=== PATIENT | female | born 1950 | race Caucasian/White ===

== ENCOUNTER 2018-05-19 16:27 | Outpatient (REF) | payer MEDICARE, BC, SELFPAY ==
[2018-05-19 19:20] LABS: Cholesterol 229 mg/dL (50-200); Glucose 101 mg/dL (70-100); HDL Cholesterol 58 mg/dL (40-60); LDL CHOLESTEROL 141 mg/dL (<100); Triglyceride 151 mg/dL (30-150)
== END 2018-05-19 16:47 ==
LOC: NCHCN 16:27
PROVIDERS: PCP Family Medicine; Visit Provider Family Medicine
DX: R73.09 Other abnormal glucose (principal); E78.89 Other lipoprotein metabolism disorders
CPT/HCPCS: 80061; 82947; 83721

== ENCOUNTER 2018-05-30 01:05 | Outpatient (CLI) | payer MEDICARE, BC, SELFPAY ==
--- NOTE | 2018-05-30 12:00 | DI.MAMMO_ITS ---
SYMPTOM/DIAGNOSIS: SCREENING, [facility], [facility], Z00.00 MAMMOGRAMS: Mammograms were interpreted according to the usual protocol including computer analysis with CAD system, tomosynthesis and C view imaging. Comparison is made with exams from [id number]. The breasts are composed of scattered fibroglandular densities, breast density, Category B. No suspicious masses or suspicious microcalcifications are seen. There has been no significant change. IMPRESSION: Category 1B, negative mammogram. Yearly screening mammography is recommended. [facility] ASSESSMENT OF FINDINGS: Negative. Category 1. Patient will receive a letter notifying them of these results. BI-RADS category B. There are scattered areas of fibroglandular density.
== END 2018-05-30 01:25 ==
PROVIDERS: PCP Family Medicine; Visit Provider Family Medicine
DX: Z12.31 Encounter for screening mammogram for malignant neoplasm of breast (principal)
CPT/HCPCS: 77063; 77067

== ENCOUNTER 2019-05-22 16:44 | Outpatient (REF) | payer MEDICARE, BC, SELFPAY ==
[2019-05-22 19:58] LABS: Glucose 94 mg/dL (74-106); TSH (W/Ref FT4) 2.65 uIU/mL (0.36-3.74); Vitamin B12 402 pg/mL (193-986)
== END 2019-05-22 17:04 ==
LOC: NCHCN 16:44
PROVIDERS: PCP Family Medicine; Visit Provider Family Medicine
DX: R20.0 Anesthesia of skin (principal)
CPT/HCPCS: 82947; 82607; 84443

== ENCOUNTER 2019-10-10 21:16 | Outpatient (REF) | payer MEDICARE, BC, SELFPAY ==
[2019-10-10 20:16] LABS: Abs Immature Grans 0.01 k/cumm (0.0-0.09); Absolute Basophil Count 0.04 k/cumm (0.0-0.2); Absolute Eosinophil Count 0.19 k/cumm (0.0-0.7); Absolute Lymphocyte Count 2.12 k/cumm (1.2-3.4); Absolute Monocyte Count 0.61 k/cumm (0.11-0.7); Absolute Neutrophil Count 5.36 k/cumm (1.2-6.7); Basophils % 0.5; Eosinophils % 2.3; HCT 42.6 % (36.0-46.0); HGB 13.9 g/dL (12.0-15.5); Immature Grans % 0.1 %; Lymphocytes % 25.5; Mean Corp. HGB Concentration 32.6 g/dL (32.0-36.0); Mean Corpuscular Volume 91.8 fL (80-95); Mean Platelet Volume 10.8 fL (8.0-11.0); Monocytes % 7.3; Neutrophils % 64.3; Platelet Count 365 x1000/uL (130-400); RBC 4.64 m/cumm (4.00-5.20); RBC Distribution Width 13.7 % (11.7-14.6); White Blood Cell Count 8.33 k/cumm (4.4-10.8)
[2019-10-10 21:09] LABS: ALT 730 U/L (14-59); AST 322 U/L (15-37); Albumin 4.5 g/dL (3.4-5.0); Alkaline Phosphatase 252 U/L (46-116); Anion Gap 10.6 mmol/L (3-11); BUN 17 mg/dL (7-18); Bilirubin, Total 0.9 mg/dL (0.2-1.0); CO2 27.4 mmol/L (21.0-32.0); CREATININE 0.96 mg/dL (0.55-1.02); Calcium 9.7 mg/dL (8.5-10.1); Chloride 103 mmol/L (98-107); Estimated GFR 57.29 (mL/min/1.73m2); Glucose 104 mg/dL (74-106); Potassium 4.6 mmol/L (3.5-5.1); Sodium 141 mmol/L (136-145)
[2019-10-12 10:52] LABS: GGT 507 U/L (5-55)
[2019-10-15 11:47] LABS: Hepatitis A Antibody IgM Negative (Negative); Hepatitis B Core Antibody Negative (Negative); Hepatitis B surface Ag Negative (Negative); Hepatitis C Ab w Rflx HCV PCR Negative (Negative)
== END 2019-10-10 21:36 ==
LOC: NCHCN 21:16
PROVIDERS: PCP Family Medicine; Visit Provider Physician Assistant Medical
DX: R10.11 Right upper quadrant pain (principal); R74.0 Nonspecific elevation of levels of transaminase and lactic acid dehydrogenase [LDH]; R74.8 Abnormal levels of other serum enzymes; R79.89 Other specified abnormal findings of blood chemistry
CPT/HCPCS: 80053; 86704; 86709; 86803; 87340; 82977; 85025

== ENCOUNTER 2019-10-12 03:31 | Outpatient (CLI) | payer MEDICARE, BC, SELFPAY ==
--- NOTE | 2019-10-12 | DI.US_ITS ---
EXAM: US ABDOMEN CLINICAL HISTORY: RUQ PAIN, R10.11 TECHNIQUE: Ultrasound abdomen performed using standard protocol. COMPARISON: No exams were available for comparison FINDINGS: ABDOMINAL AORTA AND IVC: Visualized portions normal caliber. PANCREAS: Normal where visualized. LIVER: Fatty liver. Hepatopedal flow in the Portal Vein. GALLBLADDER: Multiple mobile gallstones. No evidence of wall thickening. Trace amount of pericholecy stic fluid. Gallbladder distended to 6 cm in transverse diameter. BILIARY SYSTEM: Common bile duct measures 1.4 cm.. No choledochal lithiasis seen sonographically. N o intrahepatic biliary ductal dilatation. LEVIN'S SIGN: Negative. KIDNEYS: Kidneys are symmetric in size. No evidence of renal calculi. No evidence of hydronephrosis. No renal mass or cyst identified. SPLEEN: Not enlarged. ASCITES: None seen. IMPRESSION: 1. Cholelithiasis, distended gallbladder and trace pericholecystic fluid. 2. Dilated common bile duct without evidence of choledocholithiasis sonographically. 3. Hepatic steatosis. DATA REPOSITORY:
== END 2019-10-12 03:51 ==
PROVIDERS: PCP Family Medicine; Visit Provider Physician Assistant Medical
DX: R10.11 Right upper quadrant pain (principal); K80.20 Calculus of gallbladder without cholecystitis without obstruction; K83.8 Other specified diseases of biliary tract; K76.0 Fatty (change of) liver, not elsewhere classified
CPT/HCPCS: 76700

== ENCOUNTER → 2019-10-18 11:20 | Outpatient (BNVA) | payer MEDICARE, BC, SELFPAY | PROVIDERS: PCP Family Medicine; Referring Provider Family Medicine; Visit Provider Surgery | DX: K80.20 Calculus of gallbladder without cholecystitis without obstruction (principal) | CPT/HCPCS: 99204 ==

== ENCOUNTER 2019-10-19 09:37 | Outpatient (CLI) | payer MEDICARE, BC, SELFPAY ==
[2019-10-20 02:15] LABS: COVID-19 RT-PCR UVMMC Result Negative (Negative)
== END 2019-10-19 09:57 ==
PROVIDERS: PCP Family Medicine; Visit Provider Surgery
DX: Z11.59 Encounter for screening for other viral diseases (principal); Z01.818 Encounter for other preprocedural examination
CPT/HCPCS: U0003

== ENCOUNTER 2019-10-23 06:42 | Day surgery (SDC) | payer MEDICARE, BC, SELFPAY ==
[2019-10-23] VITALS (7 sets, daily range): BP systolic 97–130; BP diastolic 56–80; PULSE 63–76; RESP 16–23; TEMP 36–36.8; O2SAT 97–100
--- NOTE | 2019-10-23 07:00 | DI.RAD_ITS ---
EXAM: XR CHOLANGIOGRAM OPERATIVE CLINICAL HISTORY: cholecystitis COMPARISON: No exams were available for comparison FINDINGS: C-arm fluoroscopy was utilized by Dr. Kruger during reported OR cholangiogram. Hard copy shows dilated intra and extrahepatic bile ducts to the level of the distal common bile duct where there is signifi cant narrowing suspicious for extrinsic mass or stricture. Fluoro time 129 seconds
[2019-10-23] MEDS: Lactated Ringers 1,000 ML 80 ML IV ×2 (07:30→10:30)
--- NOTE | 2019-10-23 08:28 | W.PM.DSUDISC ---
Discharge Plan Disposition Patient Disposition: HOME Condition: Good Discharge Details Reason For Visit: Laparoscopic cholecystectomy with cholangiogram Attending Provider: Yolande Kruger Primary Care Provider: Nubia Santana V Home Meds and New Rx's Prescriptions: Continued loratadine 10 mg Tablet 10 mg PO DAILY RF: 0 Discharge Instructions Additional Instructions: The dye study of the common bile duct did show a stone. My office will make a referral to [facility]. The top bandage can be removed tomorrow. The steri strips will usually stick for about a week. When the edges start to curl up, they can be removed. It is okay to shower tomorrow, the water can run over the steri strips Do not swim or soak in a tub for two weeks Call for any concerns including fever, increased pain, vomiting, incision redness or drainage. Do not lift more than 15 pounds for two weeks. Walking and stairs are fine. Do not drive if on narcotic pain meds or if limited by pain. May use Tylenol alternating with ibuprofen for pain control. Ice is also an option. The maximum dose for Tylenol is 4000 mg/day. May use ibuprofen 800 mg every 8 hours as needed. If concerned about constipation, you may use a stool softener or milk of magnesia. Referrals: Yolande Kruger MD [ [facility] STAFF PHYSICIAN] - (Return in 10-14 days for a postop visit) Activity:: Do not lift more than 15 pounds for two weeks Remove Dressings/Wound Care:: 24 hours Shower/Bathe:: 24 hours Diet:: Low fat for two weeks Discharge Orders Discharge Orders: Discharge Order (Routine); Ordered 10/23/19 Ordered By: Yolande Kruger DS: Diagnosis Discharge Diagnosis (1) Chronic cholecystitis: Status: Acute (2) Choledocholithiasis: Status: Acute
[2019-10-23] MEDS: ceFAZolin 2 GM/50 ML BAG IVPB (08:30)
[2019-10-23] MEDS: Bupivacaine 0.5% Pres-Free 30 ML VIAL (09:01)
[2019-10-23] MEDS: Omnipaque 300 MG/ML 50 ML BTL (09:02)
--- NOTE | 2019-10-23 10:00 | GB_PTH ---
PATIENT: Analilia Jacome LOC: [facility] U#:[id number] AGE/SX: 69/F ROOM: RE10/23/[address]: Yolande Kruger MD : [id number] BED: DIS: 10/23/2019 SPEC #: [id number] RECD: 10/23/19 12:42 STATUS: [place] REQ #: [id number] NOHEMI: 10/23/19 10:[address]: Yolande Kruger DEPT: Surgical Specimen RECD BY: Enedina Tubbs ENTERED: 10/23/19 12:42 SP TYPE: GB OTHR DR: Nubia Santana V Tissues: 1 - GALLBLADDER Procedures: GROSS AND MICRO LEVEL 3 Comments: [id number]
--- NOTE | 2019-10-23 10:18 | W.PM.OP ---
Date of service: 10/23/19 Time of Service: 10:18 Operative Note Operative Note DATE OF PROCEDURE: 10/23/19 PRE-OP DIAGNOSIS: Cholelithiasis POST-OP DIAGNOSIS: other (Chronic cholecystitis, choledocholithiasis) PROCEDURE: Laparoscopic cholecystectomy with cholangiogram SURGEON: Yolande Kruger ROTARY SHEAR CUTTER: Gita Peterson ANESTHESIA: GETA and local Indications: This patient presented with typical biliary colic symptoms. She had an ultrasound that showed gallstones, trace pericholecystic fluid and a dilated common bile duct. Her LFTs were elevated although her T bili was normal. The patient's history is significant for an episode of jaundice about 5 years ago. Procedure Description: The patient was placed supine on the operating table and after induction of general anesthetic was prepped and draped sterilely. A 5 mm incision was made to the left of the umbilicus after injecting local anesthetic and the abdomen entered under direct visualization. A CO2 pneumoperitoneum was begun and she was placed in reverse Trendelenburg position. The epigastric and 2 lateral ports were placed after injecting local anesthetic under direct visualization. The gallbladder was noted to be distended and quite long. There was some edema in the wall but not dramatic inflammation. The gallbladder was decompressed of 120 cc of bile for easier grasping and manipulation. The fundus was pulled up over the liver and the infundibulum retracted laterally. The common bile duct was noted to be very dilated as were the right and left hepatic ducts. The cystic duct was isolated and visualized going directly onto the gallbladder. This was not dilated. The artery was also visualized going onto the gallbladder and was clipped twice proximally once distally and divided. A clip was applied on the gallbladder side of the cystic duct and then a small opening made in the cystic duct with scissors. The cystic duct was palpated and there were no stones within it. The cholangiocatheter was introduced via the catheter inserted in the right upper quadrant. A tiny stab incision has been made here. The catheter was inserted into the cystic duct and the balloon inflated. There was easy flow of injectable saline. The cholangiogram was performed which showed the catheter to be in good position in the cystic duct. The right and left hepatic ducts were visualized and were quite dilated as was the upper two thirds of the common duct. There was a lot of pressure with injecting and it took a long time for the contrast to pass down into the duodenum. Only a trickle got past what appears to be a large stone and there was a trace amount of contrast that eventually reached into the duodenum. The cholangiocatheter was removed and 2 clips applied on the distal cystic duct. The cystic duct was then divided where the cholangiocatheter had been inserted. The gallbladder was dissected off the liver bed with hook cautery. There is an additional vascular branch that was clipped and divided. Gallbladder was placed in the Endo Catch bag and actually had to be decompressed further because it filled up the entire bag. This was pulled up out through the epigastric incision which had to be extended to allow for passage of the gallbladder with numerous stones. Inspection of the operative site revealed no bleeding or bile leak. The ports were removed with no evidence of bleeding. The fascia was closed at the epigastric incision with 0 Vicryl sutures and the skin closed at all port sites with a 4-0 Monocryl subcuticular stitch. She tolerated procedure well and was stable to recovery. She will be referred to gastroenterology for ERCP.
== END 2019-10-23 12:35 | disposition home or self-care (01) ==
PROVIDERS: PCP Family Medicine; Visit Provider Surgery
PROC: 0FT44ZZ Resection of Gallbladder, Percutaneous Endoscopic Approach (ICD-10-PCS; CPT 47563; principal; 2019-10-23 08:15)
DX: K80.10 Calculus of gallbladder with chronic cholecystitis without obstruction (principal)
CPT/HCPCS: 47563; 74300; 88304; J0131; J0690; J1100; J1885; J2001; J2405; J2704; Q9967

== ENCOUNTER → 2019-11-08 08:51 | Outpatient (BNVA) | payer MEDICARE, BC, SELFPAY | PROVIDERS: PCP Family Medicine; Referring Provider Family Medicine; Visit Provider Surgery | DX: Z48.815 Encounter for surgical aftercare following surgery on the digestive system (principal); Z90.49 Acquired absence of other specified parts of digestive tract ==

== ENCOUNTER 2019-11-29 08:50 | Outpatient (RCR) | payer MEDICARE, BC, SELFPAY ==
[2019-11-29 09:59] LABS: Abs Immature Grans 0.02 10^3/uL (0.0-0.06); Absolute Basophil Count 0.05 10^3/uL (0.0-0.2); Absolute Eosinophil Count 0.23 10^3/uL (0.0-0.7); Absolute Lymphocyte Count 1.58 10^3/uL (1.2-3.4); Absolute Monocyte Count 0.52 10^3/uL (0.1-0.8); Absolute Neutrophil Count 4.28 10^3/uL (1.2-6.7); Basophils % 0.7; Eosinophils % 3.4; Immature Grans % 0.3; Lymphocytes % 23.7; MCH 29.5 pg (27.0-33.0); MCHC 32.5 % (32.0-36.0); MCV 90.9 fL (80-95); MPV 10.7 fL (8.0-11.0); Monocytes % 7.8; Neutrophils % 64.1; Platelet Count 390 10^3/uL (130-400); RDW-SD 47.2 fL; WBC 6.68 10^3/uL (4.4-10.8)
[2019-11-29 10:32] LABS: ALT 85 U/L (14-59); AST 20 U/L (15-37); Albumin 3.7 g/dL (3.4-5.0); Alkaline Phosphatase 330 U/L (46-116); Anion Gap 10.3 mmol/L (3-11); BUN 18 mg/dL (7-18); Bilirubin, Total 1.2 mg/dL (0.2-1.0); CO2 26.7 mmol/L (21.0-32.0); CREATININE 0.75 mg/dL (0.55-1.02); Calcium 9.5 mg/dL (8.5-10.1); Chloride 100 mmol/L (98-107); Glucose 122 mg/dL (74-106); Potassium 4.4 mmol/L (3.5-5.1); Sodium 137 mmol/L (136-145)
[2019-11-30 10:26] LABS: CA 19-9 594 U/mL (<35)
[2019-12-03 19:22] LABS: DPYD Predicted Toxicity Risk Normal
== END 2019-11-30 23:59 | disposition home or self-care (01) ==
LOC: INF 08:50
PROVIDERS: PCP Family Medicine; Visit Provider Internal Medicine Hematology & Oncology
DX: C25.9 Malignant neoplasm of pancreas, unspecified (principal)
CPT/HCPCS: 36415; 80053; 81232; 85025; 86301

== ENCOUNTER 2019-12-28 04:54 | Outpatient (RCR) | payer MEDICARE, BC, SELFPAY ==
[2019-12-14 09:04] LABS: Abs Immature Grans 0.02 10^3/uL (0.0-0.06); Absolute Basophil Count 0.04 10^3/uL (0.0-0.2); Absolute Eosinophil Count 0.12 10^3/uL (0.0-0.7); Absolute Lymphocyte Count 1.47 10^3/uL (1.2-3.4); Absolute Monocyte Count 0.36 10^3/uL (0.1-0.8); Absolute Neutrophil Count 5.72 10^3/uL (1.2-6.7); Basophils % 0.5; Eosinophils % 1.6; HCT 36.6 % (36.0-46.0); Immature Grans % 0.3; MCH 29.8 pg (27.0-33.0); MCHC 32.8 % (32.0-36.0); MCV 90.8 fL (80-95); MPV 11.3 fL (8.0-11.0); Monocytes % 4.7; Neutrophils % 73.9; Nucleated RBC 0 %; Platelet Count 199 10^3/uL (130-400); RBC 4.03 10^6/uL (3.93-5.22); RDW 13.9 % (11.7-14.6); RDW-SD 46.5 fL; WBC 7.73 10^3/uL (4.4-10.8)
[2019-12-14] MEDS: Normal Saline Flush 10 ML SYR IVP (09:27)
[2019-12-14] MEDS: Heparin 500 UNITS/5 ML SYRINGE IVP (09:28)
[2019-12-14 09:30] LABS: ALT 28 U/L (14-59); AST 16 U/L (15-37); Albumin 3.6 g/dL (3.4-5.0); Alkaline Phosphatase 128 U/L (46-116); Anion Gap 9.1 mmol/L (3-11); BUN 17 mg/dL (7-18); Bilirubin, Total 0.9 mg/dL (0.2-1.0); CO2 26.9 mmol/L (21.0-32.0); Chloride 100 mmol/L (98-107); Glucose 243 mg/dL (74-106); Sodium 136 mmol/L (136-145); Total Protein 7.4 g/dL (6.4-8.2)
[2019-12-28] MEDS: Normal Saline Flush 10 ML SYR IVP (10:35)
[2019-12-28] MEDS: Heparin 500 UNITS/5 ML SYRINGE IVP (10:35)
[2019-12-28 11:01] LABS: Abs Immature Grans 0.02 10^3/uL (0.0-0.06); Absolute Basophil Count 0.02 10^3/uL (0.0-0.2); Absolute Eosinophil Count 0.15 10^3/uL (0.0-0.7); Absolute Lymphocyte Count 1.66 10^3/uL (1.2-3.4); Absolute Monocyte Count 0.65 10^3/uL (0.1-0.8); Absolute Neutrophil Count 5.92 10^3/uL (1.2-6.7); Basophils % 0.2; Eosinophils % 1.8; HCT 35.3 % (36.0-46.0); HGB 11.5 g/dL (11.2-15.7); Immature Grans % 0.2; Lymphocytes % 19.7; MCH 29.1 pg (27.0-33.0); MCHC 32.6 % (32.0-36.0); MCV 89.4 fL (80-95); MPV 10.4 fL (8.0-11.0); Monocytes % 7.7; Neutrophils % 70.4; Nucleated RBC 0 %; Platelet Count 285 10^3/uL (130-400); RBC 3.95 10^6/uL (3.93-5.22); RDW 13.5 % (11.7-14.6); RDW-SD 44.2 fL; WBC 8.42 10^3/uL (4.4-10.8)
[2019-12-28 11:30] LABS: ALT 25 U/L (14-59); AST 18 U/L (15-37); Albumin 3.1 g/dL (3.4-5.0); Alkaline Phosphatase 84 U/L (46-116); Anion Gap 8.3 mmol/L (3-11); BUN 12 mg/dL (7-18); Bilirubin, Total 0.6 mg/dL (0.2-1.0); CO2 29.7 mmol/L (21.0-32.0); CREATININE 0.78 mg/dL (0.55-1.02); Calcium 8.7 mg/dL (8.5-10.1); Chloride 101 mmol/L (98-107); Glucose 129 mg/dL (74-106); Potassium 3.5 mmol/L (3.5-5.1); Sodium 139 mmol/L (136-145); Total Protein 6.8 g/dL (6.4-8.2)
[2019-12-31 12:43] LABS: CA 19-9 221 U/mL (<35)
== END 2019-12-31 23:59 | disposition home or self-care (01) ==
LOC: INF 04:54
PROVIDERS: Internal Medicine Hematology & Oncology; PCP Family Medicine; Visit Provider Internal Medicine Hematology & Oncology
DX: K86.89 Other specified diseases of pancreas (principal); C25.0 Malignant neoplasm of head of pancreas
CPT/HCPCS: 36591; 80053; 81232; 85025; 86301

== ENCOUNTER 2020-01-10 14:16 | Emergency (ER) | payer MEDICARE, BC, SELFPAY ==
[2020-01-10] VITALS (17 sets, daily range): BP systolic 115–145; BP diastolic 53–62; PULSE 89–108; RESP 13–27; TEMP 38–38.2; O2SAT 85–96
--- NOTE | 2020-01-10 14:30 | DI.CT_ITS ---
EXAM: CT CHEST PE ABD PELVIS W CLINICAL HISTORY: FEVER, LOWER BACK PAIN, DYSPNEA. TECHNIQUE: Imaging Protocol: Axial CT angiography was performed with multi-slice acquisition and mu lti-planar and/or 3D reconstructions. CONTRAST MATERIAL: Intravenous: Omnipaque 350 Contrast volume:100 cc COMPARISON: No exams were available for comparison FINDINGS: Chest CT: There is no evidence of pulmonary emboli or aortic dissection. There are no thoracic compr ession fractures or evidence of pneumothorax. The lungs are clear. A port is noted over the right u pper chest. Heart size is normal. The lungs are clear. There is no adenopathy. Abdomen/Pelvic CT: There is a cyst common bile duct stent. Patient is status post cholecystectomy. There is air in the biliary tree. There is debris versus mass in the distal aspect of the stent. Th ere is prominence of the left adrenal gland without focal mass. There is calcification of the aorta but no evidence of dissection or vascular occlusion. The spleen is normal in size. The kidneys are unremarkable. There is extensive diverticulosis, greatest of the sigmoid. There is no evidence of d iverticulitis. The appendix appears normal. There is no bowel dilatation. There is no ascites. Th e bladder is nearly empty. Uterus and ovaries are unremarkable. Degenerative changes are seen in th e spine. There is no evidence of compression fractures. No lytic or blastic lesions are identified. IMPRESSION: No evidence of pulmonary embolism. No acute abnormality is seen in the abdomen or pelvis. There is a distal common bile duct stent with some debris versus mass distally. RADIATION DOSE DELIVERED: Total DLP DATA REPOSITORY: All CT scans at this facility are submitted to the National Radiology Data Registry (NRDR) Dose Index Registry (DIR) with the [employer] (ACR). RADIATION OPTIMIZATION: All CT scans at this facility use at least one of these dose optimization te chniques: automated exposure control; mA and/or kV adjustment per patient size (includes targeted exa ms where dose is matched to clinical indication); or iterative reconstruction.
--- NOTE | 2020-01-10 14:41 | ED.GENADUL_ITS ---
Discharge Plan Disposition Patient Disposition: HOME Condition: Stable Discharge Details Clinical Impression: Fever Primary Care Provider: Nubia Santana V ED Provider: Antony Perez Home Meds and New Rx's Prescriptions: Continued loratadine 10 mg Tablet 10 mg PO QAM RF: 0 Discharge Instructions Additional Instructions: your blood work and cat scans did not show any concerning findings I spoke with the business continuity planner oncologist that works with Dr. Lu who after review of your blood work and imaging results felt it was appropriate for you to be d/c'd and f/u with Dr. Lu as scheduled tomorrow if you feel more ill, have severe weakness or severe worsening pain return to the emergency department Medical Decision Making 69 yo female with hx of pancreatic cancer on her second round of chemotherapy per patient comes in with fever to 100.3 at home starting today. SHe has noticed very mild shortness of breath the past few days as well, no cough, no travel, no vomit, no abdominal pain. Does also note some right lower back pain, no urinary symptoms. No midline pain, no saddle anesthesia, normal gait and reflexes. Given her being on chemo concern for neutropenic fever, will obtain cultures from her port and lab work, and given her the dyspnea obtain cta of the chest to eval for pe vs pna and also ct abd/pelvis to evaluate for kidney stone, pyelo, and possible abscess imaging and labs unremarkable, she remains hd stable, hr 90 bp 120/60. Dr. Lu not in the office today, does have an appointment with him tomorrow. She feels well and feels comfortable with d/c and f/u with him tomorrow, will consult with oncology at [facility] spoke with Dr. Puentes from oncology at [facility] who after review of pt's lab values, no neutropenia and reassuring imaging could f/u tomorrow with them and return to the ED if worsening. Pt remains feeling well and is comfrotable with d/c Differential Diagnosis Differential Diagnosis: neutropenic fever, pna, uti, abscess Medical Records Medical records reviewed: Yes I reviewed the patient's medical records. Imaging Data Radiologic Study: Attestation: I personally reviewed and interpreted this imaging study as follows: Imaging: CT Scan Radiologist's impression: MPRESSION: No evidence of pulmonary embolism. No acute abnormality is seen in the abdomen or pelvis. There is a distal common bile duct stent with some debris versus mass distally. Lab Data Lab results reviewed: Yes I reviewed the patient's lab results. HPI General Mode of arrival: ambulatory . Date/Time Provider Initiated Documentation: 01/10/20 14:21 . Limitations to Documentation: no limitations . Information obtained by: patient . History of Present Illness 69 year old F presents to the emergency department with the chief complaint of fever, described as moderate, and it has been constant. No relieving factors improve symptom(s), No exacerbating factors reported . Patient did receive the following treatments prior to arrival, none Related Data Home Medications Medication Instructions Recorded Confirmed loratadine 10 mg PO QAM 10/23/19 01/10/20 Allergies Allergy/AdvReac Type Severity Reaction Status Date / Time acetaminophen AdvReac Severe vomiting Verified 01/10/20 15:23 [From Darvocet-N] and nausea propoxyphene AdvReac Severe vomiting Verified 01/10/20 15:23 [From Darvocet-N] and nausea General Stated Complaint: Fever OBDULIA: 2 Review of Systems All systems reviewed & are unremarkable except as noted in HPI and below Constitutional Constitutional: Denies chills and Denies weakness Cardiovascular Cardiovascular: Denies chest pain Respiratory Respiratory: Denies cough Gastrointestinal Gastrointestinal: Denies abdominal pain, Denies nausea and Denies vomiting Musculoskeletal Musculoskeletal: Denies joint swelling Neurologic Neurologic: Denies weakness Psychiatric Psychiatric: Denies depression [facility] Medical History (Updated 01/10/20 @ 16:20 by Antony Perez MD) Arthritis Surgical History S/P ACL repair left Family History Mother Breast cancer Social History Smoking/Tobacco Use Status: Former Tobacco Use Alcohol Intake: current Alcohol Intake frequency: holidays/special occasions only Alcohol type: wine and other Substance use type: does not use Current gender identity: female Do you feel safe at home: Yes Do you feel safe in your relationship?: Yes Exam Const General: no acute distress Orientation: alert HENMT Head: normal to inspection Ears: external ears normal General nose exam: external nose normal Mouth: moist mucous membranes Eyes General: appearance normal, both eyes and all related structures Neck Neck: normal visual inspection Resp Effort & Inspection: normal respiratory effort and able to speak in complete sentences Cardio Rate: regular rate GI Palpation: soft Skin General skin exam: no rashes or lesions noted Neuro General: patient alert and patient oriented x3 Extrem General: normal to inspection Psych Mental Status: mental status grossly normal Course Vital Signs Vital signs: Vital Signs Temperature 38.2 C H 01/10/20 14:20 Pulse 108 H 01/10/20 14:20 Respiratory Rate 20 01/10/20 14:20 Blood Pressure 145/53 H 01/10/20 14:20 Pulse Oximetry 96 01/10/20 14:20 Temperature 38.2 C H 01/10/20 14:20 Temperature Source Skin 01/10/20 14:20 Pulse 108 H 01/10/20 14:20 Respiratory Rate 20 01/10/20 14:20 Respiratory Effort 01/10/20 14:27 Blood Pressure 145/53 H 01/10/20 14:20 Blood Pressure Position Sitting 01/10/20 14:20 Pulse Oximetry 96 01/10/20 14:20 Oxygen Delivery Method Room Air 01/10/20 14:20 Oxygen Flow Rate 0 01/10/20 14:20 Pain Level 4 01/10/20 14:20 Comment took tylenol last night 01/10/20 14:20 Lab/Test Results Lab/Test Results: 01/10/20 14:22 Blood Blood Culture - Pending 01/10/20 14:22 Blood Blood Culture - Pending
[2020-01-10] MEDS: Normal Saline 1,000 ML 1000 ML IV (15:00)
[2020-01-10 15:23] LABS: Bilirubin Negative (Negative); Blood Trace-lysed (Negative); Clarity Clear (Clear); Glucose Negative (Negative); Ketones Negative (Negative); Leukocyte Esterase Negative (Negative); Nitrite Negative (Negative); Specific Gravity 1.025 (1.005-1.025); Urobilinogen 0.2 EU/dL (Up TO 0.2); pH 5.5 (5-8)
[2020-01-10 15:26] LABS: Abs Immature Grans 0.02 10^3/uL (0.0-0.06); Absolute Basophil Count 0.01 10^3/uL (0.0-0.2); Absolute Eosinophil Count 0.03 10^3/uL (0.0-0.7); Absolute Lymphocyte Count 0.59 10^3/uL (1.2-3.4); Absolute Monocyte Count 0.51 10^3/uL (0.1-0.8); Absolute Neutrophil Count 4.85 10^3/uL (1.2-6.7); Basophils % 0.2; Eosinophils % 0.5; HCT 33.1 % (36.0-46.0); HGB 10.8 g/dL (11.2-15.7); Immature Grans % 0.3; Lymphocytes % 9.8; MCH 29.2 pg (27.0-33.0); MCHC 32.6 % (32.0-36.0); MCV 89.5 fL (80-95); MPV 9.8 fL (8.0-11.0); Monocytes % 8.5; Neutrophils % 80.7; Nucleated RBC 0 %; Platelet Count 194 10^3/uL (130-400); RDW 13.7 % (11.7-14.6); RDW-SD 44.5 fL; WBC 6.01 10^3/uL (4.4-10.8)
[2020-01-10 15:29] LABS: Lactate 2.1 mmol/L (0.6-1.4)
[2020-01-10] MEDS: Normal Saline - Diluent 50 ML VIAL IV (15:29)
[2020-01-10] MEDS: Omnipaque 350 MG/ML 100 ML BTL IJ (15:29)
[2020-01-10 15:33] LABS: Bacteria Negative HPF (Negative); C & S Indicated? C&S Done As Ordered; Casts 0-2 Hyaline LPF (Negative); Crystals Negative HPF (Negative); Epithelial Cells Few HPF (Negative); Mucus Trace (Negative)
[2020-01-10 15:42] LABS: ALT 30 U/L (14-59); AST 18 U/L (15-37); Albumin 3.1 g/dL (3.4-5.0); Alkaline Phosphatase 91 U/L (46-116); BUN 11 mg/dL (7-18); Bilirubin, Direct 0.19 mg/dL (0.00-0.20); Bilirubin, Total 0.7 mg/dL (0.2-1.0); CREATININE 0.87 mg/dL (0.55-1.02); Calcium 8.5 mg/dL (8.5-10.1); Chloride 98 mmol/L (98-107); Glucose 146 mg/dL (74-106); Magnesium 1.7 mg/dL (1.8-2.4); Potassium 3.8 mmol/L (3.5-5.1); Sodium 134 mmol/L (136-145); Total Protein 6.7 g/dL (6.4-8.2)
[2020-01-10 15:48] LABS: PTT Activated 25.6 sec (21.0-31.4); Prothrombin Time 10.4 sec (9.3-11.0)
[2020-01-10 16:11] LABS: Procalcitonin 0.9 ng/mL
[2020-01-11 01:43] LABS: COVID-19 RT-PCR UVMMC Result Negative (Negative)
--- NOTE | 2020-01-11 08:40 | NUR.NOTE ---
Nursing Note: Pt contacted via phone and notified of negative covid and influenza results, pt verbalized understanding and had no questions.
== END 2020-01-10 17:00 | disposition home or self-care (01) ==
PROVIDERS: Emergency Provider Emergency Medicine; PCP Family Medicine
DX: R50.9 Fever, unspecified (principal); C25.9 Malignant neoplasm of pancreas, unspecified; R06.00 Dyspnea, unspecified; Z79.899 Other long term (current) drug therapy; Z11.59 Encounter for screening for other viral diseases
CPT/HCPCS: 71275; 74177; 80053; 84145; 87040; 87449; 96360; 99285; U0003; 81003; 81015; 82248; 83605; 83735; 85025; 85610; 85730; 87086; 99284; J3490

== ENCOUNTER 2020-01-18 04:00 | Outpatient (RCR) | payer MEDICARE, BC, SELFPAY ==
[2020-01-18] MEDS: Normal Saline Flush 10 ML SYR IVP (13:50)
[2020-01-18] MEDS: Heparin 500 UNITS/5 ML SYRINGE IV (13:50)
[2020-01-18 14:18] LABS: ALT 36 U/L (14-59); AST 20 U/L (15-37); Albumin 3.1 g/dL (3.4-5.0); Alkaline Phosphatase 158 U/L (46-116); BUN 16 mg/dL (7-18); Bilirubin, Total 0.4 mg/dL (0.2-1.0); Calcium 8.7 mg/dL (8.5-10.1); Chloride 102 mmol/L (98-107); Glucose 148 mg/dL (74-106); Potassium 3.7 mmol/L (3.5-5.1); Sodium 138 mmol/L (136-145); Total Protein 6.7 g/dL (6.4-8.2)
[2020-01-18 14:18] LABS: Abs Immature Grans 0.07 10^3/uL (0.0-0.06); Absolute Basophil Count 0.02 10^3/uL (0.0-0.2); Absolute Eosinophil Count 0.28 10^3/uL (0.0-0.7); Absolute Lymphocyte Count 2.42 10^3/uL (1.2-3.4); Absolute Monocyte Count 0.73 10^3/uL (0.1-0.8); Absolute Neutrophil Count 2.51 10^3/uL (1.2-6.7); Basophils % 0.3; Eosinophils % 4.6; HCT 33.5 % (36.0-46.0); HGB 10.8 g/dL (11.2-15.7); Immature Grans % 1.2; Lymphocytes % 40.1; MCH 29.2 pg (27.0-33.0); MCHC 32.2 % (32.0-36.0); MCV 90.5 fL (80-95); MPV 9.7 fL (8.0-11.0); Monocytes % 12.1; Neutrophils % 41.7; Nucleated RBC 0 %; RDW 14.5 % (11.7-14.6); RDW-SD 46.6 fL; WBC 6.03 10^3/uL (4.4-10.8)
[2020-01-18 14:22] LABS: Platelet Count 373 10^3/uL (130-400)
[2020-01-21 10:02] LABS: CA 19-9 188 U/mL (<35)
== END 2020-01-30 23:59 | disposition home or self-care (01) ==
LOC: INF 04:00
PROVIDERS: PCP Family Medicine; Visit Provider Internal Medicine Hematology & Oncology
DX: C25.0 Malignant neoplasm of head of pancreas (principal); K86.89 Other specified diseases of pancreas; Z45.2 Encounter for adjustment and management of vascular access device
CPT/HCPCS: 36591; 80053; 85025; 86301

== ENCOUNTER 2020-02-21 02:14 | Outpatient (CLI) | payer MEDICARE, BC, SELFPAY ==
--- NOTE | 2020-02-21 | DI.CT_ITS ---
EXAM: CT CHEST/ABD/PEL W CLINICAL HISTORY: PANCREATIC CA,C25.0,ASSESS TREATMENT RESPONSE. TECHNIQUE: Imaging Protocol: Axial computed tomography images with coronal and sagittal reformatted images were created and reviewed CONTRAST MATERIAL: Intravenous: Omnipaque 350 Contrast volume: 100 cc Oral: yes COMPARISON: CT CT CHEST PE ABD PELVIS W from 01/10/2020 FINDINGS: CHEST: Thyroid: Normal Tracheobronchial tree: Patent . Mediastinum and Carla: No dominant adenopathy or fluid collection. Pulmonary parenchyma: No consolidation or dominant measurable mass. No suspicious pulmonary nodules. Pleura: No effusion or pneumothorax. Lymph nodes: Within normal limits. Aorta: Dilatation of the ascending aorta to 3.9 cm.. Heart: Normal size. Bones: The bones appear osteopenic. No discrete lytic or blastic lesions are identified. ABDOMEN: Liver: Normal density. Tiny hypodensity posteriorly in the right lobe appears stable. This is too s mall to characterize. Gallbladder and biliary tract: Status post cholecystectomy. A stent is again noted in the common eugenia e duct. There is biliary air and some fluid. There is again question of mass versus debris within t he distal portion of the stent. No discrete, measurable pancreatic mass is seen. No change in dista l pancreatic atrophy. Spleen: Normal. Kidneys: Normal size, contour and axis. No radiodense stones or obstructive uropathy. No masses seen. Small bilateral cysts. Adrenal glands: Stable appearance of bilateral symmetric adrenal gland enlargement. Aorta: Abdominal portion non-dilated. Moderate atherosclerotic changes. Lymph nodes: Within normal limits. PELVIS: Bladder: Symmetric distention, no gross wall thickening. Bowel: No obstruction or bowel wall thickening. Diverticulosis lower descending and sigmoid colon. I ncreased stool. Lipomatous ileocecal valve. Normal appendix. Peritoneal cavity: No ascites, collection or mesenteric inflammatory response. Bones: Degenerative changes. The bones appear osteopenic. No gross lytic or blastic lesions are cherry ntified. Reproductive organs: Within normal limits. IMPRESSION: Stable appearance common bile duct stent containing debris and/or mass. No discrete pancreatic mass is visible. There is no evidence of adenopathy. A tiny hypodensity in the liver is too small to carolina racterize. RADIATION DOSE DELIVERED: 1,463.52mGy.cm Total DLP DATA REPOSITORY: All CT scans at this facility are submitted to the National Radiology Data Registry (NRDR) Dose Index Registry (DIR) with the [employer] (ACR). RADIATION OPTIMIZATION: All CT scans at this facility use at least one of these dose optimization te chniques: automated exposure control; mA and/or kV adjustment per patient size (includes targeted exa ms where dose is matched to clinical indication); or iterative reconstruction.
[2020-02-21] MEDS: Breeza Beverage 473 ML BTL PO ×2 (07:50→09:41)
[2020-02-21] MEDS: Omnipaque 350 MG/ML 50 ML BTL IJ (07:51)
[2020-02-21] MEDS: Omnipaque 350 MG/ML 100 ML BTL IJ (09:40)
[2020-02-21] MEDS: Normal Saline - Diluent 50 ML VIAL IV (09:41)
[2020-02-21] MEDS: Normal Saline Flush 10 ML SYR IVP (09:41)
== END 2020-02-21 02:34 ==
PROVIDERS: PCP Family Medicine; Visit Provider Internal Medicine Hematology & Oncology
DX: C25.0 Malignant neoplasm of head of pancreas (principal)
CPT/HCPCS: 74177; 71260; J3490; Q9967

== ENCOUNTER 2020-02-29 10:30 | Outpatient (RCR) | payer MEDICARE, BC, SELFPAY ==
[2020-02-01] MEDS: Normal Saline Flush 10 ML SYR IVP (09:43)
[2020-02-01] MEDS: Heparin 500 UNITS/5 ML SYRINGE IV (09:43)
[2020-02-01 09:47] LABS: Abs Immature Grans 0.01 10^3/uL (0.0-0.06); Absolute Basophil Count 0.02 10^3/uL (0.0-0.2); Absolute Eosinophil Count 0.08 10^3/uL (0.0-0.7); Absolute Lymphocyte Count 1.57 10^3/uL (1.2-3.4); Absolute Monocyte Count 0.48 10^3/uL (0.1-0.8); Absolute Neutrophil Count 2.91 10^3/uL (1.2-6.7); Basophils % 0.4; Eosinophils % 1.6; HCT 33.8 % (36.0-46.0); HGB 10.8 g/dL (11.2-15.7); Immature Grans % 0.2; MCH 28.3 pg (27.0-33.0); MCV 88.7 fL (80-95); Monocytes % 9.5; Neutrophils % 57.3; Nucleated RBC 0 %; Platelet Count 203 10^3/uL (130-400); RBC 3.81 10^6/uL (3.93-5.22); RDW 15.4 % (11.7-14.6); WBC 5.07 10^3/uL (4.4-10.8)
[2020-02-01 10:02] LABS: ALT 30 U/L (14-59); AST 25 U/L (15-37); Albumin 3.2 g/dL (3.4-5.0); Alkaline Phosphatase 102 U/L (46-116); Anion Gap 6.6 mmol/L (3-11); BUN 19 mg/dL (7-18); Bilirubin, Total 0.6 mg/dL (0.2-1.0); CO2 29.4 mmol/L (21.0-32.0); Calcium 9.3 mg/dL (8.5-10.1); Chloride 103 mmol/L (98-107); Glucose 130 mg/dL (74-106); Potassium 3.9 mmol/L (3.5-5.1); Sodium 139 mmol/L (136-145); Total Protein 6.9 g/dL (6.4-8.2)
[2020-02-04 10:31] LABS: CA 19-9 192 U/mL (<35)
[2020-02-15] MEDS: Normal Saline Flush 10 ML SYR IVP (11:57)
[2020-02-15] MEDS: Heparin 500 UNITS/5 ML SYRINGE IV (11:58)
[2020-02-15 12:05] LABS: Abs Immature Grans 0.01 10^3/uL (0.0-0.06); Absolute Basophil Count 0.02 10^3/uL (0.0-0.2); Absolute Eosinophil Count 0.07 10^3/uL (0.0-0.7); Absolute Lymphocyte Count 1.94 10^3/uL (1.2-3.4); Absolute Neutrophil Count 2.63 10^3/uL (1.2-6.7); Basophils % 0.4; Eosinophils % 1.3; HCT 34.7 % (36.0-46.0); HGB 11.3 g/dL (11.2-15.7); Immature Grans % 0.2; Lymphocytes % 36.8; MCH 29.3 pg (27.0-33.0); MCHC 32.6 % (32.0-36.0); MCV 89.9 fL (80-95); MPV 10.1 fL (8.0-11.0); Monocytes % 11.4; Neutrophils % 49.9; Nucleated RBC 0 %; Platelet Count 207 10^3/uL (130-400); RBC 3.86 10^6/uL (3.93-5.22); RDW 16.5 % (11.7-14.6); RDW-SD 53.6 fL; WBC 5.27 10^3/uL (4.4-10.8)
[2020-02-15 12:20] LABS: ALT 34 U/L (14-59); AST 27 U/L (15-37); Albumin 3.3 g/dL (3.4-5.0); Alkaline Phosphatase 97 U/L (46-116); Anion Gap 6.7 mmol/L (3-11); BUN 19 mg/dL (7-18); Bilirubin, Total 0.5 mg/dL (0.2-1.0); CO2 29.3 mmol/L (21.0-32.0); CREATININE 0.71 mg/dL (0.55-1.02); Calcium 8.9 mg/dL (8.5-10.1); Chloride 105 mmol/L (98-107); Glucose 94 mg/dL (74-106); Potassium 3.9 mmol/L (3.5-5.1); Sodium 141 mmol/L (136-145); Total Protein 6.9 g/dL (6.4-8.2)
[2020-02-18 13:06] LABS: CA 19-9 211 U/mL (<35)
[2020-02-29] MEDS: Heparin 500 UNITS/5 ML SYRINGE IV (10:43)
[2020-02-29] MEDS: Normal Saline Flush 10 ML SYR IVP (10:43)
[2020-02-29 11:02] LABS: Abs Immature Grans 0.02 10^3/uL (0.0-0.06); Absolute Basophil Count 0.02 10^3/uL (0.0-0.2); Absolute Eosinophil Count 0.13 10^3/uL (0.0-0.7); Absolute Lymphocyte Count 1.69 10^3/uL (1.2-3.4); Absolute Monocyte Count 0.52 10^3/uL (0.1-0.8); Absolute Neutrophil Count 2.76 10^3/uL (1.2-6.7); Basophils % 0.4; Eosinophils % 2.5; HCT 35.7 % (36.0-46.0); HGB 11.5 g/dL (11.2-15.7); Immature Grans % 0.4; Lymphocytes % 32.9; MCH 29.1 pg (27.0-33.0); MCHC 32.2 % (32.0-36.0); MCV 90.4 fL (80-95); MPV 10.2 fL (8.0-11.0); Monocytes % 10.1; Neutrophils % 53.7; Nucleated RBC 0 %; Platelet Count 188 10^3/uL (130-400); RBC 3.95 10^6/uL (3.93-5.22); RDW 17.2 % (11.7-14.6); RDW-SD 56.4 fL; WBC 5.14 10^3/uL (4.4-10.8)
[2020-02-29 11:17] LABS: ALT 36 U/L (14-59); AST 28 U/L (15-37); Albumin 3.2 g/dL (3.4-5.0); Alkaline Phosphatase 107 U/L (46-116); Anion Gap 7.1 mmol/L (3-11); BUN 15 mg/dL (7-18); Bilirubin, Total 0.5 mg/dL (0.2-1.0); CO2 28.9 mmol/L (21.0-32.0); CREATININE 0.69 mg/dL (0.55-1.02); Calcium 8.8 mg/dL (8.5-10.1); Chloride 103 mmol/L (98-107); Glucose 114 mg/dL (74-106); Potassium 3.7 mmol/L (3.5-5.1); Sodium 139 mmol/L (136-145)
[2020-03-05 14:16] LABS: CA 19-9 320 U/mL (<35)
== END 2020-03-01 23:59 | disposition home or self-care (01) ==
LOC: INF 10:30
PROVIDERS: PCP Family Medicine; Visit Provider Internal Medicine Hematology & Oncology
DX: K86.89 Other specified diseases of pancreas (principal); C25.0 Malignant neoplasm of head of pancreas
CPT/HCPCS: 36591; 80053; 85025; 86301

== ENCOUNTER 2020-03-28 05:26 | Outpatient (RCR) | payer MEDICARE, BC, SELFPAY ==
[2020-03-14] MEDS: Heparin 500 UNITS/5 ML SYRINGE (12:22)
[2020-03-14] MEDS: Normal Saline Flush 10 ML SYR IVP (12:23)
[2020-03-14 12:38] LABS: Absolute Basophil Count 0.02 10^3/uL (0.0-0.2); Absolute Eosinophil Count 0.15 10^3/uL (0.0-0.7); Absolute Lymphocyte Count 1.77 10^3/uL (1.2-3.4); Absolute Monocyte Count 0.59 10^3/uL (0.1-0.8); Basophils % 0.5; Eosinophils % 3.4; HCT 34.8 % (36.0-46.0); HGB 11.2 g/dL (11.2-15.7); MCH 29.2 pg (27.0-33.0); MCHC 32.2 % (32.0-36.0); MCV 90.9 fL (80-95); MPV 10.4 fL (8.0-11.0); Monocytes % 13.3; Neutrophils % 42.8; Nucleated RBC 0 %; Platelet Count 157 10^3/uL (130-400); RBC 3.83 10^6/uL (3.93-5.22); RDW 17.2 % (11.7-14.6); RDW-SD 56.8 fL; WBC 4.43 10^3/uL (4.4-10.8)
[2020-03-14 12:50] LABS: ALT 60 U/L (14-59); AST 39 U/L (15-37); Albumin 3.3 g/dL (3.4-5.0); Alkaline Phosphatase 149 U/L (46-116); Anion Gap 6.6 mmol/L (3-11); BUN 16 mg/dL (7-18); Bilirubin, Total 0.5 mg/dL (0.2-1.0); CO2 31.4 mmol/L (21.0-32.0); CREATININE 0.74 mg/dL (0.55-1.02); Calcium 9.2 mg/dL (8.5-10.1); Chloride 102 mmol/L (98-107); Glucose 114 mg/dL (74-106); Potassium 4.1 mmol/L (3.5-5.1); Sodium 140 mmol/L (136-145); Total Protein 7.3 g/dL (6.4-8.2)
[2020-03-18 12:14] LABS: CA 19-9 509 U/mL (<35)
[2020-03-28] MEDS: Normal Saline Flush 10 ML SYR IVP (09:32)
[2020-03-28] MEDS: Heparin 500 UNITS/5 ML SYRINGE IV (09:32)
[2020-03-28 09:48] LABS: Abs Immature Grans 0.01 10^3/uL (0.0-0.06); Absolute Basophil Count 0.02 10^3/uL (0.0-0.2); Absolute Eosinophil Count 0.09 10^3/uL (0.0-0.7); Absolute Lymphocyte Count 1.86 10^3/uL (1.2-3.4); Absolute Monocyte Count 0.63 10^3/uL (0.1-0.8); Absolute Neutrophil Count 2.37 10^3/uL (1.2-6.7); Basophils % 0.4; Eosinophils % 1.8; HCT 34.2 % (36.0-46.0); HGB 11.1 g/dL (11.2-15.7); Immature Grans % 0.2; Lymphocytes % 37.3; MCH 30.1 pg (27.0-33.0); MCHC 32.5 % (32.0-36.0); MCV 92.7 fL (80-95); MPV 10.3 fL (8.0-11.0); Monocytes % 12.7; Neutrophils % 47.6; Nucleated RBC 0 %; Platelet Count 176 10^3/uL (130-400); RBC 3.69 10^6/uL (3.93-5.22); RDW 17.4 % (11.7-14.6); RDW-SD 58.3 fL; WBC 4.98 10^3/uL (4.4-10.8)
[2020-03-28 10:01] LABS: ALT 34 U/L (14-59); AST 28 U/L (15-37); Albumin 3.3 g/dL (3.4-5.0); Alkaline Phosphatase 138 U/L (46-116); Anion Gap 5.1 mmol/L (3-11); BUN 19 mg/dL (7-18); Bilirubin, Total 0.4 mg/dL (0.2-1.0); CO2 29.9 mmol/L (21.0-32.0); CREATININE 0.86 mg/dL (0.55-1.02); Calcium 8.9 mg/dL (8.5-10.1); Chloride 104 mmol/L (98-107); Glucose 118 mg/dL (74-106); Potassium 4.1 mmol/L (3.5-5.1); Sodium 139 mmol/L (136-145); Total Protein 7.2 g/dL (6.4-8.2)
[2020-03-31 12:02] LABS: CA 19-9 795 U/mL (<35)
== END 2020-03-31 23:59 | disposition home or self-care (01) ==
LOC: INF 05:26
PROVIDERS: PCP Family Medicine; Visit Provider Internal Medicine Hematology & Oncology
DX: C25.0 Malignant neoplasm of head of pancreas (principal); K86.89 Other specified diseases of pancreas; Z45.2 Encounter for adjustment and management of vascular access device
CPT/HCPCS: 36591; 80053; 85025; 86301

== ENCOUNTER 2020-04-23 00:45 | Outpatient (CLI) | payer MEDICARE, BC, SELFPAY ==
--- NOTE | 2020-04-23 14:50 | DI.MAMMO_ITS ---
EXAM: MG MAMMO SCREENING CLINICAL HISTORY: SCREENING, [facility],Z00.00 TECHNIQUE: Bilateral full field digital CC and MLO mammographic images were obtained with 3D tomosyn thesis and utilizing computer aided detection (CAD). COMPARISON: Available for comparison. FINDINGS: Masses/Architectural Distortion: None seen. Microcalcifications: No suspicious pleomorphic-type are seen. Skin Thickening/Nipple Retraction: None. IMPRESSION: 1. No significant interval change with no specific features of malignancy noted. 2. Unless there is more urgent need, screening mammography is recommended, as per [employer] guidelines. BI-RADS Category 1 - Negative Breast Density - Category B - Scattered areas of fibroglandular density Breast density category C or D implies that the patient has dense breast tissue. Dense breast tissue is very common and is not abnormal but dense breast tissue can make it harder to find cancer on a ma mmogram. Also, dense breast tissue may increase their breast cancer risk. This information about the result of the mammogram report was provided to the patient to raise their awareness. Use this report when you speak with the patient about their risks for breast cancer, which includes their family hist ory. At that time, you may recommend for more screening tests (Ultrasound or MRI) as they might be us eful based on their risk. A negative radiographic report should not delay biopsy if a dominant or clinically suspicious mass is present. Up to ten percent of cancers are not identified on mammography. A negative report may reinforce clinical impression. Adenosis and dense breasts may obscure an underlying neoplasm. False positive reports average 6 to 10%. Patient will receive a letter notifying them of these results.
== END 2020-04-23 01:05 ==
PROVIDERS: PCP Family Medicine; Visit Provider Family Medicine
DX: Z12.31 Encounter for screening mammogram for malignant neoplasm of breast (principal)
CPT/HCPCS: 77063; 77067

== ENCOUNTER 2020-04-28 02:15 | Outpatient (RCR) | payer MEDICARE, BC, SELFPAY ==
[2020-04-11] MEDS: Normal Saline Flush 10 ML SYR IVP (11:39)
[2020-04-11] MEDS: Heparin 500 UNITS/5 ML SYRINGE IV (11:40)
[2020-04-11 11:43] LABS: Abs Immature Grans 0.01 10^3/uL (0.0-0.06); Absolute Basophil Count 0.01 10^3/uL (0.0-0.2); Absolute Eosinophil Count 0.06 10^3/uL (0.0-0.7); Absolute Lymphocyte Count 1.93 10^3/uL (1.2-3.4); Absolute Monocyte Count 0.61 10^3/uL (0.1-0.8); Absolute Neutrophil Count 2.63 10^3/uL (1.2-6.7); Basophils % 0.2; Eosinophils % 1.1; HCT 33.6 % (36.0-46.0); Immature Grans % 0.2; Lymphocytes % 36.8; MCH 30.2 pg (27.0-33.0); MCHC 32.7 % (32.0-36.0); MCV 92.3 fL (80-95); MPV 10.2 fL (8.0-11.0); Monocytes % 11.6; Neutrophils % 50.1; Nucleated RBC 0 %; Platelet Count 163 10^3/uL (130-400); RBC 3.64 10^6/uL (3.93-5.22); RDW 17.5 % (11.7-14.6); RDW-SD 59.5 fL; WBC 5.25 10^3/uL (4.4-10.8)
[2020-04-11 11:57] LABS: ALT 32 U/L (14-59); AST 31 U/L (15-37); Albumin 3.4 g/dL (3.4-5.0); Alkaline Phosphatase 114 U/L (46-116); Anion Gap 6.5 mmol/L (3-11); BUN 18 mg/dL (7-18); Bilirubin, Total 0.6 mg/dL (0.2-1.0); CO2 29.5 mmol/L (21.0-32.0); CREATININE 0.85 mg/dL (0.55-1.02); Chloride 103 mmol/L (98-107); Glucose 100 mg/dL (74-106); Sodium 139 mmol/L (136-145); Total Protein 7.3 g/dL (6.4-8.2)
[2020-04-14 12:25] LABS: CA 19-9 818 U/mL (<35)
[2020-04-28] MEDS: Normal Saline Flush 10 ML SYR IVP (12:04)
[2020-04-28] MEDS: Heparin 500 UNITS/5 ML SYRINGE IV (12:04)
[2020-04-28 12:24] LABS: Abs Immature Grans 0.02 10^3/uL (0.0-0.06); Absolute Basophil Count 0.03 10^3/uL (0.0-0.2); Absolute Lymphocyte Count 2.01 10^3/uL (1.2-3.4); Absolute Neutrophil Count 4.32 10^3/uL (1.2-6.7); Basophils % 0.4; Eosinophils % 1.4; HCT 37.2 % (36.0-46.0); HGB 11.7 g/dL (11.2-15.7); Immature Grans % 0.3; Lymphocytes % 28.4; MCH 30.1 pg (27.0-33.0); MCHC 31.5 % (32.0-36.0); MCV 95.6 fL (80-95); MPV 9.9 fL (8.0-11.0); Monocytes % 8.5; Nucleated RBC 0 %; Platelet Count 238 10^3/uL (130-400); RBC 3.89 10^6/uL (3.93-5.22); RDW-SD 56.6 fL; WBC 7.08 10^3/uL (4.4-10.8)
[2020-04-28 12:36] LABS: ALT 39 U/L (14-59); AST 29 U/L (15-37); Albumin 3.5 g/dL (3.4-5.0); Alkaline Phosphatase 131 U/L (46-116); Anion Gap 5.8 mmol/L (3-11); BUN 16 mg/dL (7-18); Bilirubin, Total 0.5 mg/dL (0.2-1.0); CO2 29.2 mmol/L (21.0-32.0); CREATININE 0.72 mg/dL (0.55-1.02); Calcium 9.4 mg/dL (8.5-10.1); Chloride 102 mmol/L (98-107); Glucose 101 mg/dL (74-106); Potassium 4.1 mmol/L (3.5-5.1); Sodium 137 mmol/L (136-145); Total Protein 7.6 g/dL (6.4-8.2)
[2020-04-30 11:53] LABS: CA 19-9 3922 U/mL (<35)
== END 2020-05-01 23:59 | disposition home or self-care (01) ==
LOC: INF 02:15
PROVIDERS: PCP Family Medicine; Visit Provider Internal Medicine Hematology & Oncology
DX: C25.0 Malignant neoplasm of head of pancreas (principal); K86.89 Other specified diseases of pancreas; Z45.2 Encounter for adjustment and management of vascular access device
CPT/HCPCS: 36591; 80053; 85025; 86301

== ENCOUNTER 2020-04-28 16:22 | Outpatient (REF) | payer MEDICARE, BC, SELFPAY ==
[2020-04-28 17:23] LABS: Bilirubin Negative (Negative); Blood Negative (Negative); Clarity Clear (Clear); Glucose Negative (Negative); Ketones Negative (Negative); Leukocyte Esterase Negative (Negative); Nitrite Negative (Negative); Urobilinogen 0.2 EU/dL (Up TO 0.2); pH 5.5 (5-8)
== END 2020-04-28 16:42 ==
LOC: LBN 16:22
PROVIDERS: PCP Family Medicine; Visit Provider Nurse Practitioner Family
DX: C25.0 Malignant neoplasm of head of pancreas (principal)
CPT/HCPCS: 81003

== ENCOUNTER 2020-05-14 03:05 | Outpatient (CLI) | payer MEDICARE, BC, SELFPAY ==
--- NOTE | 2020-05-14 11:30 | DI.CT_ITS ---
EXAM: CT ABDOMEN PELVIS W CLINICAL HISTORY: INCREASING LLQ PAIN RADIATING TO RT,? DIVERTICULITIS,ON CHEMO FOR PANCREATI. TECHNIQUE: Imaging Protocol: Axial computed tomography images with coronal and sagittal reformatted images were created and reviewed CONTRAST MATERIAL: Intravenous: Omnipaque 100cc Oral: Yes COMPARISON: CT CT CHEST/ABD/PEL W from 02/21/2020 FINDINGS: VISUALIZED LUNG BASES: Mild increased markings in the left lower lobe posterior basal segment. Also mild nodular infiltrate noted in the posterior basal segment of the right lower lobe.. These finding s were not evident on the CT scan of January 2020. There are no pleural effusions. ABDOMEN: There is no ascites. LIVER: Mild steatosis. No ominous focal hepatic lesions. Air is seen within intrahepatic ducts in t his patient who has a CBD stent in place. Fluid is seen within the CBD stent. GALLBLADDER/BILIARY: The gallbladder is again noted be surgically absent. CBD stent in place PANCREAS: There is no obvious discernible mass in the pancreas. A parenchymal calcification in the p ancreatic head is noted. Few smaller calcifications are seen in the pancreatic tail region. The roberts creatic duct is slightly dilated, exhibiting diameter 3.5-4.0 millimeters, more so than previous. Th ere is also some streaking again noted in the fat surrounding the celiac and superior mesenteric vess els but no gross lymphadenopathy evident in this region nor in the beatris hepatis SPLEEN: Spleen is not enlarged. No obvious intrasplenic lesions. Splenic and portal veins are paten t. ADRENALS: Large mint both adrenal glands is unchanged. KIDNEYS:No cysts evident. No solid renal masses. No calculi nor hydronephrosis.. ABDOMINAL AORTA: Abdominal aorta is not enlarged and there is no pyuewqrvtdizcgl-loie-zvermv adenopat hy. ABDOMINAL WALL/GI: No evidence of significant anterior abdominal wall hernia. No bowel obstruction. PELVIS: GI: No evidence of appendicitis.There is extensive sigmoid diverticulosis. No obvious acute divertic ulitis. LYMPH NODES: There is no intrapelvic nor inguinal adenopathy. REPRODUCTIVE: The uterus and adnexal regions appear age-appropriate. There is no free fluid in the c ul-de-sac. URINARY BLADDER: No calculi nor obvious masses evident OSSEOUS: No significant osseous lesions. IMPRESSION: 1. Compared to the prior CT scan 02/21/2020 there is again noted a permanent-type a self expanding st ent in the CBD which contains fluid but no evidence of obvious obstruction of the stent. Air is seen within the biliary tree above this level in the liver, as expected. Is difficult to delineate an ac tual mass in the pancreatic head. The pancreatic duct has slightly increased in size when compared t o previous, presently measuring 3.5-4.0 millimeters. There is streaking in the peripancreatic tissue s around the head and uncinate process which may be related to the intrinsic disease or possibly rela kirill to an element of pancreatitis (which may occur subsequent to CBD stent placement). The increased tissue density also surrounds these celiac artery as well as the origin of its bifurcation vessels, these being the common hepatic artery and splenic artery. Also surrounding the SMA origin. This may be pathologic tissue dist despite the absence of bulky adenopathy at this level. 2. There are no metastatic appearing lesions in the liver. Are small lymph nodes in the mesentery, t he largest measuring 12 millimeters. 3. Gallbladder is again noted be surgically absent. 4. Unchanged bilateral adrenal enlargement. 5. There is extensive sigmoid diverticulosis. No obvious acute diverticulitis. Please note that sub tle case of diverticulitis can be missed given the extensive involvement of the sigmoid. 6. There is mild infiltrate in both lung bases not previously present. There are no pleural effusio ns. There is mild degenerative anterolisthesis of L4 upon L5. No lytic osseous lesions identified RADIATION DOSE DELIVERED: 1,425.8mGy.cm Total DLP DATA REPOSITORY: All CT scans at this facility are submitted to the National Radiology Data Registry (NRDR) Dose Index Registry (DIR) with the [employer] ([employer]). RADIATION OPTIMIZATION: All CT scans at this facility use at least one of these dose optimization te chniques: automated exposure control; mA and/or kV adjustment per patient size (includes targeted exa ms where dose is matched to clinical indication); or iterative reconstruction.
[2020-05-14] MEDS: Breeza Beverage 473 ML BTL PO (11:58)
[2020-05-14] MEDS: Omnipaque 350 MG/ML 50 ML BTL PO (11:59)
[2020-05-14] MEDS: Omnipaque 350 MG/ML 100 ML BTL IJ (12:00)
[2020-05-14] MEDS: Normal Saline - Diluent 50 ML VIAL IV (12:01)
== END 2020-05-14 03:25 ==
PROVIDERS: PCP Family Medicine; Visit Provider Preventive Medicine Undersea and Hyperbaric Medicine
DX: R10.32 Left lower quadrant pain (principal); K57.30 Diverticulosis of large intestine without perforation or abscess without bleeding; R91.8 Other nonspecific abnormal finding of lung field; K86.89 Other specified diseases of pancreas; Z90.49 Acquired absence of other specified parts of digestive tract; Z96.89 Presence of other specified functional implants
CPT/HCPCS: 36591; 80053; 74177; 85025; 86301; J3490; Q9967

== ENCOUNTER 2020-05-30 04:09 | Outpatient (RCR) | payer MEDICARE, BC, SELFPAY ==
[2020-05-09] MEDS: Heparin 500 UNITS/5 ML SYRINGE IV (12:42)
[2020-05-09] MEDS: Normal Saline Flush 10 ML SYR IVP (12:42)
[2020-05-09 13:02] LABS: Abs Immature Grans 0.02 10^3/uL (0.0-0.06); Absolute Basophil Count 0.02 10^3/uL (0.0-0.2); Absolute Eosinophil Count 0.08 10^3/uL (0.0-0.7); Absolute Lymphocyte Count 0.98 10^3/uL (1.2-3.4); Absolute Monocyte Count 0.68 10^3/uL (0.1-0.8); Absolute Neutrophil Count 3.74 10^3/uL (1.2-6.7); Basophils % 0.4; Eosinophils % 1.4; HCT 37.5 % (36.0-46.0); HGB 12.1 g/dL (11.2-15.7); Immature Grans % 0.4; Lymphocytes % 17.8; MCH 30.7 pg (27.0-33.0); MCHC 32.3 % (32.0-36.0); MCV 95.2 fL (80-95); MPV 9.9 fL (8.0-11.0); Monocytes % 12.3; Neutrophils % 67.7; Nucleated RBC 0 %; Platelet Count 227 10^3/uL (130-400); RBC 3.94 10^6/uL (3.93-5.22); RDW 15.1 % (11.7-14.6); RDW-SD 52.9 fL; WBC 5.52 10^3/uL (4.4-10.8)
[2020-05-09 13:14] LABS: ALT 26 U/L (14-59); AST 25 U/L (15-37); Albumin 3.6 g/dL (3.4-5.0); Alkaline Phosphatase 116 U/L (46-116); BUN 11 mg/dL (7-18); Bilirubin, Total 0.6 mg/dL (0.2-1.0); CREATININE 0.63 mg/dL (0.55-1.02); Calcium 8.9 mg/dL (8.5-10.1); Chloride 102 mmol/L (98-107); Glucose 87 mg/dL (74-106); Potassium 3.6 mmol/L (3.5-5.1); Sodium 139 mmol/L (136-145); Total Protein 7.4 g/dL (6.4-8.2)
[2020-05-12 12:09] LABS: CA 19-9 2146 U/mL (<35)
[2020-05-14] MEDS: Heparin 500 UNITS/5 ML SYRINGE IV (12:00)
[2020-05-14] MEDS: Normal Saline Flush 10 ML SYR IVP (12:00)
[2020-05-14 12:08] LABS: Abs Immature Grans 0.02 10^3/uL (0.0-0.06); Absolute Basophil Count 0.01 10^3/uL (0.0-0.2); Absolute Eosinophil Count 0.11 10^3/uL (0.0-0.7); Absolute Lymphocyte Count 0.73 10^3/uL (1.2-3.4); Absolute Monocyte Count 0.57 10^3/uL (0.1-0.8); Absolute Neutrophil Count 3.48 10^3/uL (1.2-6.7); Basophils % 0.2; Eosinophils % 2.2; HCT 38.1 % (36.0-46.0); HGB 12.7 g/dL (11.2-15.7); Immature Grans % 0.4; Lymphocytes % 14.8; MCH 31.7 pg (27.0-33.0); MCHC 33.3 % (32.0-36.0); MPV 10.1 fL (8.0-11.0); Monocytes % 11.6; Neutrophils % 70.8; Nucleated RBC 0 %; Platelet Count 194 10^3/uL (130-400); RBC 4.01 10^6/uL (3.93-5.22); RDW 15.5 % (11.7-14.6); RDW-SD 53.2 fL; WBC 4.92 10^3/uL (4.4-10.8)
[2020-05-14 12:27] LABS: ALT 27 U/L (14-59); AST 26 U/L (15-37); Albumin 3.6 g/dL (3.4-5.0); Alkaline Phosphatase 101 U/L (46-116); Anion Gap 9.7 mmol/L (3-11); BUN 13 mg/dL (7-18); Bilirubin, Total 0.6 mg/dL (0.2-1.0); CO2 27.3 mmol/L (21.0-32.0); Calcium 9.1 mg/dL (8.5-10.1); Chloride 101 mmol/L (98-107); Glucose 99 mg/dL (74-106); Potassium 3.9 mmol/L (3.5-5.1); Sodium 138 mmol/L (136-145); Total Protein 7.5 g/dL (6.4-8.2)
[2020-05-19 13:10] LABS: CA 19-9 4654 U/mL (<35)
[2020-05-23] MEDS: Normal Saline Flush 10 ML SYR IVP (08:50)
[2020-05-23 09:10] LABS: Abs Immature Grans 0.02 10^3/uL (0.0-0.06); Absolute Basophil Count 0.02 10^3/uL (0.0-0.2); Absolute Eosinophil Count 0.06 10^3/uL (0.0-0.7); Absolute Lymphocyte Count 0.39 10^3/uL (1.2-3.4); Absolute Monocyte Count 0.72 10^3/uL (0.1-0.8); Absolute Neutrophil Count 4.42 10^3/uL (1.2-6.7); Basophils % 0.4; Eosinophils % 1.1; HCT 39.1 % (36.0-46.0); HGB 12.8 g/dL (11.2-15.7); Immature Grans % 0.4; Lymphocytes % 6.9; MCH 31.5 pg (27.0-33.0); MCHC 32.7 % (32.0-36.0); MCV 96.3 fL (80-95); MPV 9.8 fL (8.0-11.0); Monocytes % 12.8; Neutrophils % 78.4; Nucleated RBC 0 %; Platelet Count 178 10^3/uL (130-400); RBC 4.06 10^6/uL (3.93-5.22); RDW 15.8 % (11.7-14.6); RDW-SD 54.8 fL; WBC 5.63 10^3/uL (4.4-10.8)
[2020-05-23 09:21] LABS: ALT 35 U/L (14-59); AST 31 U/L (15-37); Albumin 3.6 g/dL (3.4-5.0); Alkaline Phosphatase 110 U/L (46-116); Anion Gap 7.2 mmol/L (3-11); BUN 12 mg/dL (7-18); Bilirubin, Total 0.8 mg/dL (0.2-1.0); CO2 28.8 mmol/L (21.0-32.0); CREATININE 0.72 mg/dL (0.55-1.02); Calcium 9.1 mg/dL (8.5-10.1); Chloride 100 mmol/L (98-107); Glucose 121 mg/dL (74-106); Sodium 136 mmol/L (136-145); Total Protein 7.6 g/dL (6.4-8.2)
[2020-05-30] MEDS: Normal Saline Flush 10 ML SYR IVP (08:51)
[2020-05-30] MEDS: Heparin 500 UNITS/5 ML SYRINGE IV (08:52)
[2020-05-30 09:07] LABS: Abs Immature Grans 0.01 10^3/uL (0.0-0.06); Absolute Basophil Count 0.02 10^3/uL (0.0-0.2); Absolute Eosinophil Count 0.12 10^3/uL (0.0-0.7); Absolute Monocyte Count 0.67 10^3/uL (0.1-0.8); Absolute Neutrophil Count 3.62 10^3/uL (1.2-6.7); Basophils % 0.4; Eosinophils % 2.5; HCT 35.2 % (36.0-46.0); HGB 11.8 g/dL (11.2-15.7); Immature Grans % 0.2; Lymphocytes % 6.3; MCH 32.2 pg (27.0-33.0); MCHC 33.5 % (32.0-36.0); MCV 96.2 fL (80-95); MPV 10.4 fL (8.0-11.0); Monocytes % 14.1; Neutrophils % 76.5; Nucleated RBC 0 %; Platelet Count 141 10^3/uL (130-400); RBC 3.66 10^6/uL (3.93-5.22); RDW 16.3 % (11.7-14.6); RDW-SD 57.3 fL; WBC 4.74 10^3/uL (4.4-10.8)
[2020-05-30 09:30] LABS: ALT 30 U/L (14-59); AST 25 U/L (15-37); Albumin 3.1 g/dL (3.4-5.0); Alkaline Phosphatase 99 U/L (46-116); Anion Gap 3.7 mmol/L (3-11); BUN 9 mg/dL (7-18); Bilirubin, Total 0.6 mg/dL (0.2-1.0); CO2 31.3 mmol/L (21.0-32.0); CREATININE 0.7 mg/dL (0.55-1.02); Calcium 8.7 mg/dL (8.5-10.1); Chloride 102 mmol/L (98-107); Glucose 136 mg/dL (74-106); Potassium 3.7 mmol/L (3.5-5.1); Sodium 137 mmol/L (136-145); Total Protein 6.7 g/dL (6.4-8.2)
[2020-06-02 12:23] LABS: CA 19-9 6816 U/mL (<35)
== END 2020-06-01 23:59 | disposition home or self-care (01) ==
LOC: INF 04:09
PROVIDERS: Nurse Practitioner Family; PCP Family Medicine; Visit Provider Internal Medicine Hematology & Oncology
DX: C25.0 Malignant neoplasm of head of pancreas (principal); K86.89 Other specified diseases of pancreas; Z45.2 Encounter for adjustment and management of vascular access device
CPT/HCPCS: 36591; 80053; 85025; 86301

== ENCOUNTER 2020-06-13 03:28 | Outpatient (RCR) | payer MEDICARE, BC, SELFPAY ==
[2020-06-13 12:10] LABS: Abs Immature Grans 0.01 10^3/uL (0.0-0.06); Absolute Basophil Count 0.02 10^3/uL (0.0-0.2); Absolute Eosinophil Count 0.03 10^3/uL (0.0-0.7); Absolute Lymphocyte Count 0.43 10^3/uL (1.2-3.4); Absolute Monocyte Count 0.55 10^3/uL (0.1-0.8); Absolute Neutrophil Count 3.31 10^3/uL (1.2-6.7); Basophils % 0.5; Eosinophils % 0.7; HGB 11.8 g/dL (11.2-15.7); Immature Grans % 0.2; Lymphocytes % 9.9; MCH 31.8 pg (27.0-33.0); MCHC 32.8 % (32.0-36.0); MPV 10.5 fL (8.0-11.0); Monocytes % 12.6; Neutrophils % 76.1; Nucleated RBC 0 %; Platelet Count 129 10^3/uL (130-400); RBC 3.71 10^6/uL (3.93-5.22); RDW 16.7 % (11.7-14.6); RDW-SD 59.9 fL; WBC 4.35 10^3/uL (4.4-10.8)
[2020-06-13] MEDS: Normal Saline Flush 10 ML SYR IVP (12:11)
[2020-06-13] MEDS: Heparin 500 UNITS/5 ML SYRINGE IV (12:11)
[2020-06-13 12:18] LABS: ALT 33 U/L (14-59); AST 31 U/L (15-37); Albumin 3.1 g/dL (3.4-5.0); Alkaline Phosphatase 128 U/L (46-116); Anion Gap 7.3 mmol/L (3-11); BUN 11 mg/dL (7-18); Bilirubin, Total 0.7 mg/dL (0.2-1.0); CO2 27.7 mmol/L (21.0-32.0); CREATININE 0.6 mg/dL (0.55-1.02); Calcium 8.6 mg/dL (8.5-10.1); Chloride 102 mmol/L (98-107); Glucose 102 mg/dL (74-106); Sodium 137 mmol/L (136-145); Total Protein 6.8 g/dL (6.4-8.2)
[2020-06-13 20:44] LABS: Vitamin B12 514 pg/mL (193-986)
== END 2020-06-29 23:59 | disposition home or self-care (01) ==
LOC: INF 03:28
PROVIDERS: PCP Family Medicine; Visit Provider Internal Medicine Hematology & Oncology
DX: K86.89 Other specified diseases of pancreas (principal); G60.8 Other hereditary and idiopathic neuropathies; C25.0 Malignant neoplasm of head of pancreas; Z45.2 Encounter for adjustment and management of vascular access device
CPT/HCPCS: 36591; 80053; 82607; 85025

== ENCOUNTER 2020-08-15 02:38 | Outpatient (RCR) | payer MEDICARE, BC, SELFPAY ==
[2020-08-18] MEDS: Normal Saline Flush 10 ML SYR IVP (09:18)
[2020-08-18] MEDS: Heparin 500 UNITS/5 ML SYRINGE IV (09:18)
[2020-08-29] MEDS: Normal Saline Flush 10 ML SYR IVP (10:40)
[2020-08-29 10:54] LABS: Abs Immature Grans 0.02 10^3/uL (0.0-0.06); Absolute Basophil Count 0.02 10^3/uL (0.0-0.2); Absolute Eosinophil Count 0.08 10^3/uL (0.0-0.7); Absolute Lymphocyte Count 0.52 10^3/uL (1.2-3.4); Absolute Monocyte Count 0.57 10^3/uL (0.1-0.8); Basophils % 0.4; Eosinophils % 1.8; HCT 31.4 % (36.0-46.0); HGB 10.1 g/dL (11.2-15.7); Immature Grans % 0.4; Lymphocytes % 11.5; MCH 30.8 pg (27.0-33.0); MCHC 32.2 % (32.0-36.0); MCV 95.7 fL (80-95); MPV 9.3 fL (8.0-11.0); Monocytes % 12.6; Neutrophils % 73.3; Nucleated RBC 0 %; Platelet Count 261 10^3/uL (130-400); RBC 3.28 10^6/uL (3.93-5.22); RDW 13.1 % (11.7-14.6); RDW-SD 46.1 fL; WBC 4.51 10^3/uL (4.4-10.8)
[2020-08-29 11:22] LABS: ALT 27 U/L (14-59); AST 22 U/L (15-37); Albumin 3.2 g/dL (3.4-5.0); Alkaline Phosphatase 158 U/L (46-116); Anion Gap 9.6 mmol/L (3-11); BUN 12 mg/dL (7-18); Bilirubin, Total 0.5 mg/dL (0.2-1.0); CO2 28.4 mmol/L (21.0-32.0); CREATININE 0.9 mg/dL (0.55-1.02); Calcium 8.9 mg/dL (8.5-10.1); Chloride 102 mmol/L (98-107); Glucose 188 mg/dL (74-106); Potassium 4.1 mmol/L (3.5-5.1); Sodium 140 mmol/L (136-145); Total Protein 7.2 g/dL (6.4-8.2)
== END 2020-08-15 23:59 ==
LOC: INF 02:38
PROVIDERS: PCP Family Medicine; Visit Provider Internal Medicine Hematology & Oncology
DX: K86.89 Other specified diseases of pancreas (principal); Z45.2 Encounter for adjustment and management of vascular access device; D53.9 Nutritional anemia, unspecified
CPT/HCPCS: 36591; 80053; 96523; 82728; 83540; 83550; 85025; 86301

== ENCOUNTER 2020-08-15 09:30 | Outpatient (RCR) | payer MEDICARE, BC, SELFPAY ==
[2020-08-15 09:51] LABS: Abs Immature Grans 0.02 10^3/uL (0.0-0.06); Absolute Basophil Count 0.02 10^3/uL (0.0-0.2); Absolute Eosinophil Count 0.15 10^3/uL (0.0-0.7); Absolute Lymphocyte Count 0.54 10^3/uL (1.2-3.4); Absolute Monocyte Count 0.51 10^3/uL (0.1-0.8); Absolute Neutrophil Count 4.43 10^3/uL (1.2-6.7); Basophils % 0.4; Eosinophils % 2.6; HCT 33.7 % (36.0-46.0); Immature Grans % 0.4; Lymphocytes % 9.5; MCH 31.2 pg (27.0-33.0); MCHC 32.6 % (32.0-36.0); MCV 95.5 fL (80-95); MPV 9.7 fL (8.0-11.0); Neutrophils % 78.1; Nucleated RBC 0 %; Platelet Count 184 10^3/uL (130-400); RBC 3.53 10^6/uL (3.93-5.22); RDW 13.2 % (11.7-14.6); RDW-SD 46.2 fL; WBC 5.67 10^3/uL (4.4-10.8)
[2020-08-15 09:59] LABS: ALT 25 U/L (14-59); AST 22 U/L (15-37); Albumin 3.2 g/dL (3.4-5.0); Alkaline Phosphatase 145 U/L (46-116); BUN 14 mg/dL (7-18); Bilirubin, Total 0.6 mg/dL (0.2-1.0); CREATININE 0.9 mg/dL (0.55-1.02); Calcium 8.7 mg/dL (8.5-10.1); Chloride 103 mmol/L (98-107); Glucose 181 mg/dL (74-106); Sodium 141 mmol/L (136-145); Total Protein 7.1 g/dL (6.4-8.2)
[2020-08-15] MEDS: Normal Saline Flush 10 ML SYR IVP (10:40)
[2020-08-15 12:30] LABS: Iron 42 ug/dL (50-170); Total Iron Binding Capacity 254 ug/dL (250-450); Transferrin Sat 17 % (15-50)
[2020-08-15 12:44] LABS: Ferritin 548 ng/mL (8-252)
== END 2020-08-29 23:59 | disposition home or self-care (01) ==
LOC: INF 09:30
PROVIDERS: PCP Family Medicine; Visit Provider Internal Medicine Hematology & Oncology
DX: C25.9 Malignant neoplasm of pancreas, unspecified (principal); D53.9 Nutritional anemia, unspecified; C78.00 Secondary malignant neoplasm of unspecified lung; K86.89 Other specified diseases of pancreas; Z45.2 Encounter for adjustment and management of vascular access device
CPT/HCPCS: 36591; 80053; 82728; 83540; 83550; 85025; 86301

== ENCOUNTER 2020-08-18 02:05 | Outpatient (CLI) | payer MEDICARE, BC, SELFPAY ==
[2020-08-18] MEDS: Omnipaque 350 MG/ML 50 ML BTL PO (10:44)
[2020-08-18] MEDS: Normal Saline Flush 10 ML SYR IVP (10:45)
[2020-08-18] MEDS: Normal Saline - Diluent 50 ML VIAL IV (10:45)
[2020-08-18] MEDS: Breeza Beverage 473 ML BTL PO (10:46)
--- NOTE | 2020-08-18 10:55 | DI.CT_ITS ---
EXAM: CT CHEST/ABD/PEL W CLINICAL HISTORY: PANCREATIC CA METASTASIZED TO LUNG,C25.9,C78.00. TECHNIQUE: Imaging Protocol: Axial computed tomography images with coronal and sagittal reformatted images were created and reviewed CONTRAST MATERIAL: Intravenous: Omnipaque 350 Contrast volume:100 ml Oral: None COMPARISON: CT CT ABDOMEN PELVIS W from 05/14/2020 FINDINGS: CHEST: LUNGS: There are bilateral intra arterial pulmonary artery defects consistent with bilateral pulmonar y emboli. This affects all lobes of both lungs. There are pleural based infiltrates in both lower l obes tree not evident on the 05/14/2020 study are either pulmonary infarctions possibly neoplastic di sease. There are no associated pleural effusions. No rib destruction. Some mild infiltrate is note d in both upper lobes as well as patchy infiltrate throughout the remainder of the lung montero. Ther e are no significant focal findings in the trachea and mainstem bronchi. MEDIASTINUM: There is no hilar nor mediastinal adenopathy. Visualized thyroid unremarkable. CARDIAC: Heart size is normal. There is no pericardial effusion.There is mild shift of the intervent ricular septum. Diameter ascending thoracic aorta is upper normal. There is no aortic dissection. Left vertebral artery is noted to originate is separate vessel off the aortic arch. There is no laina cardial effusion. OSSEOUS: There is enhancing density in the spinal canal at approximately T5 level which may be metast atic versus other pathology such as meningioma.There is degenerative anterolisthesis of L4 relative t o L5, approximately 4 millimeters.. ABDOMEN: There is no ascites. LIVER: There is pneumobilia again noted in this patient with a CBD stent in place. Amount of pneumob ann is approximately equal to previous and predominantly left hepatic lobe. There are no obvious me tastatic appearing lesions in the liver. GALLBLADDER/BILIARY: The gallbladder is again noted be surgically absent. PANCREAS: CBD stent again noted. Pancreatic duct dilatation is again noted. Parenchymal calcificati ons are again noted towards the pancreatic tail as well as in the pancreatic body and head. Mild inc reased density around the common hepatic artery which is unchanged as well as around the celiac. The re is no increasing abnormal tissue in this region. SPLEEN: Spleen is not enlarged. There are no intrasplenic lesions. Splenic and portal veins are bronson nt. ADRENALS: Thickening of the left adrenal gland both limbs again noted. Right adrenal gland is unchan ged. KIDNEYS: There now appears to be an element of hydronephrosis on the right side which was not previou sly evident. This is related to some tissue encircling the ureteropelvic junction area. Probably me tastatic. No cysts evident. ABDOMINAL AORTA: Calcified but not enlarged. No increasing para-aortic adenopathy. LYMPH NODES: No increasing adenopathy. ABDOMINAL WALL/GI: No evidence of significant anterior abdominal wall hernia. No bowel obstruction. PELVIS: LYMPH NODES: There is no intrapelvic nor inguinal adenopathy. GI: No evidence of appendicitis.Sigmoid diverticulosis without evidence of obvious acute diverticulit is. URINARY BLADDER: No calculi nor masses evident REPRODUCTIVE: Age-appropriate OSSEOUS: Degenerative anterolisthesis of L4 upon L5. No lytic osseous lesions of lumbar spine IMPRESSION: 1. There are now extensive bilateral pulmonary emboli involving all lobes of both lungs and there ar e also infiltrates in both lung bases which may be pulmonary infarctions. Other consideration for EB neoplastic or infectious etiology. 1. Compared to 05/14/2020 there is again noted CBD stent with pneumobilia and least stable appearance of the pancreatic head and uncinate process region. Pancreatic duct remain significantly dilated. There is no peripancreatic fluid collection. 2. No new metastatic lesions in the liver. Adrenals appear unchanged but there is now unilateral rig ht-sided hydronephrosis evident. This appears to have its origin at the level of the ureteropelvic j unction. 3. Sigmoid diverticulosis. No obvious acute diverticulitis. No appendicitis no bowel obstruction. 4. Enhancing abnormal finding in the size thoracic spinal column approximately T5 level may be metast atic versus meningioma versus other pathology. Unilateral right-sided hydronephrosis. Findings called by myself to the oncologist vocational nurse 08/18/2020. RADIATION DOSE DELIVERED: 1,505.93mGy.cm Total DLP DATA REPOSITORY: All CT scans at this facility are submitted to the National Radiology Data Registry (NRDR) Dose Index Registry (DIR) with the [employer] ([employer]). RADIATION OPTIMIZATION: All CT scans at this facility use at least one of these dose optimization te chniques: automated exposure control; mA and/or kV adjustment per patient size (includes targeted exa ms where dose is matched to clinical indication); or iterative reconstruction.
== END 2020-08-18 02:25 ==
PROVIDERS: PCP Family Medicine; Visit Provider Internal Medicine Hematology & Oncology
DX: C25.0 Malignant neoplasm of head of pancreas (principal); C78.01 Secondary malignant neoplasm of right lung; C78.02 Secondary malignant neoplasm of left lung; I26.99 Other pulmonary embolism without acute cor pulmonale; R91.8 Other nonspecific abnormal finding of lung field; N13.30 Unspecified hydronephrosis; R93.7 Abnormal findings on diagnostic imaging of other parts of musculoskeletal system
CPT/HCPCS: 74177; 71260; Q9967

== ENCOUNTER 2020-08-18 18:42 | Inpatient (IN) | payer MEDICARE, BC, SELFPAY ==
[2020-08-18] VITALS (21 sets, daily range): BP systolic 107–144; BP diastolic 51–80; PULSE 94–110; RESP 14–20; TEMP 36.8–37.5; O2SAT 94–97
--- NOTE | 2020-08-18 18:48 | ED.GENADUL_ITS ---
Discharge Plan Disposition Patient Disposition: [facility] INPATIENT Condition: Stable Discharge Details Chief Complaint: GenMedical Clinical Impression: Pulmonary emboli Admit Date/Time: 08/18/20 20:26 Admit Provider: Binh Mims Attending Provider: Binh Mims Primary Care Provider: Nubia Santana V ED Provider: Krystle Ortega Discharge Data Discharge Date/Time-TO BE ENTERED AT DEPARTURE: 08/18/20 21:58 Medical Decision Making Patient is a pleasant 70-year-old female, accompanied by her , with chief complaint of pulmonary emboli. Patient had routine imaging for oncology follow- up. Was contacted by her oncologist who advised that she has multiple primary emboli and would need admission. Patient's past medical history is pertinent for pancreatic cancer which is known metastasis to the lung. Patient been having shortness of breath for approximately 1 week. She did have a wedge resection last month. Also began chemotherapy recently. Initially, she had been significant chemotherapy was was causing the shortness of breath and fatigue. She denies any fevers or chills. Reports a mild, nonproductive cough. No lower extremity pain. No chest pain. No pleuritic discomfort. On exam, patient appears nontoxic. She is hemodynamically stable. Lungs are clear. Normal cardiac exam. No lower extremity edema. Calves are soft and nontender. Imaging was reviewed by radiologist later today as follows: FINDINGS: CHEST: LUNGS: There are bilateral intra arterial pulmonary artery defects consistent with bilateral pulmonary emboli. This affects all lobes of both lungs. There are pleural based infiltrates in both lower lobes tree not evident on the 05/14/2020 study are either pulmonary infarctions possibly neoplastic disease. There are no associated pleural effusions. No rib destruction. Some mild i nfiltrate is noted in both upper lobes as well as patchy infiltrate throughout the remainder of the lung montero. There are no significant focal findings in the trachea and mainstem bronchi. MEDIASTINUM: There is no hilar nor mediastinal adenopathy. Visualized thyroid unremarkable. CARDIAC: Heart size is normal. There is no pericardial effusion.There is mild shift of the interventricular septum. Diameter ascending thoracic aorta is upper normal. There is no aortic dissection. Left vertebral artery is noted to originate is separate vessel off the aortic arch. There is no pericardial effusion. OSSEOUS: There is enhancing density in the spinal canal at approximately T5 level which may be metastatic versus other pathology such as meningioma.There is degenerative anterolisthesis of L4 relative to L5, approximately 4 millimeters.. ABDOMEN: There is no ascites. LIVER: There is pneumobilia again noted in this patient with a CBD stent in place. Amount of pneumobilia is approximately equal to previous and predominantly left hepatic lobe. There are no obvious metastatic appearing lesions in the liver. GALLBLADDER/BILIARY: The gallbladder is again noted be surgically absent. PANCREAS: CBD stent again noted. Pancreatic duct dilatation is again noted. Parenchymal calcifications are again noted towards the pancreatic tail as well as in the pancreatic body and head. Mild increased density around the common hepatic artery which isunchanged as well as around the celiac. There is no increasing abnormal tissue in this region. SPLEEN: Spleen is not enlarged. There are no intrasplenic lesions. Splenic and portal veins are patent. ADRENALS: Thickening of the left adrenal gland both limbs again noted. Right adrenal gland is unchanged. KIDNEYS: There now appears to be an element of hydronephrosis on the right side which was not previously evident. This is related to some tissue encircling the ureteropelvic junction area. Probably metastatic. No cysts evident. ABDOMINAL AORTA: Calcified but not enlarged. No increasing para-aortic adenopathy. LYMPH NODES: No increasing adenopathy. ABDOMINAL WALL/GI: No evidence of significant anterior abdominal wall hernia. No bowel obstruction. PELVIS: LYMPH NODES: There is no intrapelvic nor inguinal adenopathy. GI: No evidence of appendicitis.Sigmoid diverticulosis without evidence of obvious acute diverticulitis. URINARY BLADDER: No calculi nor masses evident REPRODUCTIVE: Age-appropriate OSSEOUS: Degenerative anterolisthesis of L4 upon L5. No lytic osseous lesions of lumbar spine IMPRESSION: 1. There are now extensive bilateral pulmonary emboli involving all lobes of both lungs and there are also infiltrates in both lung bases which may be pulmonary infarctions. Other consideration for EB neoplastic or infectious et iology. 1. Compared to 05/14/2020 there is again noted CBD stent with pneumobilia and least stable appearance of the pancreatic head and uncinate process region. Pancreatic duct remain significantly dilated. There is no peripancreatic fluid collection. 2. No new metastatic lesions in the liver. Adrenals appear unchanged but there is now unilateral right-sided hydronephrosis evident. This appears to have its origin at the level of the ureteropelvic junction. 3. Sigmoid diverticulosis. No obvious acute diverticulitis. No appendicitis no bowel obstruction. 4. Enhancing abnormal finding in the size thoracic spinal column approximately T5 level may be metastatic versus meningioma versus other pathology. Unilateral right-sided hydronephrosis. Discussed the findings with the patient. Will obtain EKG and labs. Will evaluate for potential right-sided heart strain. Patient does appear hemodynamically stable without acute abnormality on exam. Will consult with hospitalist regarding admission. EKG was reviewed by Dr. Perez. Please see his note. No evidence of right-sided heart strain. [place] [facility] [place] advised 2 to 3 days of heparin followed by transition to DOAC. He advised echo to be completed tomorrow. Labs reviewed. No significant abnormality. Troponin within normal limits. Consulted with Dr. Mims who agrees to admission. HPI General Mode of arrival: ambulatory . Date/Time Provider Initiated Documentation: 08/18/20 18:43 . Limitations to Documentation: no limitations . Information obtained by: patient, family (), RN notes reviewed and old records reviewed . History of Present Illness 70 year old F presents to the emergency department with the chief complaint of shortness of breath, CT shows bilateral pulmonary emboli, described as mild, Quality is described as other (SOB), Patient reports no radiation. Patient started experiencing this week(s) (1+) and it has been intermittent. Immobilization improves symptom(s), Movement worsens symptoms . Patient notes cough and shortness of breath; denies chest pain, fever/chills, loss of appetite, nausea/vomiting, rash and weakness. Patient did receive the following treatments prior to arrival, none Related Data Home Medications Medication Instructions Recorded Confirmed loratadine 10 mg PO QAM 10/23/19 08/18/20 acetaminophen 650 mg PO QHS 08/18/20 08/18/20 cyanocobalamin (vitamin B-12) 1,000 mcg PO DAILY 08/18/20 08/18/20 [Vitamin B-12] famotidine 20 mg PO BID PRN 08/18/20 08/18/20 [id number] [Creon] See Rx Instructions .ROUTE .COMPLEX 08/18/20 08/18/20 mirtazapine 15 mg PO QHS 08/18/20 08/18/20 ondansetron 8 mg TRANSLINGUAL Q8H PRN PRN 08/18/20 08/18/20 Allergies Allergy/AdvReac Type Severity Reaction Status Date / Time acetaminophen AdvReac Severe vomiting Verified 08/18/20 18:54 [From Darvocet-N] and nausea propoxyphene AdvReac Severe vomiting Verified 08/18/20 18:54 [From Darvocet-N] and nausea General OBDULIA: 2 Review of Systems Constitutional Constitutional: Reports as per HPI, Denies chills, Denies fever(s), Denies headache(s), Denies lethargy and Denies poor appetite Eyes Eyes: Denies change in vision ENT Ears, Nose, Mouth, and Throat: Denies dizziness and Denies headache(s) Cardiovascular Cardiovascular: Reports as per HPI, Reports dyspnea and Reports dyspnea on exertion Respiratory Respiratory: Reports as per HPI, Denies chest congestion, Reports cough (nonproductive), Denies pain on inspiration, Denies pain with cough, Reports dyspnea, Reports dyspnea on exertion and Denies wheezing Gastrointestinal Gastrointestinal: Reports as per HPI, Denies abdominal pain, Denies diarrhea, Denies nausea and Denies vomiting Musculoskeletal Musculoskeletal: Reports as per HPI and Denies back pain Integumentary/Breasts Skin/Breast: Reports as per HPI and Denies rash Neurologic Neurologic: Reports as per HPI, Denies dizziness and Denies headache(s) Allergic/Immunologic Allergic/Immunologic: Denies wheezing PFSH Medical History Arthritis Surgical History S/P ACL repair left Family History Mother Breast cancer Social History Smoking/Tobacco Use Status: Former Tobacco Use Smoking risk assessment performed?: Yes Alcohol Intake: current Alcohol Intake frequency: holidays/special occasions only Alcohol type: wine and other Substance use type: does not use Current gender identity: female Do you feel safe at home: Yes Do you feel safe in your relationship?: Yes Exam Const General: cooperative, healthy appearing, comfortable, no acute distress and well developed Nutritional Appearance: average body habitus and well nourished Orientation: alert, awake and oriented x3 HENMT Head: normal to inspection Ears: hearing grossly normal bilaterally Mouth: moist mucous membranes Chest Chest: normal inspection of the chest, normal palpation of entire chest wall and no crepitus Resp Effort & Inspection: normal respiratory effort, able to speak in complete sentences and no respiratory distress Auscultation: clear to auscultation bilaterally, no rales, no rhonchi and no wheezes Cardio Rate: regular rate Rhythm: regular rhythm Heart Sounds: S1 normal and S2 normal GI Inspection: normal to inspection, no edema and non-distended Palpation: soft, no hepatosplenomegaly, not firm, no guarding, not rigid and nontender Auscultation: normal bowel sounds Skin General skin exam: no rashes or lesions noted Trauma: no lacerations or abrasions Neuro General: patient alert, patient awake and patient oriented x3 Cognition: normal cognition Speech: speech normal Gait: normal gait Extrem General: normal to inspection, capillary refill normal, no pedal edema, no calf tenderness and normal gait Psych Appearance: grossly normal and well kempt Mental Status: mental status grossly normal Speech and Movement: speech and movement normal
--- NOTE | 2020-08-18 19:00 | RT.EKG_ITS ---
APPROVED REPORT Exam: Resting ECG Patient Location: E HR:96 bpm ECG Measurements Heart Rate 96 AXIS TN 161 P 0 QRSd 98 QRS -4 QT 328 T 24 QTc 415 Conclusion Sinus rhythm...normal P axis, V-rate 60- 99
[2020-08-18 20:00] LABS: Abs Immature Grans 0.01 10^3/uL (0.0-0.06); Absolute Basophil Count 0.01 10^3/uL (0.0-0.2); Absolute Eosinophil Count 0.23 10^3/uL (0.0-0.7); Absolute Lymphocyte Count 0.43 10^3/uL (1.2-3.4); Absolute Neutrophil Count 4.35 10^3/uL (1.2-6.7); Basophils % 0.2; Eosinophils % 4.5; HCT 33.6 % (36.0-46.0); HGB 11.2 g/dL (11.2-15.7); Immature Grans % 0.2; Lymphocytes % 8.4; MCH 31.3 pg (27.0-33.0); MCHC 33.3 % (32.0-36.0); MCV 93.9 fL (80-95); MPV 10.1 fL (8.0-11.0); Monocytes % 1.9; Neutrophils % 84.8; Nucleated RBC 0 %; Platelet Count 153 10^3/uL (130-400); RBC 3.58 10^6/uL (3.93-5.22); RDW-SD 45.1 fL; WBC 5.13 10^3/uL (4.4-10.8)
--- NOTE | 2020-08-18 20:01 | W.PM.HP.N ---
Date of service: 08/18/20 Time of Service: 20:01 Assessment and Plan Assessment and plan (1) Pulmonary emboli: Status: Chronic Assessment and plan: PE without signs strain. Will begin 48 hours IV heparin (per [facility] [place] advice) then transition to DOAC. Reviewed ADs. requests Full Code. History of Present Illness History of Present Illness Chief Complaint: SOB Narrative: 70 female with metastatic pancreatic cancer. Had routine follow up staging CT today which showed extensive bilateral PEs. Patient was asked by her oncologist to report to ER here for treatment, advising starting unfractionated heparin. Patient does endorse SOB over past week or two, but had been attributing this to ongoing chemotherapy. Sadie CP, LE swelling or calf pain. Review of Systems All systems reviewed & are unremarkable except as noted in HPI and below PFSH Medical History Arthritis Surgical History S/P ACL repair left Family History Mother Breast cancer Social History Smoking/Tobacco Use Status: Former Tobacco Use Smoking risk assessment performed?: Yes Alcohol Intake: current Alcohol Intake frequency: holidays/special occasions only Alcohol type: wine and other Substance use type: does not use Current gender identity: female Do you feel safe at home: Yes Do you feel safe in your relationship?: Yes Meds Allergies and Home Medications Allergies Allergy/AdvReac Type Severity Reaction Status Date / Time acetaminophen AdvReac Severe vomiting Verified 08/18/20 18:54 [From Darvocet-N] and nausea propoxyphene AdvReac Severe vomiting Verified 08/18/20 18:54 [From Darvocet-N] and nausea Home Medications Medication Instructions Recorded Confirmed Type loratadine 10 mg PO QAM 10/23/19 08/18/20 History acetaminophen 650 mg PO QHS 08/18/20 08/18/20 History cyanocobalamin (vitamin B-12) 1,000 mcg PO DAILY 08/18/20 08/18/20 History [Vitamin B-12] famotidine 20 mg PO BID PRN 08/18/20 08/18/20 History [id number] [Creon] See Rx Instructions .ROUTE .COMPLEX 08/18/20 08/18/20 History mirtazapine 15 mg PO QHS 08/18/20 08/18/20 History ondansetron 8 mg TRANSLINGUAL Q8H PRN PRN 08/18/20 08/18/20 History Exam Narrative Exam Narrative: 144/80, 110, 36.8, 20, 97% RA. HEENT atraumatic; neck supple, JVP less than 4 cm; lungs clear; heart tachy/regular, no RV heave; abdomen soft and NT; extremities w/o edema, calves NT, Sona's negative; neuro Ox3, nonfocal Results Labs Result diagrams: 08/18/20 19:42 08/18/20 19:42 Labs: Laboratory Results - last 24 hr 08/18/20 19:42 WBC 5.13 RBC 3.58 L Hgb 11.2 Hct 33.6 L MCV 93.9 MCH 31.3 MCHC 33.3 RDW 13.0 Plt Count 153 MPV 10.1 Immature Gran % 0.2 Neutrophils % 84.8 Lymphocytes % 8.4 Monocytes % 1.9 Eosinophils % 4.5 Basophils % 0.2 Nucleated RBC % 0 Absolute Neutrophils 4.35 Absolute Lymphocytes 0.43 L Absolute Monocytes 0.10 Absolute Eosinophils 0.23 Absolute Basophils 0.01 Last Vital Signs Temp 36.8 C 08/18/20 18:48 Pulse 110 H 08/18/20 18:48 Resp 20 08/18/20 18:48 BP 144/80 H 08/18/20 18:48 Pulse Ox 97 08/18/20 18:48 COVID-19 Screening Have you, or household traveled for leisure in last 14 days?: No Had IN PERSON contact w/suspected or confirmed C-19 person: No
[2020-08-18 20:11] LABS: Source Nasal/Nares
[2020-08-18 20:13] LABS: INR 1.1 (0.9-1.1); PTT Activated 26.3 sec (21.0-27.5); Prothrombin Time 10.8 sec (9.3-11.0)
[2020-08-18 20:24] LABS: ALT 35 U/L (14-59); AST 27 U/L (15-37); Albumin 3.4 g/dL (3.4-5.0); Alkaline Phosphatase 154 U/L (46-116); BUN 17 mg/dL (7-18); Bilirubin, Total 0.9 mg/dL (0.2-1.0); CREATININE 0.7 mg/dL (0.55-1.02); Calcium 8.8 mg/dL (8.5-10.1); Chloride 101 mmol/L (98-107); Glucose 132 mg/dL (74-106); Magnesium 2.2 mg/dL (1.8-2.4); Potassium 4.1 mmol/L (3.5-5.1); Sodium 138 mmol/L (136-145); Total Protein 7.5 g/dL (6.4-8.2)
[2020-08-18 20:35] LABS: Troponin I < 0.05 ng/mL (<0.06)
[2020-08-18] MEDS: Mirtazapine 15 MG TAB PO (22:33)
[2020-08-18] MEDS: Acetaminophen 325 MG TAB 650 MG PO (22:33)
[2020-08-18 23:20] LABS: COVID-19 PCR Negative (Negative)
[2020-08-19 01:30] LABS: PTT Activated 86.6 sec (21.0-27.5)
[2020-08-19 07:45] VITALS: BP 117/68; PULSE 88; RESP 18; TEMP 36.8; O2SAT 93
[2020-08-19] MEDS: Loratidine 10 MG TAB PO (08:41)
[2020-08-19] MEDS: Cyanocobalamin 500 MCG TAB 1000 MCG PO (08:41)
--- NOTE | 2020-08-19 09:08 | W.PM.PROGNOT ---
Date of Service Date of service: 08/19/20 Time of Service: 09:08 Assessment and Plan Assessment and plan (1) Pulmonary emboli: Status: Chronic Assessment and plan: PE without signs strain. continue 48 hours IV heparin (per [facility] advice) then transition to DOAC tomorrow. (2) Discharge planning issues: Status: Acute Assessment and plan: case management following patient to be discharged to home tomorrow with no services. Discussed with Dr Arreola Subjective Subjective Patient reports: no new complaints, tolerating liquids well, tolerating a regular diet and afebrile; denies shortness of breath Interval history since last seen: patient remains asymptomatic Exam Const General: cooperative, healthy appearing, comfortable, no acute distress and well developed Nutritional Appearance: average body habitus and well nourished Orientation: alert, awake and oriented x3 HENMT Head: normal to inspection Ears: hearing grossly normal bilaterally Mouth: moist mucous membranes Chest Chest: normal inspection of the chest Resp Effort & Inspection: normal respiratory effort, able to speak in complete sentences and no respiratory distress Auscultation: clear to auscultation bilaterally, no rales, no rhonchi and no wheezes Cardio Rate: regular rate Rhythm: regular rhythm Heart Sounds: S1 normal and S2 normal GI Inspection: normal to inspection, no edema and non-distended Palpation: soft, no hepatosplenomegaly, not firm, no guarding, not rigid and nontender Auscultation: normal bowel sounds Skin General skin exam: no rashes or lesions noted Trauma: no lacerations or abrasions Neuro General: patient alert, patient awake and patient oriented x3 Cognition: normal cognition Speech: speech normal Gait: normal gait Extrem General: normal to inspection, capillary refill normal, no pedal edema, no calf tenderness and normal gait Psych Appearance: grossly normal and well kempt Mental Status: mental status grossly normal Speech and Movement: speech and movement normal Objective Last Vital Signs Temp 36.8 C 08/19/20 07:45 Pulse 88 08/19/20 07:45 Resp 18 08/19/20 07:45 BP 117/68 08/19/20 07:45 Pulse Ox 93 08/19/20 07:45 Laboratory Results - last 24 hr 08/18/20 08/18/20 08/18/20 19:42 19:42 19:42 WBC 5.13 RBC 3.58 L Hgb 11.2 Hct 33.6 L MCV 93.9 MCH 31.3 MCHC 33.3 RDW 13.0 Plt Count 153 MPV 10.1 Immature Gran % 0.2 Neutrophils % 84.8 Lymphocytes % 8.4 Monocytes % 1.9 Eosinophils % 4.5 Basophils % 0.2 Nucleated RBC % 0 Absolute Neutrophils 4.35 Absolute Lymphocytes 0.43 L Absolute Monocytes 0.10 Absolute Eosinophils 0.23 Absolute Basophils 0.01 PT 10.8 INR 1.1 APTT 26.3 Sodium 138 Potassium 4.1 Chloride 101 Carbon Dioxide 28.0 Anion Gap 9.0 BUN 17 Creatinine 0.7 Estimated GFR/1.73 m2 >= 60.00 Glucose 132 H Calcium 8.8 Magnesium 2.2 Total Bilirubin 0.9 AST 27 ALT 35 Alkaline Phosphatase 154 H Troponin I < 0.05 Total Protein 7.5 Albumin 3.4 COVID-19 Source SARS-CoV-2 (PCR) 08/18/20 08/18/20 08/19/20 20:00 22:06 01:07 WBC RBC Hgb Hct MCV MCH MCHC RDW Plt Count MPV Immature Gran % Neutrophils % Lymphocytes % Monocytes % Eosinophils % Basophils % Nucleated RBC % Absolute Neutrophils Absolute Lymphocytes Absolute Monocytes Absolute Eosinophils Absolute Basophils PT INR APTT 86.6 H* D Sodium Potassium Chloride Carbon Dioxide Anion Gap BUN Creatinine Estimated GFR/1.73 m2 Glucose Calcium Magnesium Total Bilirubin AST ALT Alkaline Phosphatase Troponin I Cancelled Total Protein Albumin COVID-19 Source Nasal/nares SARS-CoV-2 (PCR) Negative
--- NOTE | 2020-08-19 13:15 | INITIAL_ITS ---
- If Service Date Differs Date of service: 08/19/20 Time of Service: 13:15 Care Management Initial Assess REASON FOR HOSPITALIZATION:: PE PAST MEDICAL HISTORY/PAST SURGICAL HISTORY:: Arthritis, S/P ACL repair PREVIOUS FUNCTIONAL STATUS/SOCIAL/FAMILY SUPPORTS:: Analilia resides in [place] with her , Armando. She is independent at baseline in the community. ADVANCE DIRECTIVES:: Armando as agent, Anuja Shaw as alternate. Has patient been provided with info about the portal/API?: Yes Did the patient sign up for the portal?: Yes (Previously ) CODE STATUS:: Full Code INSURANCE COVERAGE / FINANCIAL ISSUES:: Medicare. / CURRENT HOME/COMMUNITY SERVICES/EQUIPMENT:: None, currently. PRIMARY CARE PHYSICIAN:: Nubia Santana POTENTIAL DISCHARGE NEEDS:: New prescriptions, follow up appointments. PATIENT/FAMILY EDUCATION NEEDS:: Review discharge instructions, discuss Ask Me Three. ANTICIPATED BARRIERS TO DISCHARGE:: None identified. TRANSPORTATION:: Via private vehicle will her . PLAN:: Analilia will return home when ready per MD. She will follow up with her PCP and plan of care as prescribed. Anticipate new prescription of CHON Gentile to connect with Pharmacy to inquire to cost. Analilia will transport via private vehicle with her , Armando.
--- NOTE | 2020-08-19 14:37 | CHAPLAIN ---
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 Analilia was diagnosed with pancreatic cancer. She has undergone chemo and radiation and is at stage three now. She says she does not have any regrets and is not wasting time being bitter or restful. Her adult children and a granddaughter are arriving on September 05 to be with her and her for a while.
--- NOTE | 2020-08-19 15:31 | PHA.REVIEW ---
Pharmacy Admission Review - Admission Clinical Review (Last Reviewed 08/18/20 @ 23:52 by GALO Hernandez) Discharge planning issues (Acute) acetaminophen [From Darvocet-N] Adverse Reaction (Severe, Verified 08/18/20 18:54) vomiting and nausea propoxyphene [From Darvocet-N] Adverse Reaction (Severe, Verified 08/18/20 18:54) vomiting and nausea Height 5 ft 5 in Weight 71.214 kg - Renal Dosing Renal Dosing: BUN 17 mg/dL (7-18) 08/18/20 19:42 Creatinine 0.7 mg/dL (0.55-1.02) 08/18/20 19:42 Medications needing adjustments: Reviewed (Crcl ~57.19 mL/min current meds okay) - Anticoagulation Anticoagulation: Hgb 11.2 g/dL (11.2-15.7) 08/18/20 19:42 Hct 33.6 % (36.0-46.0) L 08/18/20 19:42 Plt Count 153 10^3/uL (130-400) 08/18/20 19:42 INR 1.1 (0.9-1.1) 08/18/20 19:42 Creatinine 0.7 mg/dL (0.55-1.02) 08/18/20 19:42 Medications: Heparin Therapeutic Anticoagulation: Reviewed Medications: Heparin - Opiate Usage Evaluate Pain Scale/Pains Meds: N/A - Relevant Labs Sodium 138 mmol/L (136-145) 08/18/20 19:42 Potassium 4.1 mmol/L (3.5-5.1) 08/18/20 19:42 Chloride 101 mmol/L (98-107) 08/18/20 19:42 Magnesium 2.2 mg/dL (1.8-2.4) 08/18/20 19:42 Electrolytes, C-Reactive P, ESR: Reviewed - DM Control DM Control: Glucose 132 mg/dL (74-106) H 08/18/20 19:42 Insulin Dosing: N/A (BG mildly elevated so far this admission) - Heart Failure/OR Heart Failure/OR: Troponin I Cancelled 08/18/20 22:06 EF%, FRANKIE's, B-Blockers, Diuretics: N/A - BP Control BP Control: Blood Pressure 117/68 If elevated: N/A - Qtc Review If Elevated: N/A (QTc 415 on admission) - IV to PO Switch IV Medications: Reviewed - Home Meds Home Med List reviewed: Reviewed Relevent Home Meds Not ordered & why?: All home meds are ordered. - Current meds Current Medication Order Review: Reviewed - Comments Comments/Follow Ups: Watch VS, BG, labs and for med changes.
[2020-08-19 15:42] VITALS: BP 116/72; PULSE 93; RESP 18; TEMP 36.9; O2SAT 96
[2020-08-19] MEDS: Famotidine 20 MG TAB PO (17:00)
[2020-08-19] MEDS: Acetaminophen 325 MG TAB 650 MG PO (21:22)
[2020-08-19] MEDS: Mirtazapine 15 MG TAB PO (21:23)
[2020-08-20 00:11] VITALS: BP 112/64; PULSE 90; RESP 17; TEMP 37.3; O2SAT 93
[2020-08-20 07:29] LABS: HGB 10.8 g/dL (11.2-15.7); MCH 31.2 pg (27.0-33.0); MCHC 32.7 % (32.0-36.0); MCV 95.4 fL (80-95); MPV 9.8 fL (8.0-11.0); Platelet Count 147 10^3/uL (130-400); RBC 3.46 10^6/uL (3.93-5.22); RDW 12.8 % (11.7-14.6); RDW-SD 45.1 fL; WBC 3.18 10^3/uL (4.4-10.8)
[2020-08-20 07:46] LABS: PTT Activated 50.6 sec (21.0-27.5)
[2020-08-20 08:07] VITALS: BP 109/67; PULSE 89; RESP 18; TEMP 37.1; O2SAT 95
[2020-08-20] MEDS: Cyanocobalamin 500 MCG TAB 1000 MCG PO (08:42)
[2020-08-20] MEDS: Loratidine 10 MG TAB PO (08:42)
--- NOTE | 2020-08-20 10:45 | CMDISCH_ITS ---
LACE Index Scoring Tool - Questions: Length of Stay (in days): 2 Acuity (Admit via E.D.?): Yes E.D. Visits: 2 - Answers: Total Score: 7 Risk of Readmission: Low Risk Care Management Discharge Reason for Hospitalization: PE Discharge Plan: Analilia will return home when ready per MD. She will follow up with her PCP and plan of care as prescribed. She will have a new prescription of Eliquis, CHON faxed Eliquis coupon card to [facility] to off-set cost. Analilia will transport via private vehicle with her , Armando. Patient/Family Education Needs: Review discharge instructions, discuss Ask Me Three.
--- NOTE | 2020-08-20 10:54 | DSE_ITS ---
Date of service: 08/20/20 Time of Service: 10:55 DS: Diagnosis Discharge Diagnosis (1) Pulmonary emboli: Status: Chronic Discharge Plan Disposition Patient Disposition: HOME Condition: Stable Discharge Details Reason For Visit: PE Admit Date/Time: 08/18/20 20:26 Admit Provider: Binh Mims Attending Provider: Binh Mims Primary Care Provider: Nubia Santana V Hospital Course Hospital Course: This is a very pleasant 70 year old female with history of pancreatic cancer who was having a routine staging CT scan that showed bilateral pulmonary embolism. she was asymptomatic and oxygenating well on room air. She was referred to the hospital for 48 hours of unfractionated heparin prior to initiating a DOAC. she was admitted to hospitalist services where she remained medically stable with no c/o. she was eating and drinking and oxygenating well on room air. she has completed her heparin infusion and is transitioned to eliquis. she is discharged to home with no services and will follow up with oncology as scheduled. discussed with Dr Dailey. Home Meds and New Rx's Prescriptions: New Eliquis DVT-PE Treat 30D Start 5 mg (74 tabs) tablets,dose pack See Rx Instructions .ROUTE .COMPLEX Qty: 74 RF: 0 Continued loratadine 10 mg Tablet 10 mg PO QAM RF: 0 ondansetron 8 mg tablet,disintegrating 8 mg translingual Q8H PRN PRNRF: 0 famotidine 20 mg tablet 20 mg PO BID PRNRF: 0 mirtazapine 15 mg tablet 15 mg PO QHS RF: 0 Creon 24,000-76,000 -120,000 unit capsule,delayed release(DR/EC) See Rx Instructions .ROUTE .COMPLEX RF: 0 cyanocobalamin (vitamin B-12) [Vitamin B-12] 1,000 mcg Tablet 1,000 mcg PO DAILY RF: 0 acetaminophen 650 mg Tablet 650 mg PO QHS RF: 0 Discharge Instructions Instructions: Pulmonary Embolism (DC) Additional Instructions: take all medication as prescribed keep all scheduled outpatient follow ups. Stand Alone Forms: Nursing Discharge Form Referrals: Nubia Santana MD [Primary Care Provider] - Activity:: Activity as Tolerated Equipment/Supplies:: No Equipment Needed Diet:: As Tolerated Discharge Orders Discharge Orders: Discharge Order (Routine); Ordered 08/20/20 Ordered By: Carol Walker DS: Summary Time Spent with Patient providing and/or coordinating discharge services: Less than 30 minutes Status at Discharge Functional status at discharge: independent ambulation Overall status at discharge: patient is back to baseline Mental Status: mental status grossly normal Speech and Movement: speech and movement normal Mood: congruent mood Affect: normal affect Exam Const General: cooperative, healthy appearing, comfortable, no acute distress and well developed Nutritional Appearance: average body habitus and well nourished Orientation: alert, awake and oriented x3 HENMT Head: normal to inspection Ears: hearing grossly normal bilaterally Mouth: moist mucous membranes Chest Chest: normal inspection of the chest Resp Effort & Inspection: normal respiratory effort, able to speak in complete sent ences and no respiratory distress Auscultation: clear to auscultation bilaterally, no rales, no rhonchi and no wheezes Cardio Rate: regular rate Rhythm: regular rhythm Heart Sounds: S1 normal and S2 normal GI Inspection: normal to inspection, no edema and non-distended Palpation: soft, no hepatosplenomegaly, not firm, no guarding, not rigid and nontender Auscultation: normal bowel sounds Skin General skin exam: no rashes or lesions noted Trauma: no lacerations or abrasions Neuro General: patient alert, patient awake and patient oriented x3 Cognition: normal cognition Speech: speech normal Gait: normal gait Extrem General: normal to inspection, capillary refill normal, no pedal edema, no calf tenderness and normal gait Psych Appearance: grossly normal and well kempt Mental Status: mental status grossly normal Speech and Movement: speech and movement normal Mood: congruent mood Affect: normal affect DS: Data Vitals/I&O Vitals and I&O: Vital Signs Temperature 37.1 C 08/20/20 08:07 Temperature Source Tympanic 08/20/20 08:07 Pulse 89 08/20/20 08:07 Pulse Rhythm Regular 08/20/20 05:14 Respiratory Rate 18 08/20/20 08:07 Respiratory Effort Non-Labored 08/20/20 05:14 Respiratory Depth Normal 08/20/20 05:14 Respiratory Pattern Normal 08/20/20 05:14 Blood Pressure 109/67 08/20/20 08:07 Blood Pressure Mean 65 08/18/20 21:31 Blood Pressure Position Sitting 08/18/20 18:48 Pulse Oximetry 95 08/20/20 08:07 Oxygen Delivery Method Room Air 08/20/20 08:07 Oxygen Flow Rate 0 08/20/20 08:07 Pain Level 0 08/20/20 00:11 Comment 08/20/20 08:07 Intake & Output 08/19/20 08/19/20 08/20/20 11:59 23:59 11:59 Intake Total 1044.133 / 1665.216 621.083 / 1665.216 731.083 / 731.083 Balance 1044.133 / 1665.216 621.083 / 1665.216 731.083 / 731.083 Intake: IV 64.133 / 195.216 131.083 / 195.216 131.083 / 131.083 Oral 980 / 1470 490 / 1470 600 / 600 Other: Urine Color Yellow Urine Appearance Clear Clear Clear Voiding Methods Toilet Data Completed and Pending Labs on day of discharge: Labs from last 24 hours 08/20/20 08/20/20 06:24 06:24 WBC 3.18 L RBC 3.46 L Hgb 10.8 L Hct 33.0 L MCV 95.4 H MCH 31.2 MCHC 32.7 RDW 12.8 Plt Count 147 MPV 9.8 APTT 50.6 H PFSH Medical History Arthritis Surgical History S/P ACL repair left Family History Mother Breast cancer Social History Smoking/Tobacco Use Status: Former Tobacco Use Smoking risk assessment performed?: Yes Alcohol Intake: current Alcohol Intake frequency: holidays/special occasions only Alcohol type: wine and other Substance use type: does not use Current gender identity: female Do you feel safe at home: Yes Do you feel safe in your relationship?: Yes
[2020-08-20 15:45] VITALS: BP 120/79; PULSE 102; RESP 18; TEMP 36.7; O2SAT 96
[2020-08-20] MEDS: Apixaban 5 MG TAB 10 MG PO (17:49)
[2020-08-20] MEDS: Heparin 500 UNITS/5 ML SYRINGE IVP (17:49)
== END 2020-08-20 18:00 | disposition home or self-care (01) | DRG 176 ==
LOC: ER 20:45 → MS 21:55
PROVIDERS: Nurse Practitioner Acute Care; Admitting Provider General Practice; Emergency Provider Physician Assistant; PCP Family Medicine; Visit Provider General Practice
DX: I26.99 Other pulmonary embolism without acute cor pulmonale (principal); C25.9 Malignant neoplasm of pancreas, unspecified; C78.02 Secondary malignant neoplasm of left lung; C78.01 Secondary malignant neoplasm of right lung; Z20.822 Contact with and (suspected) exposure to COVID-19
CPT/HCPCS: 36415; 36591; 74177; 80053; 85027; 87635; 93005; 96365; 96376; 96523; 99222; 99232; 99238; 99285; 71260; 83735; 84484; 85025; 85610; 85730; 93010; Q9967

== ENCOUNTER 2020-09-26 03:51 | Outpatient (RCR) | payer MEDICARE, BC, SELFPAY ==
[2020-09-12] MEDS: Normal Saline Flush 10 ML SYR IVP (10:35)
[2020-09-12 10:42] LABS: Abs Immature Grans 0.02 10^3/uL (0.0-0.06); Absolute Basophil Count 0.01 10^3/uL (0.0-0.2); Absolute Eosinophil Count 0.08 10^3/uL (0.0-0.7); Absolute Lymphocyte Count 0.57 10^3/uL (1.2-3.4); Absolute Monocyte Count 0.54 10^3/uL (0.1-0.8); Absolute Neutrophil Count 3.28 10^3/uL (1.2-6.7); Basophils % 0.2; Eosinophils % 1.8; HCT 28.9 % (36.0-46.0); HGB 9.2 g/dL (11.2-15.7); Immature Grans % 0.4; Lymphocytes % 12.7; MCH 30.6 pg (27.0-33.0); MCHC 31.8 % (32.0-36.0); MPV 9.5 fL (8.0-11.0); Neutrophils % 72.9; Nucleated RBC 0 %; Platelet Count 209 10^3/uL (130-400); RBC 3.01 10^6/uL (3.93-5.22); RDW 14.1 % (11.7-14.6); RDW-SD 48.7 fL
[2020-09-12 10:55] LABS: ALT 29 U/L (14-59); AST 26 U/L (15-37); Albumin 3.2 g/dL (3.4-5.0); Alkaline Phosphatase 135 U/L (46-116); Anion Gap 7.6 mmol/L (3-11); BUN 15 mg/dL (7-18); Bilirubin, Total 0.5 mg/dL (0.2-1.0); CO2 29.4 mmol/L (21.0-32.0); CREATININE 0.6 mg/dL (0.55-1.02); Calcium 8.6 mg/dL (8.5-10.1); Chloride 105 mmol/L (98-107); Glucose 117 mg/dL (74-106); Potassium 4.1 mmol/L (3.5-5.1); Sodium 142 mmol/L (136-145); Total Protein 6.7 g/dL (6.4-8.2)
[2020-09-15 13:45] LABS: CA 19-9 16794 U/mL (<35)
[2020-09-26 08:05] LABS: Abs Immature Grans 0.02 10^3/uL (0.0-0.06); Absolute Basophil Count 0.03 10^3/uL (0.0-0.2); Absolute Eosinophil Count 0.13 10^3/uL (0.0-0.7); Absolute Lymphocyte Count 0.61 10^3/uL (1.2-3.4); Absolute Monocyte Count 0.64 10^3/uL (0.1-0.8); Absolute Neutrophil Count 4.44 10^3/uL (1.2-6.7); Basophils % 0.5; Eosinophils % 2.2; HCT 29.5 % (36.0-46.0); HGB 9.5 g/dL (11.2-15.7); Immature Grans % 0.3; Lymphocytes % 10.4; MCH 30.3 pg (27.0-33.0); MCHC 32.2 % (32.0-36.0); MCV 93.9 fL (80-95); MPV 9.6 fL (8.0-11.0); Monocytes % 10.9; Neutrophils % 75.7; Nucleated RBC 0 %; Platelet Count 239 10^3/uL (130-400); RBC 3.14 10^6/uL (3.93-5.22); RDW 15.5 % (11.7-14.6); RDW-SD 53.1 fL; WBC 5.87 10^3/uL (4.4-10.8)
[2020-09-26] MEDS: Normal Saline Flush 10 ML SYR IVP (08:13)
[2020-09-26 08:25] LABS: ALT 34 U/L (14-59); AST 28 U/L (15-37); Albumin 3.3 g/dL (3.4-5.0); Alkaline Phosphatase 142 U/L (46-116); Anion Gap 8.6 mmol/L (3-11); BUN 19 mg/dL (7-18); Bilirubin, Total 0.7 mg/dL (0.2-1.0); CO2 28.4 mmol/L (21.0-32.0); CREATININE 0.7 mg/dL (0.55-1.02); Calcium 8.7 mg/dL (8.5-10.1); Chloride 104 mmol/L (98-107); Glucose 124 mg/dL (74-106); Potassium 4.1 mmol/L (3.5-5.1); Sodium 141 mmol/L (136-145); Total Protein 6.8 g/dL (6.4-8.2)
[2020-09-29 13:35] LABS: CA 19-9 12156 U/mL (<35)
== END 2020-09-29 23:59 | disposition home or self-care (01) ==
LOC: INF 03:51
PROVIDERS: PCP Family Medicine; Visit Provider Internal Medicine Hematology & Oncology
DX: C25.9 Malignant neoplasm of pancreas, unspecified (principal); Z45.2 Encounter for adjustment and management of vascular access device; C78.00 Secondary malignant neoplasm of unspecified lung; K86.89 Other specified diseases of pancreas
CPT/HCPCS: 36591; 80053; 85025; 86301

== ENCOUNTER 2020-10-24 05:03 | Outpatient (RCR) | payer MEDICARE, BC, SELFPAY ==
[2020-10-10] MEDS: Normal Saline Flush 10 ML SYR IVP (11:58)
[2020-10-10 12:03] LABS: Abs Immature Grans 0.03 10^3/uL (0.0-0.06); Absolute Basophil Count 0.02 10^3/uL (0.0-0.2); Absolute Eosinophil Count 0.12 10^3/uL (0.0-0.7); Absolute Lymphocyte Count 0.77 10^3/uL (1.2-3.4); Absolute Monocyte Count 0.67 10^3/uL (0.1-0.8); Absolute Neutrophil Count 4.56 10^3/uL (1.2-6.7); Basophils % 0.3; Eosinophils % 1.9; HCT 27.6 % (36.0-46.0); HGB 8.6 g/dL (11.2-15.7); Immature Grans % 0.5; Lymphocytes % 12.5; MCH 29.8 pg (27.0-33.0); MCHC 31.2 % (32.0-36.0); MCV 95.5 fL (80-95); MPV 9.1 fL (8.0-11.0); Monocytes % 10.9; Neutrophils % 73.9; Nucleated RBC 0 %; Platelet Count 235 10^3/uL (130-400); RBC 2.89 10^6/uL (3.93-5.22); RDW 16.3 % (11.7-14.6); RDW-SD 57.5 fL; WBC 6.17 10^3/uL (4.4-10.8)
[2020-10-10 12:16] LABS: ALT 48 U/L (14-59); AST 37 U/L (15-37); Albumin 3.1 g/dL (3.4-5.0); Alkaline Phosphatase 190 U/L (46-116); Anion Gap 6.5 mmol/L (3-11); BUN 18 mg/dL (7-18); Bilirubin, Total 0.5 mg/dL (0.2-1.0); CO2 28.5 mmol/L (21.0-32.0); CREATININE 0.7 mg/dL (0.55-1.02); Calcium 8.3 mg/dL (8.5-10.1); Chloride 105 mmol/L (98-107); Glucose 103 mg/dL (74-106); Potassium 4.2 mmol/L (3.5-5.1); Sodium 140 mmol/L (136-145); Total Protein 6.6 g/dL (6.4-8.2)
[2020-10-13 15:02] LABS: CA 19-9 8176 U/mL (<35)
[2020-10-24] MEDS: Normal Saline Flush 10 ML SYR IVP (07:05)
[2020-10-24 07:09] LABS: Abs Immature Grans 0.02 10^3/uL (0.0-0.06); Absolute Basophil Count 0.02 10^3/uL (0.0-0.2); Absolute Eosinophil Count 0.18 10^3/uL (0.0-0.7); Absolute Lymphocyte Count 0.66 10^3/uL (1.2-3.4); Absolute Neutrophil Count 4.74 10^3/uL (1.2-6.7); Basophils % 0.3; Eosinophils % 2.9; HGB 8.3 g/dL (11.2-15.7); Immature Grans % 0.3; Lymphocytes % 10.6; MCH 29.2 pg (27.0-33.0); MCHC 30.7 % (32.0-36.0); MCV 95.1 fL (80-95); MPV 9.5 fL (8.0-11.0); Monocytes % 9.6; Neutrophils % 76.3; Nucleated RBC 0 %; Platelet Count 238 10^3/uL (130-400); RBC 2.84 10^6/uL (3.93-5.22); RDW 17.1 % (11.7-14.6); RDW-SD 59.7 fL; WBC 6.22 10^3/uL (4.4-10.8)
[2020-10-24 07:59] LABS: Diff Comment Diff Reviewed
[2020-10-24 08:04] LABS: ALT 34 U/L (14-59); AST 36 U/L (15-37); Albumin 3.1 g/dL (3.4-5.0); Alkaline Phosphatase 170 U/L (46-116); Anion Gap 9.4 mmol/L (3-11); BUN 16 mg/dL (7-18); Bilirubin, Total 0.6 mg/dL (0.2-1.0); CO2 26.6 mmol/L (21.0-32.0); CREATININE 0.7 mg/dL (0.55-1.02); Calcium 8.4 mg/dL (8.5-10.1); Chloride 107 mmol/L (98-107); Glucose 117 mg/dL (74-106); Potassium 3.8 mmol/L (3.5-5.1); Sodium 143 mmol/L (136-145); Total Protein 6.5 g/dL (6.4-8.2)
[2020-10-24 09:19] LABS: Iron 40 ug/dL (50-170)
[2020-10-24 09:47] LABS: Ferritin 400 ng/mL (8-252); Folate 10.3 ng/mL (8.6-20.0); Vitamin B12 905 pg/mL (193-986)
== END 2020-10-29 23:59 | disposition home or self-care (01) ==
LOC: INF 05:03
PROVIDERS: PCP Family Medicine; Visit Provider Internal Medicine Hematology & Oncology
DX: C25.9 Malignant neoplasm of pancreas, unspecified (principal); Z45.2 Encounter for adjustment and management of vascular access device; C78.00 Secondary malignant neoplasm of unspecified lung
CPT/HCPCS: 36591; 80053; 82607; 82728; 82746; 83540; 85025; 86301

== ENCOUNTER 2020-11-06 02:11 | Outpatient (CLI) | payer MEDICARE, BC, SELFPAY ==
--- NOTE | 2020-11-06 | DI.CT_ITS ---
Exam(s) CT CHEST/ABD/PEL W EXAM: CT CHEST/ABD/PEL W CLINICAL HISTORY: PANCREATIC CA METASTASIZED TO LUNG,C25.9,C78.00,ASSESS TREATMENT RESPONSE. TECHNIQUE: Imaging Protocol: Axial computed tomography images with coronal and sagittal reformatted images were created and reviewed CONTRAST MATERIAL: Intravenous: Omnipaque 350 Contrast volume:100 ml Oral: yes COMPARISON: CT CT CHEST/ABD/PEL W from 08/18/2020 FINDINGS: CHEST: Pulmonary arteries: Persistent bilateral lower lobe pulmonary emboli. No saddle embolus. Tracheobronchial tree: Patent where visualized. Mediastinum and Carla: No dominant adenopathy or fluid collection. Pulmonary parenchyma: Increased size of multiple bilateral small pulmonary nodules in both upper and lower lobes. Increased prominence of bilateral posterior basilar masses versus infarct. Suture mate rial right lower lobe. Pleura: Small right pleural effusion, increasing from the previous exam. no pneumothorax. Lymph nodes: Within normal limits. Aorta: Mild dilatation ascending aorta, stable. Atherosclerotic changes. No dissection.. Heart: Normal size. Bones: Degenerative changes with prominent endplate osteophytes. Bony projection within central aleksandra l, unchanged.. No lytic or blastic lesions. Impression fracture. Port overlying right pectoral muscle. ABDOMEN: Liver: Normal density. No measurable mass. Gallbladder and biliary tract: Cholecystectomy. Biliary stent and biliary air, unchanged. Dilated p ancreatic duct, unchanged. Pancreas: Atrophic. No mass is visible. Dilated pancreatic duct.. Spleen: Normal. Kidneys: Normal size, contour and axis. No radiodense stones. Stable right hydronephrosis. New mode rate left hydronephrosis. Increased soft tissue densities seen around both renal pelves, new on the left. There is now thrombus in the left renal vein. Question of a small amount of thrombus extendin g into the IVC. Decreased relative perfusion of the left kidney but no renal infarct visible. Adrenal glands: Stable bilateral prominence of the adrenal glands. Aorta: Abdominal portion non-dilated. Atherosclerotic changes. Lymph nodes: Within normal limits. Soft tissues: Unremarkable. Stomach and small bowel: Thickening of the wall of the duodenum adjacent to the region of the stent. No obstruction. PELVIS: Bladder: Symmetric distention, no gross wall thickening. Bowel: Diverticulosis. Increased quantity of stool. No obstruction or bowel wall thickening. Peritoneal cavity: Small amount fluid in the low pelvis. No collection or mesenteric inflammatory re sponse. Bones: stable degenerative changes. No lytic or blastic lesions visualized visible. Bones appear o steopenic. Reproductive organs: Within normal limits. IMPRESSION: 1. Increased size of posterior basilar densities. Increased pulmonary nodules in both upper and low er lobes, consistent with metastatic disease. Persistent pulmonary emboli. 2. No visible recurrence pancreatic mass or adenopathy. New left hydronephrosis. New left renal ve in thrombosis. RADIATION DOSE DELIVERED: 1,463.35mGy.cm Total DLP DATA REPOSITORY: All CT scans at this facility are submitted to the National Radiology Data Registry (NRDR) Dose Index Registry (DIR) with the [employer] (ACR). RADIATION OPTIMIZATION: All CT scans at this facility use at least one of these dose optimization te chniques: automated exposure control; mA and/or kV adjustment per patient size (includes targeted exa ms where dose is matched to clinical indication); or iterative reconstruction.
[2020-11-06] MEDS: Omnipaque 350 MG/ML 50 ML BTL PO (07:26)
[2020-11-06] MEDS: Breeza Beverage 473 ML BTL PO ×2 (07:28→07:29)
[2020-11-06] MEDS: Normal Saline - Diluent 50 ML VIAL IV (08:59)
[2020-11-06] MEDS: Omnipaque 350 MG/ML 100 ML BTL IV (08:59)
[2020-11-06] MEDS: Normal Saline Flush 10 ML SYR IVP (09:00)
== END 2020-11-06 02:31 ==
PROVIDERS: PCP Family Medicine; Visit Provider Internal Medicine Hematology & Oncology
DX: R91.8 Other nonspecific abnormal finding of lung field (principal); I26.99 Other pulmonary embolism without acute cor pulmonale; N13.30 Unspecified hydronephrosis; I82.3 Embolism and thrombosis of renal vein; C78.00 Secondary malignant neoplasm of unspecified lung; C25.9 Malignant neoplasm of pancreas, unspecified
CPT/HCPCS: 36591; 74177; 80053; 71260; 85025; 86301; J3490; Q9967

== ENCOUNTER 2020-11-12 02:21 | Outpatient (CLI) | payer MEDICARE, BC, SELFPAY ==
--- NOTE | 2020-11-12 | DI.DEXA_ITS ---
Exam(s) XR DEXA BONE DENSITY W/WO ALEK EXAM: XR DEXA BONE DENSITY W/WO ALEK CLINICAL HISTORY: SCREENING FOR OSTEOPOROSIS IN POSTMENOPAUSAL WOMAN,Z78.0 TECHNIQUE: Routine DEXA evaluation of the lumbar spine, hip, or forearm. COMPARISON: No exams were available for comparison FINDINGS: Performed on a Hologic unit. Lateral image: No compression fracture evident. Lumbar Spine total T-score: 2.5 Hip total T-score:0.1 Independent reading at the femoral neck yields a T-score of 0.4 Forearm total T-score: 0.0 IMPRESSION: Bone mineral density measures in the normal range. Fracture risk is low. Note: Any spine fracture indicates 5x risk for subsequent spine fracture and 2x risk for subsequent h ip fracture. World Health Organization criteria for BMD interpretation classify patients: Normal...... T- Score at or above -1.0 Osteopenic... T- Score between -1.0 and -2.5 Osteoporosis... T-Score at or below -2.5
== END 2020-11-12 02:41 ==
PROVIDERS: PCP Family Medicine; Visit Provider Family Medicine
DX: Z13.820 Encounter for screening for osteoporosis (principal); Z78.0 Asymptomatic menopausal state
CPT/HCPCS: 77080

== ENCOUNTER → 2020-11-20 09:46 | Outpatient (BNVA) | payer MEDICARE, BC, SELFPAY | PROVIDERS: PCP Family Medicine; Referring Provider Family Medicine; Visit Provider Urology | DX: C25.9 Malignant neoplasm of pancreas, unspecified (principal); N13.30 Unspecified hydronephrosis | CPT/HCPCS: 99204; 99215; G2212 ==

== ENCOUNTER 2020-11-21 11:00 | Outpatient (RCR) | payer MEDICARE, BC, SELFPAY ==
[2020-11-06 07:10] LABS: Abs Immature Grans 0.04 10^3/uL (0.0-0.06); Absolute Basophil Count 0.02 10^3/uL (0.0-0.2); Absolute Lymphocyte Count 0.55 10^3/uL (1.2-3.4); Absolute Monocyte Count 0.76 10^3/uL (0.1-0.8); Absolute Neutrophil Count 8.55 10^3/uL (1.2-6.7); Basophils % 0.2; HCT 26.8 % (36.0-46.0); HGB 8.3 g/dL (11.2-15.7); Immature Grans % 0.4; Lymphocytes % 5.5; MCV 93.7 fL (80-95); MPV 9.6 fL (8.0-11.0); Monocytes % 7.6; Neutrophils % 85.3; Nucleated RBC 0 %; Platelet Count 223 10^3/uL (130-400); RBC 2.86 10^6/uL (3.93-5.22); RDW 17.1 % (11.7-14.6); WBC 10.02 10^3/uL (4.4-10.8)
[2020-11-06 07:29] LABS: ALT 26 U/L (14-59); AST 22 U/L (15-37); Albumin 3.2 g/dL (3.4-5.0); Alkaline Phosphatase 181 U/L (46-116); Anion Gap 10.3 mmol/L (3-11); BUN 17 mg/dL (7-18); Bilirubin, Total 0.6 mg/dL (0.2-1.0); CO2 25.7 mmol/L (21.0-32.0); CREATININE 1.1 mg/dL (0.55-1.02); Calcium 8.4 mg/dL (8.5-10.1); Chloride 105 mmol/L (98-107); Estimated GFR 48.82 (mL/min/1.73m2); Glucose 128 mg/dL (74-106); Potassium 4.1 mmol/L (3.5-5.1); Sodium 141 mmol/L (136-145); Total Protein 6.7 g/dL (6.4-8.2)
[2020-11-06] MEDS: Normal Saline Flush 10 ML SYR IVP (08:03)
[2020-11-10 12:04] LABS: CA 19-9 11999 U/mL (<35)
[2020-11-21] MEDS: Normal Saline Flush 10 ML SYR IVP ×2 (07:57→12:01)
[2020-11-21 08:00] LABS: Abs Immature Grans 0.07 10^3/uL (0.0-0.06); Absolute Basophil Count 0.03 10^3/uL (0.0-0.2); Absolute Eosinophil Count 0.12 10^3/uL (0.0-0.7); Basophils % 0.3; Eosinophils % 1.2; Immature Grans % 0.7; Lymphocytes % 6.2; MCH 27.8 pg (27.0-33.0); MCHC 29.6 % (32.0-36.0); MCV 93.9 fL (80-95); MPV 10.1 fL (8.0-11.0); Monocytes % 7.3; Neutrophils % 84.3; Nucleated RBC 0 %; Platelet Count 308 10^3/uL (130-400); RBC 2.45 10^6/uL (3.93-5.22); RDW 17.6 % (11.7-14.6); RDW-SD 60.7 fL; WBC 9.62 10^3/uL (4.4-10.8)
[2020-11-21 08:11] LABS: ALT 20 U/L (14-59); AST 16 U/L (15-37); Albumin 2.8 g/dL (3.4-5.0); Alkaline Phosphatase 162 U/L (46-116); Anion Gap 9.4 mmol/L (3-11); BUN 17 mg/dL (7-18); Bilirubin, Total 0.3 mg/dL (0.2-1.0); CO2 25.6 mmol/L (21.0-32.0); CREATININE 1.2 mg/dL (0.55-1.02); Calcium 8.3 mg/dL (8.5-10.1); Chloride 108 mmol/L (98-107); Estimated GFR 44.16 (mL/min/1.73m2); Glucose 167 mg/dL (74-106); Potassium 3.7 mmol/L (3.5-5.1); Sodium 143 mmol/L (136-145); Total Protein 6.4 g/dL (6.4-8.2)
[2020-11-21 08:21] LABS: Anisocytosis 1+; Diff Comment Diff Reviewed; Hypochromasia 1+
[2020-11-21] MEDS: diphenhydrAMINE 25 MG CAP PO (11:25)
[2020-11-21] MEDS: Acetaminophen 325 MG TAB 650 MG PO (11:25)
[2020-11-21 11:54] VITALS: BP 136/81; PULSE 85; RESP 16; TEMP 36.8; O2SAT 98
[2020-11-21] MEDS: Heparin 500 UNITS/5 ML SYRINGE IV (12:01)
[2020-11-21 12:09] VITALS: BP 137/83; PULSE 93; RESP 16; TEMP 36.9; O2SAT 97
[2020-11-21 12:39] VITALS: BP 124/82; PULSE 89; RESP 16; TEMP 37.1; O2SAT 97
[2020-11-21 13:12] VITALS: BP 128/78; PULSE 79; RESP 16; TEMP 37; O2SAT 97
[2020-11-21 13:40] VITALS: BP 123/74; PULSE 81; RESP 16; TEMP 37.2; O2SAT 97
[2020-11-24 13:30] LABS: CA 19-9 11599 U/mL (<35)
[2020-11-25 06:26] LABS: HGB 6.8 g/dL (11.2-15.7)
== END 2020-11-29 23:59 | disposition home or self-care (01) ==
LOC: INF 11:00
PROVIDERS: PCP Family Medicine; Visit Provider Internal Medicine Hematology & Oncology
DX: C25.9 Malignant neoplasm of pancreas, unspecified (principal); C78.00 Secondary malignant neoplasm of unspecified lung; Z45.2 Encounter for adjustment and management of vascular access device; K86.89 Other specified diseases of pancreas
CPT/HCPCS: 36430; 36591; 80053; 86850; 86900; 86901; 86920; 85025; 86301; P9016

== ENCOUNTER 2020-11-25 03:21 | Outpatient (CLI) | payer MEDICARE, BC, SELFPAY ==
[2020-11-25 11:33] LABS: Source Nasal/Nares
[2020-11-25 15:18] LABS: COVID-19 PCR Negative (Negative)
== END 2020-11-25 03:22 | disposition home or self-care (01) ==
LOC: LBO 03:21
PROVIDERS: PCP Family Medicine; Visit Provider Urology
DX: Z20.822 Contact with and (suspected) exposure to COVID-19 (principal); Z01.818 Encounter for other preprocedural examination
CPT/HCPCS: 87635

== ENCOUNTER 2020-11-27 07:56 | Day surgery (SDC) | payer MEDICARE, BC, SELFPAY ==
[2020-11-27 08:00] VITALS: BP 145/78; PULSE 108; RESP 18; TEMP 36.4; O2SAT 96
[2020-11-27] MEDS: Lactated Ringers 1,000 ML 80 ML IV (08:44)
--- NOTE | 2020-11-27 09:12 | ANES.PREOP_ITS ---
General Info Date of Service Date Performed: 11/27/20 Height: 5 ft 4.96 in Weight: 69.3 kg Body Mass Index (BMI): 25.4 Surgical Procedure: Operation Date: 11/27/20 09:55 Proposed Procedures Side Surgeon p cysto eugenia retrograde with stent insertion Bilateral Baljinder Ortega MD Meds Allergies and Home Medications Allergies Allergy/AdvReac Type Severity Reaction Status Date / Time propoxyphene AdvReac Severe vomiting Verified 11/25/20 11:42 [From Darvocet-N] and nausea Home Medication Medication Instructions Recorded loratadine 10 mg PO QAM 10/23/19 Creon See Rx Instructions .ROUTE .COMPLEX 08/18/20 acetaminophen 650 mg PO QHS 08/18/20 cyanocobalamin (vitamin B-12) 1,000 mcg PO DAILY 08/18/20 [Vitamin B-12] famotidine 20 mg PO BID PRN 08/18/20 ondansetron 8 mg TRANSLINGUAL Q8H PRN PRN 08/18/20 apixaban [Eliquis DVT-PE Treat 30D See Rx Instructions .ROUTE 08/20/20 Start] .COMPLEX #74 dose pk albuterol sulfate 90 mcg/actuation 2 puff INHALATION Q6H PRN #8.5 g 10/11/20 aerosol inhaler sennosides 8.6 mg capsule 8.6 mg PO DAILY 11/04/20 mirtazapine 15 mg tablet 15 mg PO QHS PRN 11/20/20 Current Visit Medications: Current Medications Generic Name Dose Route Start Last Admin Trade Name Freq PRN Reason Stop Dose Admin Ringer's Solution 1,000 mls @ 80 mls/hr 11/27/20 06:00 11/27/20 08:44 IV 12/26/20 23:59 80 mls/hr INFUSION FERCHO Administration Cefazolin Sodium/Dextrose 1 gm in 50 mls @ 100 mls/hr 11/27/20 06:00 Ancef Duplex IVPB 11/27/20 16:00 PREOP FERCHO IV Miscellaneous Supplies 1 each 11/27/20 06:00 Iv Access IV 12/26/20 23:59 DIRECTED FERCHO Sodium Chloride 0 ml 11/27/20 06:00 Normal Saline Flush 10 Ml Syr IV 12/26/20 23:59 PRN PRN Sodium Chloride 0 ml 11/27/20 06:00 Normal Saline 10 Ml Vial IJ 12/26/20 23:59 DIRECTED PRN Sterile Water 0 ml 11/27/20 06:00 Water,Injection,Sterile 10 Ml Vial IJ 12/26/20 23:59 DIRECTED PRN PFSH Active Problems Active Problems: Problem Status Onset Code Acute on chronic anemia D64.9 Moving to [facility] Z59.8 Cholelithiasis K80.20 Chronic cholecystitis K81.1 Choledocholithiasis K80.50 Postop check Z09 Pulmonary emboli I26.99 Discharge planning issues Z02.9 Meningioma, recurrent of spine D32.1 Pancreatic cancer C25.9 Pancreatic lesion K86.9 Elevated LFTs R79.89 Paresthesia of hand R20.2 Reaction, situational F43.20 Onychomycosis of toenail B35.1 Bilateral hydronephrosis N13.30 Anemia D64.9 Fatigue R53.83 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, T45.1X5A Unintentional weight loss R63.4 Tachycardia R00.0 DNI (do not intubate) Z78.9 DNR (do not resuscitate) Z66 POLST (Physician Orders for Life-Sustaining Treatment) Z78.9 Goals of care, counseling/discussion Z71.89 Palliative care patient Z51.5 Medical History Medical History Acute on chronic anemia required 1 unit prbcs due to Hgb of <7 Anemia elevated ferritin Arthritis Bacteremia Bilateral hydronephrosis Chemotherapy-induced neuropathy Colonic polyp Diverticulosis DNI (do not intubate) DNR (do not resuscitate) Fatigue Goals of care, counseling/discussion Moving to [facility] has not sold [employer] yet; will return in Dec 2020 Obesity resolved Palliative care patient Palpitations POLST (Physician Orders for Life-Sustaining Treatment) Pulmonary embolism Skin lesion Tachycardia Unintentional weight loss Surgical History Surgical History S/P ACL repair left Tobacco Smoking/Tobacco Use Status: Former Tobacco Use Tobacco: How many years used: 6 Alcohol Alcohol Intake: never Substance Use Substance use type: does not use Vital Signs and Lab Results Vital Signs Most Recent Vital Signs in EMR: Most Recent Vital Signs Temp Pulse Resp BP Pulse Ox 36.4 C L 108 H 18 145/78 H 96 11/27/20 08:00 11/27/20 08:00 11/27/20 08:00 11/27/20 08:00 11/27/20 08:00 Lab Results Blood Type / Crossmatch: Patient ABO/Rh O Negative 11/21/20 07:35 11/21/20 Antibody Screen NEGATIVE 11/21/20 07:35 11/21/20 Crossmatch See Detail 11/21/20 07:35 11/21/20 Complete Blood Count: White Blood Count 9.62 10^3/uL (4.4-10.8) 11/21/20 07:35 11/21/20 Red Blood Count 2.45 10^6/uL (3.93-5.22) L 11/21/20 07:35 11/21/20 Hemoglobin 6.8 g/dL (11.2-15.7) L* 11/21/20 07:35 11/21/20 Hematocrit 23.0 % (36.0-46.0) L 11/21/20 07:35 11/21/20 Platelet Count 308 10^3/uL (130-400) 11/21/20 07:35 11/21/20 Complete Metabolic Panel: Sodium Level 143 mmol/L (136-145) 11/21/20 07:35 11/21/20 Potassium Level 3.7 mmol/L (3.5-5.1) 11/21/20 07:35 11/21/20 Chloride Level 108 mmol/L (98-107) H 11/21/20 07:35 11/21/20 Carbon Dioxide Level 25.6 mmol/L (21.0-32.0) 11/21/20 07:35 11/21/20 Blood Urea Nitrogen 17 mg/dL (7-18) 11/21/20 07:35 11/21/20 Creatinine 1.2 mg/dL (0.55-1.02) H 11/21/20 07:35 11/21/20 Estimated GFR/1.73 m2 44.16 (mL/min/1.73m2) 11/21/20 07:35 11/21/20 Calcium Level 8.3 mg/dL (8.5-10.1) L 11/21/20 07:35 11/21/20 Albumin 2.8 g/dL (3.4-5.0) L 11/21/20 07:35 11/21/20 Glucose Level 167 mg/dL (74-106) H 11/21/20 07:35 11/21/20 Liver Function Panel: Alanine Aminotransferase (ALT/SGPT) 20 U/L (14-59) 11/21/20 07:35 11/21/20 Aspartate Amino Transf (AST/SGOT) 16 U/L (15-37) 11/21/20 07:35 11/21/20 Coagulation Panel: No Data to Display Cardiac Panel: No Data to Display Arterial Blood Gas: No Data to Display Venous Blood Gas: No Data to Display Pancreas Panel: No Data to Display Thyroid Panel: No Data to Display Infectious Disease: Coronavirus (COVID-19)(PCR) Negative (Negative) 11/25/20 09:01 11/25/20 Coronavirus 2019 Source Nasal/Nares 11/25/20 09:01 11/25/20 Blood Cultures: No Data to Display Toxicology Panel: 2 No Data to Display Anesthesia Assessment and Plan Anesthesia History Personal History: No History of Anesthesia Complications Family History: No Family History of Anesthesia Complications Exercise Tolerance Exercise Tolerance: Metabolic Equivalents>4 Pertinent Negatives Pertinent Negatives: No Symptoms of GERD, No Major Cardiovascular Symptoms or Complaints and No History of CVA/TIA Cardiac & Pulmonary Exam Cardiac Exam: Normal S1/S2 Heart Sounds Pulmonary Exam: Clear Bilateral Breath Sounds and Other (Recent Pulmonary embolism. Patient with SOB. Improving with inhaler.) Airway Exam Known Difficult Airway: No Mallampati Class: 1 Mouth Opening: Normal (> 3cm) Thyromental Distance: Greater than 3 cm Neck Range of Motion: Full ROM Neck Circumference: Normal Teeth Condition: Normal Dentition ASA Classification ASA Score: ASA 3 Emergency Case?: No NPO Status NPO Status: NPO Clears >2 hours, Solids >8 hours Anesthesia Plan Resuscitation Status: Full Code Anesthesia Technique: General Anesthesia Airway Planned: Natural Airway Monitors Used: Standard Monitors
--- NOTE | 2020-11-27 09:18 | HPE_ITS ---
Date of service: 11/27/20 Time of Service: 09:18 Assessment and Plan Assessment and plan (1) Bilateral hydronephrosis: Status: Acute Assessment and plan: For cystoscopy with insertion bilateral ureteral stents. We will need to make arrangements to change the stents in 3 to 6 months. History of Present Illness History of Present Illness Chief Complaint: Bilateral hydronephrosis Narrative: This is a 70-year-old woman who has a history of metastatic pancreatic cancer. She has had multiple imaging studies performed since her initial diagnosis. Initially, she had no sign of hydronephrosis in either kidney. About 3 months ago, hydronephrosis on the right side was identified. On her most recent scan, the right hydronephrosis was stable and new onset left hydronephrosis was identified. His serum creatinine has risen slightly from her baseline of 0.7- 1.1. She is referred by Dr. Lu for consideration of stent placement. She has no flank pain. She continues to receive chemotherapy every 2 to 3 weeks. She is on Eliquis for pulmonary embolism. She has no issues with anesthesia in the past. Review of Systems Narrative: Weakness and weight loss. No fevers or chills No vision change or dysphasia No diabetes or thyroid SOB with exertion but not at rest. No cough or hemoptysis No chest pain or palpitations No nausea, vomiting Peripheral neuropathy related to chemo. No seizures, strokes Anemia. Bleeds/bruises easily due to anticoagulants No gout or arthralgia [facility] Medical History Acute on chronic anemia required 1 unit prbcs due to Hgb of <7 Anemia elevated ferritin Arthritis Bacteremia Bilateral hydronephrosis Chemotherapy-induced neuropathy Colonic polyp Diverticulosis DNI (do not intubate) DNR (do not resuscitate) Fatigue Goals of care, counseling/discussion Moving to new residence has not sold [employer] yet; will return in Dec 2020 Obesity resolved Palliative care patient Palpitations POLST (Physician Orders for Life-Sustaining Treatment) Pulmonary embolism Skin lesion Tachycardia Unintentional weight loss Surgical History S/P ACL repair left Family History Mother , from complications of her diabetes age 80 Breast cancer Diabetes Obesity Sister No problems noted. Sister Diabetes Obesity Sister Duodenal cancer Sister , age 61 of pancreatic cancer Pancreatic cancer Obesity Sister Diabetes Obesity Daughter No problems noted. Daughter Bipolar 1 disorder Son No problems noted. Granddaughter No problems noted. Father , aged 82 from sepsis Sepsis Social History (Updated 11/25/20 @ 18:29 by Gloria Gan MD) Smoking/Tobacco Use Status: Former Tobacco Use tobacco type: cigarettes Quit Date: 05/02/72 Pack-years: 6 Tobacco: How many years used: 6 Smoking risk assessment performed?: Yes Alcohol Intake: never Substance use type: does not use Caregiver/Support person: Yes Household members: spouse Housing: house Number of Children: 3 number of grandchildren: 1 Communication Needs: Corrective Lenses Education Level: college current occupation: retired dental hygienist and 4-H instructor Do you think of yourself as: straight/heterosexual Current gender identity: female What is your relationship status?: How often do you talk on the phone with friends or family?: three or more times per week How often do you get together with friends or relatives?: once per week Panel score (0-1 are the most socially isolated patients): 2 What type of physical activity do you participate in: walking and independent ambulation Duration: 15-30 minutes/day Frequency: 5-6 times per week Special tucker needs: No Seatbelt use: always Working smoke detector in home: Yes Fire extinguisher in home: Yes Do you feel safe at home: Yes Do you feel safe in your relationship?: Yes Additional Social history: to chronically ill , Tyron, who has a muscle-wasting disease attributed to his exposure to [place]. Two of her children, Clemente and Anuja, live in [place]. Her other daughter, Sherly, is planning on moving to [place], too, and enrolling in nursing school. She will live with her parents, at least initially as soon as Analilia and Tyron move out [place]. She and Tyron had been planning on moving to [facility] but then Analilia was diagnosed with pancreatic cancer out of the [place]. She is now on her third type of cancer-treatment. Her CA-19 is coming down--though has had some ups too. She knows her diagnosis is terminal. She wants to live fully as long as she can. Minimal pain. She had me sign an inter-state acceptable POLST form, indicating her desire to be DNR/DNI no matter where she ends up. Meds Allergies and Home Medications Allergies Allergy/AdvReac Type Severity Reaction Status Date / Time propoxyphene AdvReac Severe vomiting Verified 11/25/20 11:42 [From Johanne-Mamadou] and nausea Home Medications Medication Instructions Recorded Confirmed Type loratadine 10 mg PO QAM 10/23/19 11/27/20 History Creon See Rx Instructions .ROUTE .COMPLEX 08/18/20 11/27/20 History acetaminophen 650 mg PO QHS 08/18/20 11/27/20 History cyanocobalamin (vitamin B-12) 1,000 mcg PO DAILY 08/18/20 11/27/20 History [Vitamin B-12] famotidine 20 mg PO BID PRN 08/18/20 11/27/20 History ondansetron 8 mg TRANSLINGUAL Q8H PRN PRN 08/18/20 11/27/20 History apixaban [Eliquis DVT-PE Treat 30D See Rx Instructions .ROUTE 08/20/20 11/27/20 Rx Start] .COMPLEX #74 dose pk albuterol sulfate 90 mcg/actuation 2 puff INHALATION Q6H PRN #8.5 g 10/11/20 11/27/20 Rx aerosol inhaler sennosides 8.6 mg capsule 8.6 mg PO DAILY 11/04/20 11/27/20 History mirtazapine 15 mg tablet 15 mg PO QHS PRN 11/20/20 11/27/20 History Exam Const General: cooperative and comfortable Neck Neck: supple Resp Effort & Inspection: normal respiratory effort Auscultation: clear to auscultation bilaterally Cardio Rate: regular rate Rhythm: regular rhythm GI Palpation: no guarding Neuro General: patient alert, patient awake and patient oriented x3 Results Last Vital Signs Temp 36.4 C L 11/27/20 08:00 Pulse 108 H 11/27/20 08:00 Resp 18 11/27/20 08:00 BP 145/78 H 11/27/20 08:00 Pulse Ox 96 11/27/20 08:00
[2020-11-27 09:25] VITALS: BMI 25.4
--- NOTE | 2020-11-27 09:30 | DI.RAD_ITS ---
Exam(s) XR RETROGRADE IN OR EXAM: XR RETROGRADE IN OR CLINICAL HISTORY: stent placement. TECHNIQUE: 2D and realtime digital imaging was performed. CONTRAST MATERIAL: COMPARISON: CT CT CHEST/ABD/PEL W from 11/06/2020 FINDINGS: Fluoroscopy was fight a during right ureteral stent placement. See procedure note for details. IMPRESSION: Total fluoroscopy time 10 seconds RADIATION DOSE DELIVERED: Kar=1.63 mGy
[2020-11-27] MEDS: ceFAZolin 1 GM/50 ML BAG IVPB (10:16)
[2020-11-27] MEDS: Lidocaine 2% Jelly 6 ML SYR (10:21)
[2020-11-27] MEDS: Omnipaque 300 MG/ML 50 ML BTL (10:30)
--- NOTE | 2020-11-27 10:42 | W.PM.DSUDISC ---
Discharge Plan Disposition Patient Disposition: HOME Condition: Stable Discharge Details Reason For Visit: Bilateral hydronephrosis Attending Provider: Baljinder Ortega Primary Care Provider: Nubia Santana V Home Meds and New Rx's Prescriptions: No Action albuterol sulfate 90 mcg/actuation HFA aerosol inhaler 2 puff inhalation Q6H PRN (Reason: shortness of breath or wheezing) Qty: 8.5 RF: 0 senna 8.6 mg capsule 8.6 mg PO DAILY RF: 0 loratadine 10 mg Tablet 10 mg PO QAM RF: 0 ondansetron 8 mg tablet,disintegrating 8 mg translingual Q8H PRN PRNRF: 0 famotidine 20 mg tablet 20 mg PO BID PRNRF: 0 Creon 24,000-76,000 -120,000 unit capsule,delayed release(DR/EC) See Rx Instructions .ROUTE .COMPLEX RF: 0 cyanocobalamin (vitamin B-12) [Vitamin B-12] 1,000 mcg Tablet 1,000 mcg PO DAILY RF: 0 acetaminophen 650 mg Tablet 650 mg PO QHS RF: 0 Eliquis DVT-PE Treat 30D Start 5 mg (74 tabs) tablets,dose pack See Rx Instructions .ROUTE .COMPLEX Qty: 74 RF: 0 mirtazapine 15 mg tablet 15 mg PO QHS PRNRF: 0 Discharge Instructions Additional Instructions: Will need cystoscopy with stent exchange in 3 to 6 months Activity:: Activity as Tolerated Shower/Bathe:: 24 hours Diet:: As Tolerated Discharge Orders Discharge Orders: Discharge Order (Routine); Ordered 11/27/20 Ordered By: Baljinder Ortega DS: Diagnosis Discharge Diagnosis (1) Bilateral hydronephrosis: Status: Acute
--- NOTE | 2020-11-27 10:48 | ROE_ITS ---
Date of service: 11/27/20 Time of Service: 10:48 Operative Note Operative Note DATE OF PROCEDURE: 11/27/20 PRE-OP DIAGNOSIS: Bilateral hydronephrosis POST-OP DIAGNOSIS: same PROCEDURE: cystoscopy, bilateral retrograde pyelogram, insert bilateral uretyeral stents SURGEON: Baljinder Ortega ANESTHESIA TYPE: Local By Surgeon and General:No Airway Refer to Anesthesia Record ESTIMATED BLOOD LOSS: 0 PATHOLOGY: none sent COMPLICATIONS: None Patient was transported to: same day Patient's condition: stable Implants: 6 [place] by 22 to 30 cm ureteral stents bilaterally Indications: Is a 70-year-old woman who has a history of metastatic pancreatic cancer. She is receiving chemotherapy treatments. She had right hydronephrosis identified about 3 months ago. She now has left hydronephrosis as well. She presents for cystoscopy with placement of bilateral ureteral stents to help prevent progression to renal failure Findings: Hydronephrotic drip from left kidney Procedure Description: Patient was given IV antibiotics and brought to the operating room on 11/27/2020. After successful induction of general anesthesia without intubation, she was placed in the dorsal lithotomy position. Her genitalia was prepped and draped. 2% Xylocaine jelly was instilled into the urethra to act as a local anesthetic. A 22 [place] rigid cystoscope was passed through the urethra into the bladder. The urethra and bladder were inspected with a 30 degree lens. The left ureteral orifice was visualized and was cannulated with a 6 [place] access catheter. Retrograde film was obtained by injecting Omnipaque through the access catheter under fluoroscopic guidance. A dilated renal pelvis was identified. Multiple areas of ureteral narrowing were identified. A Glidewire was advanced through the access catheter and maneuvered up the ureter until the wire was curled in the upper pole calyx. Once the wire was placed, a hydronephrotic drip could be seen coming from the left ureteral orifice. The access catheter was removed and a 6 [place] variable length stent was advanced over the guidewire. The proximal end of the stent was curled within the renal pelvis and the distal end was curled within the bladder. The positioning of the stent was confirmed both fluoroscopically and cystoscopically. A similar procedure was performed on the right side. A ureteral access catheter was advanced into the ureteral orifice and a retrograde pyelogram was obtained by injecting Omnipaque through the catheter under fluoroscopic guidance. The right sided renal pelvis and calyces significantly more dilated than the left. Portions of the left ureter dilated as well although I did not fill the entire ureter with contrast. I passed a Glidewire through the access catheter above but in this instance, I did not see a hydronephrotic drip from the right. I removed the access catheter and positioned a 6 [place] variable length stent such that the proximal end was curled in one of the upper pole calyces and the distal and was curled within the bladder. The patient tolerated this procedure well with no complications. She will need to have her stents changed in 3 to 6 months.
[2020-11-27 10:50] VITALS: BP 111/62; PULSE 97; RESP 16; TEMP 36.4; O2SAT 96
--- NOTE | 2020-11-27 10:51 | W.ANESPOSTOP ---
Postoperative Evaluation Date, Time and Location Date Performed: 11/27/20 Time Performed: 10:51 Patient Location: Day Surgery Unit Vital Signs Most Recent Imported Vital Signs: Most Recent Vital Signs Temp Pulse Resp BP Pulse Ox 36.4 C L 108 H 18 145/78 H 96 11/27/20 08:00 11/27/20 08:00 11/27/20 08:00 11/27/20 08:00 11/27/20 08:00 Most Recent Manually Entered Vital Signs: Adult Blood Pressure: 111/62 Heart Rate: 96 Respirations: 10 Oxygen Saturation (%): 98 Temperature (C): 36.4 C Pain Score (0-10 Scale): 0 Assessment Mental Status: Awake (Alert & Oriented to Patient Baseline) Airway and Respiratory Function: Patent airway with normal (patient baseline) respiratory exam Cardiovascular Function: Hemodynamically Stable Hydration Status: Adequately Hydrated Nausea & Vomiting: No Nausea or Vomiting Pain: Pt. Denies Any Pain Peripheral Nerve Block: Patient did not receive a nerve block
[2020-11-27 10:52] VITALS: BP 111/62; PULSE 96; RESP 10; TEMPC 36.4; O2SAT 98
[2020-11-27] MEDS: Phenazopyridine 200 MG TAB PO (11:17)
[2020-11-27 11:40] VITALS: BP 117/62; PULSE 88; RESP 16; TEMP 36.4; O2SAT 95
== END 2020-11-27 12:02 | disposition home or self-care (01) ==
PROVIDERS: PCP Family Medicine; Visit Provider Urology
PROC: (CPT 52332; principal; 2020-11-27 09:45)
DX: N13.30 Unspecified hydronephrosis (principal); I26.99 Other pulmonary embolism without acute cor pulmonale; G62.9 Polyneuropathy, unspecified; D64.9 Anemia, unspecified; C25.9 Malignant neoplasm of pancreas, unspecified; C79.89 Secondary malignant neoplasm of other specified sites
CPT/HCPCS: 52332; 74420; J0690; J1100; J1885; J2001; J2250; J2405; Q9967

== ENCOUNTER 2020-11-29 10:46 | Inpatient (IN) | payer MEDICARE, BC, SELFPAY ==
[2020-11-29] VITALS (161 sets, daily range): BP systolic 96–162; BP diastolic 47–79; PULSE 73–123; RESP 14–28; TEMP 36.4–37; O2SAT 92–100
--- NOTE | 2020-11-29 11:00 | ED.GENADUL_ITS ---
Discharge Plan Disposition Patient Disposition: [facility] INPATIENT Condition: Serious Discharge Details Chief Complaint: Abd Prob Clinical Impression: Acute on chronic anemia, Fatigue, Anemia, Lower GI bleeding, Hypercoagulable state Admit Date/Time: 11/29/20 16:33 Admit Provider: Vincent Arreola Attending Provider: Vincent Arreola Primary Care Provider: Nubia Santana V ED Provider: Krystle Ortega Discharge Data Discharge Date/Time-TO BE ENTERED AT DEPARTURE: 11/29/20 17:40 Medical Decision Making Patient is a pleasant 70-year-old female presenting today with chief complaint of bright red blood per rectum that started this morning. Past medical history is pertinent for anemia, bilateral hydronephrosis with recent stent placement, pulmonary embolism anticoagulated on Eliquis, pancreatic cancer. Patient received Abraxane/Gemzar chemotherapeutic agent on 11/21/2020 at which time she also received PRBCs as her hemoglobin was 6.8. Patient reports that she has increased. Has not had GI bleed historically.She states that she had 3 loose BM this AM all of which had pili blood. States she has been lightheaded when she goes to a standing position. Feels SOB with exertion, relieved at rest. Deneis SOB. No missed doses of her anticoagulation On exam, patient does appear acutely ill. Tachycardic with a heart rate of 118. She is maintaining her blood pressure 138/53. Patient is tachypneic. Lungs are clear. Abdomen benign. Will obtain ECG, baseline blood work to include a type and screen. We will also perform a rectal exam. Rectal exam is concerning for BRPPR, +guiac. Concerned at this time for GI bleed. Her VS and appearance have me concerned for sigfnicant anemia. This may be associated with bleed from her tumor erroding into duodenum or other aspect of GI tract. Also considered diverticular bleed, ulcer or other more typical GI source. Will obtain imaging and labs for further evaluation. Contacted by lab, Hgb 4.6. We will order 2 units PRBC, she will likely need at least a total of 4. Discussed anemia with the patient. She and I had discussion about risks/benefits of transfusion. She voiced understanding and wishes to proceed. Remaining labs reviewed. No leukocytosis. Creatining is 1.1, this is baseline for the patient. Troponin WNL. CT reviewed by radiologist: FINDINGS: Lungs: There is a small right-sided pleural effusion. Postsurgical changes are noted in the right lung base. There are nodular densities noted in the posterior CP angles bilaterally. Liver: There is diffuse blurring of the fat in the periportal region of the root of the mesentery. There is mild dilatation of the extrahepatic bile ducts. There is a metallic biliary endoprosthesis in the distal common duct. Gallbladder and bile ducts: Prior cholecystectomy. Pancreas: There is diffuse dilatation of the pancreatic duct and atrophy of the pancreas, in the body and tail. Postsurgical changes are identified in the region of the pancreatic head Spleen: Normal. No splenomegaly. Adrenal glands: The left adrenal is diffusely enlarged. The right adrenal is diffusely enlarged. There is no evidence of adrenal mass. Kidneys and ureters: There are bilateral renal stents extending from the renal pelvis to the urinary bladder. There is bilateral hydronephrosis despite the stents. 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 Stomach and bowel: There is diffuse thickening of the gastric wall and duodenum. There is inflammation surrounding the pancreas. , this is likely causing the thickening of the gastric wall in duodenal wall. There is diffuse colonic diverticulosis. For Appendix: No evidence of appendicitis. Intraperitoneal space: Unremarkable. No free air. No significant fluid collection. Vasculature: Unremarkable. No abdominal aortic aneurysm. Lymph nodes: Unremarkable. No enlarged lymph nodes. Urinary bladder: Unremarkable as visualized. Reproductive: Unremarkable as visualized. Bones/joints: Unremarkable. No acute fracture. Soft tissues: Unremarkable. IMPRESSION: 1. Diffuse phlegmonous change surrounding the pancreatic head. 2. Atrophic pancreatic body and tail. 3. Biliary endoprosthesis in place with dilatation of the common duct and intrahepatic bile ducts. 4. Diffuse thickening of the gastric wall and duodenum likely secondary to the peripancreatic inflammation. 5. . Suspect bilateral lower lobe lung metastases with small right-sided pleural effusion. 6. Bilateral hydronephrosis and hydroureter despite the presence of bilateral ureteral stents. Consulted with Dr. Bustos, general surgeon. She reviewed images and is very concerned that the tumor is erroding and may be bleeding. Given the capabilities here, she advises that the patient would be better served at higher level of care. Wily typically gets her care at , will consult with their GI service. Have requested consultation with GI and oncology at [facility]. They do not have bed capacity. As they are her treating facility, will obtain consult. Will also send imaging to [facility] with likely plan to transfer there if bed unavailable at [facility]. Consulted with GI with [facility], Dr. Rebollar. He advises that if he was still having actively bleeding she would probably be having bowel movements. Recommended trying EGD and colonoscopy here. Recommended following VS. Recommended trending CBC Q8 hours. He advised likely lower source. Once stable at 7,would recommend colonoscopy tomorrow. Prep today. Advised likely AVM, diverticular bleed. Recommended bowel prep. Recommended holding anticoagulation. Advised that if she begins to bleed again, we could reverse. Recommended 2 large bore IV. [facility] does not have bed capacity, will consult with [facility]. Consulted with Dr. Parson at [facility]. He advised that he would not immediately interviene at this time. Advised PPI. Recommended that most diverticular bleeds will stop on their own. If bleeding recurs, recommends transfer to their facility. They are unable to accept the patient at this time d/t bed capacity but can potentially accept tomorrow. Consulted with Dr. Arreola. He agrees to admission for GI bleed and significant anemia. Patient has had no bleeding since being here. She is comfortable and hemodynamically stable. If patient begins to bleed again, plan will be to transferred to or [facility]. Patient is in agreement with this plan. Spoke with patient about code status, she would like to be FULL CODE. HPI General Mode of arrival: ambulatory . Date/Time Provider Initiated Documentation: 11/29/20 10:48 . Limitations to Documentation: no limitations . Information obtained by: patient, family (), RN notes reviewed and old records reviewed . History of Present Illness 70 year old F presents to the emergency department with the chief complaint of loose stools with bright red blood, described as moderate (denies any pain, reports 3 BM, lightheaded with standing), Quality is described as other (lightheaded, fatigued, short of breath), Patient started experiencing this hour(s) (BRBPR began this AM) and it has been constant. No relieving factors improve symptom(s), and Immobilization improves symptom(s), (lightheadedness improves when at rest) Movement worsens symptoms . Patient notes malaise and shortness of breath; denies chest pain, fever/chills, headaches, loss of appetite, nausea/vomiting, rash and syncope. Patient did receive the following treatments prior to a rrival, none Related Data Home Medications Medication Instructions Recorded Confirmed loratadine 10 mg PO QAM 10/23/19 11/29/20 Creon See Rx Instructions .ROUTE .COMPLEX 08/18/20 11/29/20 cyanocobalamin (vitamin B-12) 1,000 mcg PO DAILY 08/18/20 11/29/20 [Vitamin B-12] famotidine 20 mg PO BID PRN 08/18/20 11/29/20 ondansetron 8 mg TRANSLINGUAL Q8H PRN PRN 08/18/20 11/29/20 apixaban [Eliquis DVT-PE Treat 30D See Rx Instructions .ROUTE 08/20/20 11/29/20 Start] .COMPLEX #74 dose pk albuterol sulfate 90 mcg/actuation 2 puff INHALATION Q6H PRN #8.5 g 10/11/20 11/29/20 aerosol inhaler sennosides 8.6 mg capsule 8.6 mg PO DAILY 11/04/20 11/29/20 mirtazapine 15 mg tablet 15 mg PO QHS PRN 11/20/20 11/29/20 Previous Rx's Medication Instructions Recorded apixaban [Eliquis DVT-PE Treat 30D See Rx Instructions .ROUTE 08/20/20 Start] .COMPLEX #74 dose pk albuterol sulfate 90 mcg/actuation 2 puff INHALATION Q6H PRN #8.5 g 10/11/20 aerosol inhaler Allergies Allergy/AdvReac Type Severity Reaction Status Date / Time propoxyphene AdvReac Severe vomiting Verified 11/29/20 10:55 [From Darvocet-N] and nausea General Stated Complaint: Abd Prob OBDULIA: 3 Review of Systems Constitutional Constitutional: Reports as per HPI, Denies chills, Reports fatigue, Denies fever(s), Denies headache(s) and Reports lethargy ENT Ears, Nose, Mouth, and Throat: Denies headache(s) Cardiovascular Cardiovascular: Reports as per HPI, Denies chest pain and Reports dyspnea on exertion Respiratory Respiratory: Reports as per HPI, Denies cough and Reports dyspnea on exertion Gastrointestinal Gastrointestinal: Reports as per HPI Genitourinary Genitourinary: Denies hematuria Musculoskeletal Musculoskeletal: Reports as per HPI and Denies back pain Integumentary/Breasts Skin/Breast: Reports as per HPI and Denies rash Neurologic Neurologic: Reports as per HPI and Denies headache(s) Endocrine Endocrine: Reports fatigue [facility] Medical History Acute on chronic anemia required 1 unit prbcs due to Hgb of <7 Anemia elevated ferritin Arthritis Bacteremia Bilateral hydronephrosis Chemotherapy-induced neuropathy Colonic polyp Diverticulosis DNI (do not intubate) DNR (do not resuscitate) Fatigue Goals of care, counseling/discussion Moving to new residence has not sold [employer] yet; will return in Dec 2020 Obesity resolved Palliative care patient Palpitations POLST (Physician Orders for Life-Sustaining Treatment) Pulmonary embolism Skin lesion Tachycardia Unintentional weight loss Surgical History S/P ACL repair left S/P lobectomy of lung removal of right lung mets from pancreatic cancer S/P thoracotomy Family History Mother , from complications of her diabetes age 80 Breast cancer Diabetes Obesity Sister No problems noted. Sister Diabetes Obesity Sister Duodenal cancer Sister , age 61 of pancreatic cancer Pancreatic cancer Obesity Sister Diabetes Obesity Daughter No problems noted. Daughter Bipolar 1 disorder Son No problems noted. Granddaughter No problems noted. Father , aged 82 from sepsis Sepsis Social History Smoking/Tobacco Use Status: Former Tobacco Use tobacco type: cigarettes Quit Date: 05/02/72 Pack-years: 6 Tobacco: How many years used: 6 Smoking risk assessment performed?: Yes Alcohol Intake: never Substance use type: does not use Caregiver/Support person: Yes Household members: spouse Housing: house Number of Children: 3 number of grandchildren: 1 Communication Needs: Corrective Lenses Education Level: college current occupation: retired dental hygienist and 4-H instructor Do you think of yourself as: straight/heterosexual Current gender identity: female What is your relationship status?: How often do you talk on the phone with friends or family?: three or more times per week How often do you get together with friends or relatives?: once per week Panel score (0-1 are the most socially isolated patients): 2 What type of physical activity do you participate in: walking and independent ambulation Duration: 15-30 minutes/day Frequency: 5-6 times per week Special tucker needs: No Seatbelt use: always Working smoke detector in home: Yes Fire extinguisher in home: Yes Do you feel safe at home: Yes Do you feel safe in your relationship?: Yes Additional Social history: to chronically ill , Tyron, who has a muscle-wasting disease attributed to his exposure to [employer] [place]. Two of her children, Clemente and Anuja, live in [place]. Her other daughter, Sherly, is planning on moving to [place], too, and enrolling in nursing school. She will live with her parents, at least initially as soon as Analilia and [place] move [place]. She and Tyron had been planning on moving to [facility] but then Analilia was diagnosed with pancreatic cancer out of the [place]. She is now on her third type of cancer-treatment. Her CA-19 is coming down--though has had some ups too. She knows her diagnosis is terminal. She wants to live fully as long as she can. Minimal pain. She had me sign an inter-state acceptable POLST form, indicating her desire to be DNR/DNI no matter where she ends up. Exam Const General: cooperative, comfortable, no acute distress, well developed and ill appearing acutely Nutritional Appearance: average body habitus and well nourished Orientation: alert and awake [facility] Head: normal to inspection Mouth: moist mucous membranes Throat: posterior oropharynx normal Eyes Conjunctivae: conjunctival abnormality bilaterally pallor Resp Effort & Inspection: normal respiratory effort, able to speak in complete sentences, no respiratory distress and tachypneic Auscultation: clear to auscultation bilaterally, no rales, no rhonchi and no wheezes Cardio Rate: regular rate Rhythm: regular rhythm Heart Sounds: S1 normal and S2 normal GI Inspection: normal to inspection and no visible pulsation Palpation: soft, no hepatosplenomegaly, no aortic enlargement, not firm, no guarding, no pulsatile masses, not rigid and nontender Percussion: normal to percussion Auscultation: normal bowel sounds Rectal Exam - female: abnormal visual inspection (Dried blood noted around rectum), normal sphincter tone, abnormal stool Rectal exam abnormal stool - fema le: maroon stool, heme positive stool Rectal exam heme positive - female: gross blood, No hemorrhoids, No laceration, No lesions and No tenderness Back/Spine/Pelvis Back: no CVA tenderness Skin General skin exam: no rashes or lesions noted (patient is very pale) Trauma: no lacerations or abrasions Neuro General: patient alert and patient awake Cognition: normal cognition Speech: speech normal Gait: normal gait Psych Appearance: grossly normal and well kempt Mental Status: mental status grossly normal Speech and Movement: speech and movement normal Course Vital Signs Vital signs: Vital Signs Temperature 36.5 C 11/29/20 10:51 Pulse 118 H 11/29/20 10:51 Respiratory Rate 22 11/29/20 10:51 Blood Pressure 138/53 L 11/29/20 10:51 Pulse Oximetry 92 11/29/20 10:51 Temperature 36.5 C 11/29/20 10:51 Temperature Source Temporal Artery Scan 11/29/20 10:51 Pulse 118 H 11/29/20 10:51 Respiratory Rate 22 11/29/20 10:51 Blood Pressure 138/53 L 11/29/20 10:51 Pulse Oximetry 92 11/29/20 10:51 Oxygen Delivery Method Room Air 11/29/20 10:51 Oxygen Flow Rate 0 11/29/20 10:51 Pain Level 0 11/29/20 10:51
--- NOTE | 2020-11-29 11:00 | RT.EKG_ITS ---
APPROVED REPORT Exam: Resting ECG Reason for Exam: tachycardia Patient Location: E HR:95 bpm ECG Measurements Heart Rate 95 AXIS AZ 170 P 46 QRSd 102 QRS 15 QT 349 T 31 QTc 438 Conclusion Sinus rhythm...normal P axis, V-rate 60- 99. No STEMI. I have reviewed and interpreted ECG and agree with software generated interpretation.
[2020-11-29] MEDS: Lactated Ringers 1,000 ML 500 ML IV (11:17)
[2020-11-29 11:21] LABS: Abs Immature Grans 0.18 10^3/uL (0.0-0.06); Absolute Basophil Count 0.01 10^3/uL (0.0-0.2); Absolute Eosinophil Count 0.08 10^3/uL (0.0-0.7); Absolute Lymphocyte Count 0.84 10^3/uL (1.2-3.4); Absolute Neutrophil Count 7.25 10^3/uL (1.2-6.7); Basophils % 0.1; Eosinophils % 0.9; Lymphocytes % 9.3; MCH 27.5 pg (27.0-33.0); MCHC 29.9 % (32.0-36.0); MCV 92.2 fL (80-95); MPV 10.2 fL (8.0-11.0); Monocytes % 7.7; Nucleated RBC 0 %; Platelet Count 166 10^3/uL (130-400); RBC 1.67 10^6/uL (3.93-5.22); RDW 17.7 % (11.7-14.6); RDW-SD 58.6 fL; WBC 9.06 10^3/uL (4.4-10.8)
[2020-11-29 11:27] LABS: HCT 15.4 % (36.0-46.0); HGB 4.6 g/dL (11.2-15.7)
[2020-11-29 11:37] LABS: Anisocytosis 1+; Diff Comment RBC Morph Reviewed; Hypochromasia 2+; Polychromasia Present
[2020-11-29 11:38] LABS: ALT 37 U/L (14-59); AST 25 U/L (15-37); Albumin 2.9 g/dL (3.4-5.0); Alkaline Phosphatase 208 U/L (46-116); Anion Gap 8.7 mmol/L (3-11); BUN 28 mg/dL (7-18); Bilirubin, Total 0.4 mg/dL (0.2-1.0); CO2 27.3 mmol/L (21.0-32.0); CREATININE 1.1 mg/dL (0.55-1.02); Calcium 8.2 mg/dL (8.5-10.1); Chloride 105 mmol/L (98-107); Estimated GFR 48.82 (mL/min/1.73m2); Glucose 165 mg/dL (74-106); Magnesium 2.1 mg/dL (1.8-2.4); Potassium 3.9 mmol/L (3.5-5.1); Sodium 141 mmol/L (136-145); Total Protein 6.2 g/dL (6.4-8.2); Troponin I < 0.05 ng/mL (<0.06)
[2020-11-29 11:41] LABS: INR 1.1 (0.9-1.1); Prothrombin Time 10.8 sec (9.3-11.0)
--- NOTE | 2020-11-29 12:42 | DI.CT_ITS ---
Exam(s) CT ABDOMEN PELVIS W EXAM: CT ABDOMEN PELVIS W CLINICAL HISTORY: rectal bleeding, hx of pancreatic ca TECHNIQUE: COMPARISON: CT CT CHEST/ABD/PEL W from 11/06/2020 FINDINGS: CT examination of the abdomen and pelvis was performed with intravenous infusion of 100 cc of Omnipaq ue 350. Examination is compared with prior examination of November 06. Note is again made of bibasilar pulmonary nodules consistent with metastatic disease, grossly unchanged from prior study. Biliary endoprosthesis noted. Patient reportedly has a history of pancreatic carcinoma. No intrahep atic biliary dilatation. No focal hepatic lesion. Spleen is unremarkable. There is edema in the re gion of the pancreatic head, this is nonspecific and may represent inflammatory process. Increasing local spread of carcinoma not excluded. However the the degree of change from prior examination of would make inflammatory process more likely period No bulky abdominal adenopathy identified. Bilateral renal stents noted, no gross hydronephrosis. No gross free intraperitoneal fluid. IMPRESSION: Interval change in appearance of pancreatic head/peripancreatic fat with suggestion of edema raising the possibility of inflammatory process. Please correlate clinically. RADIATION DOSE DELIVERED: 864.18mGy.cm Total DLP CTDIvol RADIATION OPTIMIZATION: All CT scans at this facility use at least one of these dose optimization te chniques: automated exposure control; mA and/or kV adjustment per patient size (includes targeted exa ms where dose is matched to clinical indication); or iterative reconstruction.
[2020-11-29] MEDS: Normal Saline - Diluent 50 ML VIAL IV (12:47)
[2020-11-29] MEDS: Omnipaque 350 MG/ML 100 ML BTL IJ (12:48)
[2020-11-29] MEDS: Normal Saline Flush 10 ML SYR IVP (12:49)
--- NOTE | 2020-11-29 12:57 | NUR.NOTE ---
PRBC transfusion started at 50mls an hour and increased to 100mls/hr after 10 mins, no transfusion reaction s/s.
--- NOTE | 2020-11-29 13:15 | NUR.NOTE ---
increased PRBCs transfusion to 200mls/hr
--- NOTE | 2020-11-29 13:27 | DI.VRAD_ITS ---
PROCEDURE INFORMATION: Exam: CT Abdomen And Pelvis With Contrast Exam date and time: 11/29/2020 11:31 AM Age: 70 years old Clinical indication: Patient HX: Rectal bleeding, HX of pancreatic CA TECHNIQUE: Imaging protocol: Computed tomography of the abdomen and pelvis with contrast. Radiation optimization: All CT scans at this facility use at least one of these dose optimization techniques: automated exposure control; mA and/or kV adjustment per patient size (includes targeted exams where dose is matched to clinical indication); or iterative reconstruction. Contrast material: OMNI-PAQUE 350; Contrast volume: 100 ml; Contrast route: INTRAVENOUS (IV); COMPARISON: CT CHEST/ABD/PEL W 11/06/2020 9:06 AM FINDINGS: Lungs: There is a small right-sided pleural effusion. Postsurgical changes are noted in the right lung base. There are nodular densities noted in the posterior CP angles bilaterally. Liver: There is diffuse blurring of the fat in the periportal region of the root of the mesentery. There is mild dilatation of the extrahepatic bile ducts. There is a metallic biliary endoprosthesis in the distal common duct. Gallbladder and bile ducts: Prior cholecystectomy. Pancreas: There is diffuse dilatation of the pancreatic duct and atrophy of the pancreas, in the body and tail. Postsurgical changes are identified in the region of the pancreatic head Spleen: Normal. No splenomegaly. Adrenal glands: The left adrenal is diffusely enlarged. The right adrenal is diffusely enlarged. There is no evidence of adrenal mass. Kidneys and ureters: There are bilateral renal stents extending from the renal pelvis to the urinary bladder. There is bilateral hydronephrosis despite the stents. 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 Stomach and bowel: There is diffuse thickening of the gastric wall and duodenum. There is inflammation surrounding the pancreas. , this is likely causing the thickening of the gastric wall in duodenal wall. There is diffuse colonic diverticulosis. For Appendix: No evidence of appendicitis. Intraperitoneal space: Unremarkable. No free air. No significant fluid collection. Vasculature: Unremarkable. No abdominal aortic aneurysm. Lymph nodes: Unremarkable. No enlarged lymph nodes. Urinary bladder: Unremarkable as visualized. Reproductive: Unremarkable as visualized. Bones/joints: Unremarkable. No acute fracture. Soft tissues: Unremarkable. IMPRESSION: 1. Diffuse phlegmonous change surrounding the pancreatic head. 2. Atrophic pancreatic body and tail. 3. Biliary endoprosthesis in place with dilatation of the common duct and intrahepatic bile ducts. 4. Diffuse thickening of the gastric wall and duodenum likely secondary to the peripancreatic inflammation. 5. . Suspect bilateral lower lobe lung metastases with small right-sided pleural effusion. 6. Bilateral hydronephrosis and hydroureter despite the presence of bilateral ureteral stents. Dictated and Authenticated by: Sudarshan Portillo MD. Ordering:BETZY Dalton MD
--- NOTE | 2020-11-29 14:27 | NUR.NOTE ---
second trop obtained off IV after waste
[2020-11-29 14:44] LABS: Troponin I < 0.05 ng/mL (<0.06)
--- NOTE | 2020-11-29 15:17 | NUR.NOTE ---
2nd PRBC infusing at 100mls per hour to start, increased to 200mls/hr
[2020-11-29] MEDS: Pantoprazole 40 MG VIAL IVP (17:22)
[2020-11-29 17:43] LABS: MCH 28.6 pg (27.0-33.0); MCHC 31.8 % (32.0-36.0); MCV 89.9 fL (80-95); MPV 10.7 fL (8.0-11.0); Platelet Count 152 10^3/uL (130-400); RBC 2.17 10^6/uL (3.93-5.22); RDW 15.7 % (11.7-14.6); RDW-SD 50.5 fL; WBC 6.78 10^3/uL (4.4-10.8)
[2020-11-29 17:46] LABS: HCT 19.5 % (36.0-46.0); HGB 6.2 g/dL (11.2-15.7)
[2020-11-29 18:08] LABS: Source Nasal/Nares
--- NOTE | 2020-11-29 18:29 | HPE_ITS ---
Date of service: 11/29/20 Time of Service: 18:29 Assessment and Plan Assessment and plan (1) Lower GI bleeding: Status: Acute Assessment and plan: Very red blood per rectum presumably due to diverticular bleeding. There is some concern with some inflammation of the duodenum and gastric wall. This may be peripancreatic inflammation from her pancreatic cancer. Patient has no prior history of peptic ulcer disease and no history of H. pylori infection. The bright red blood per rectum most likely is lower GI bleeding rather than upper GI bleeding as the patient is hemodynamically stable. If this were an upper GI bleed I would expect her to have coffee-ground emesis and melanotic stools. Patient be kept on Protonix for upper GI protection. We will correct her anemia with repeated transfusions with a goal of a hemoglobin around 8 g. If she requires 1/4 unit of packed red blood cells this should be accompanied by 2 units of FFP and 1 unit of platelets. If she has further GI bleeding then the truck engine assembler should consult with [facility] who called me and indicated they do have a bed available but because she is hemodynamically stable they would prefer that we keep her here which is the patient's wishes. [facility] also indicated that we should try [facility] for since this is where she has had all of her cancer care and surgeries. (2) Acute on chronic anemia: Status: Acute Assessment and plan: Transfuse third unit of packed red cells tonight repeat H&H later tonight. (3) Pulmonary emboli: Status: Chronic Assessment and plan: Eliquis to be kept on hold for 72 hours until we are sure there is no further bleeding. I will consult with her oncologist and GI tonny m [facility] regarding timing of restarting her Eliquis. Qualifiers: Pulmonary embolism type: other Chronicity: chronic Acute cor pulmonale presence: without acute cor pulmonale Qualified Code(s): I27.82 - Chronic pulmonary embolism (4) Pancreatic cancer: Status: Acute Qualifiers: Pancreatic malignancy location: head of pancreas Qualified Code(s): C25.0 - Malignant neoplasm of head of pancreas (5) DNR (do not resuscitate): Status: Acute Assessment and plan: Patient is a DNR in the event of cardiopulmonary arrest but wishes full medical management otherwise. I have confirmed her wishes. She has discussed this w/ her palliative care physician, Dr. Gan. History of Present Illness History of Present Illness Chief Complaint: bright rectal bleeding Narrative: 70 yr old female w/ stage 4 pancreatic cancer w/ lung mets who was diagnosed in July 2019 w/ stage 2 pancreatic cancer but after extensive workup was found to have stage 4 disease and has been under chemotherapy w/ Abraxane/Gemzar and who had bilateral ureteral stents place last week, and her cancer has been complicated by pulmonary emboli discovered during restaging CT scans in June 2020 and has been on Apixaban presented to the ER w/ bright red rectal bleeding that began around 9 am today. She had three episodes of bright red bleeding. On arrival to the ER she was tachycardic at 118 bpm but not hypotensive (BP 138/53) but was found to be profoundly anemic w/ Hb 4.6 gm. Note she was also anemic w/ Hb of 6.8 gm a week ago when she was transfused 1 unit during her chemotherapy on 11/21. She has felt weak and lightheaded ever since her cystoscopy and bilateral ureteral stenting done on 11/27. She denies any hx of diverticulitis or PUD. She denies any current abdominal pains nor fevers or rigors. CT of her abdomen and pelvis were done w/ contrast today and demonstrated the following: FINDINGS: CT examination of the abdomen and pelvis was performed with intravenous infusion of 100 cc of Omnipaque 350. Examination is compared with prior examination of November 06. Note is again made of bibasilar pulmonary nodules consistent with metastatic disease, grossly unchanged from prior study. Biliary endoprosthesis noted. Patient reportedly has a history of pancreatic carcinoma. No intrahepatic biliary dilatation. No focal hepatic lesion. Spleen is unremarkable. There is edema in the region of the pancreatic head, this is nonspecific and may represent inflammatory process. Increasing local spread of carcinoma not excluded. However the the degree of change from prior examination of November 06 would make inflammatory process more likely period No bulky abdominal adenopathy identified. Bilateral renal stents noted, no gross hydronephrosis. No gross free intraperitoneal fluid. IMPRESSION: Interval change in appearance of pancreatic head/peripancreatic fat with suggestion of edema raising the possibility of inflammatory process. Please correlate clinically. Deborah Rodríguez from [facility] ED called [facility] and [facility] about potential transfer and consulted w/ Dr. Bustos, surgery from [facility] about management of what appears to be a lower GI bleed. Our surgeon and anesthesia will not peform c-scope here d/t her advance pancreatic cancer. [facility] is at bed capacity and can not take her in transfer. [facility] would consider transfer if a bed becomes available but feels that if her bleeding has ceased then she can be managed here indicated that they will consider transfer if urgently needed. Patient was given transfusion of 2 u nits of PRBC from the ER and her repeat Hb is now 6.2. She is admitted to our ICU for further transfusion and monitoring for further GI bleeding. She remains pain free and w/out nausea or vomiting and she is hemodynamically stable. She will receive another unit of PRBC tonight w/ repeat hemogram afterwards. She was put on GI protection w/ Protonix. Review of Systems All systems reviewed & are unremarkable except as noted in HPI and below Gastrointestinal Gastrointestinal: Reports as per HPI, Denies abdominal pain, Denies melena, Reports hematochezia and Denies coffee ground emesis PENDING SALE TO [facility] Medical History (Updated 11/29/20 @ 19:25 by Vincent Arreola) Acute on chronic anemia required 1 unit prbcs due to Hgb of <7 Anemia elevated ferritin Arthritis Bacteremia Bilateral hydronephrosis Chemotherapy-induced neuropathy Colonic polyp Diverticulosis DNI (do not intubate) DNR (do not resuscitate) Fatigue Goals of care, counseling/discussion Moving to new residence has not sold [place] house yet; will return in Dec 2020 Obesity resolved Palliative care patient Palpitations Pancreatic cancer POLST (Physician Orders for Life-Sustaining Treatment) Pulmonary embolism Skin lesion Tachycardia Unintentional weight loss Surgical History (Updated 11/29/20 @ 19:20 by Vincent Arreola) S/P ACL repair left S/P lobectomy of lung removal of right lung mets from pancreatic cancer S/P thoracotomy Family History Mother , from complications of her diabetes age 80 Breast cancer Diabetes Obesity Sister No problems noted. Sister Diabetes Obesity Sister Duodenal cancer Sister , age 61 of pancreatic cancer Pancreatic cancer Obesity Sister Diabetes Obesity Daughter No problems noted. Daughter Bipolar 1 disorder Son No problems noted. Granddaughter No problems noted. Father , aged 82 from sepsis Sepsis Social History Smoking/Tobacco Use Status: Former Tobacco Use tobacco type: cigarettes Quit Date: 05/02/72 Pack-years: 6 Tobacco: How many years used: 6 Smoking risk assessment performed?: Yes Alcohol Intake: never Substance use type: does not use Caregiver/Support person: Yes Household members: spouse Housing: house Number of Children: 3 number of grandchildren: 1 Communication Needs: Corrective Lenses Education Level: college current occupation: retired dental hygienist and 4-H instructor Do you think of yourself as: straight/heterosexual Current gender identity: female What is your relationship status?: How often do you talk on the phone with friends or family?: three or more times per week How often do you get together with friends or relatives?: once per week Panel score (0-1 are the most socially isolated patients): 2 What type of physical activity do you participate in: walking and independent ambulation Duration: 15-30 minutes/day Frequency: 5-6 times per week Special tucker needs: No Seatbelt use: always Working smoke detector in home: Yes Fire extinguisher in home: Yes Do you feel safe at home: Yes Do you feel safe in your relationship?: Yes Additional Social history: to chronically ill , Tyron, who has a muscle-wasting disease attributed to his exposure to [place]. Two of her children, Clemente and Anuja, live in [place]. Her other daughter, Sherly, is planning on moving to [place], [facility], and enrolling in nursing school. She will live with her parents, at least initially as soon as Analilia and Tyron move out [place]. Danelle ricks and Tyron had been planning on moving to [facility] but then Analilia was diagnosed with pancreatic cancer out of the [place]. She is now on her third type of cancer- treatment. Her CA-19 is coming down--though has had some ups too. She knows her diagnosis is terminal. She wants to live fully as long as she can. Minimal pain. She had me sign an inter-state acceptable POLST form, indicating her desire to b e DNR/DNI no matter where she ends up. Meds Allergies and Home Medications Allergies Allergy/AdvReac Type Severity Reaction Status Date / Time propoxyphene AdvReac Severe vomiting Verified 11/29/20 10:55 [From Darvocet-N] and nausea Home Medications Medication Instructions Recorded Confirmed Type loratadine 10 mg PO QAM 10/23/19 11/29/20 History Creon See Rx Instructions .ROUTE .COMPLEX 08/18/20 11/29/20 History cyanocobalamin (vitamin B-12) 1,000 mcg PO DAILY 08/18/20 11/29/20 History [Vitamin B-12] famotidine 20 mg PO BID PRN 08/18/20 11/29/20 History ondansetron 8 mg TRANSLINGUAL Q8H PRN PRN 08/18/20 11/29/20 History apixaban [Eliquis DVT-PE Treat 30D See Rx Instructions .ROUTE 08/20/20 11/29/20 Rx Start] .COMPLEX #74 dose pk albuterol sulfate 90 mcg/actuation 2 puff INHALATION Q6H PRN #8.5 g 10/11/20 11/29/20 Rx aerosol inhaler sennosides 8.6 mg capsule 8.6 mg PO DAILY 11/04/20 11/29/20 History mirtazapine 15 mg tablet 15 mg PO QHS PRN 11/20/20 11/29/20 History Exam Narrative Exam Narrative: Elderly white female who is alert and oriented person place time circumstance sitting up in bed in semifowler position in no acute distress. HEENT is remarkable for pale conjunctiva and pale complexion Neck is supple nontender no JVD no lymphadenopathy normal carotid pulses no bruits Lungs with right basilar fine rales no rhonchi or wheezing left side is clear Chest wall with scar from thoracotomy over the right posterolateral chest wall Heart is regular rate and rhythm without murmur rub or gallop Abdomen is soft nontender nondistended normal active bowel sounds no guarding no bruits no palpable masses Lower extremities without peripheral cyanosis or edema normal pedal pulses Neuro exam grossly intact no focal deficits Results Imaging Abdomen CT scan report/results: report reviewed CT scan - pelvis: report reviewed Labs Result diagrams: 11/29/20 17:30 11/29/20 11:05 Labs: Laboratory Results - last 24 hr 11/29/20 11/29/20 11/29/20 11:05 11:05 11:05 WBC 9.06 RBC 1.67 L Hgb 4.6 L* Hct 15.4 L* MCV 92.2 MCH 27.5 MCHC 29.9 L RDW 17.7 H Plt Count 166 D MPV 10.2 Immature Gran % 2.0 Neutrophils % 80.0 Lymphocytes % 9.3 Monocytes % 7.7 Eosinophils % 0.9 Basophils % 0.1 Nucleated RBC % 0 Absolute Neutrophils 7.25 H Absolute Lymphocytes 0.84 L Absolute Monocytes 0.70 Absolute Eosinophils 0.08 Absolute Basophils 0.01 RBC Morphology See Below Polychromasia Present Hypochromasia 2+ Anisocytosis 1+ PT 10.8 INR 1.1 Sodium 141 Potassium 3.9 Chloride 105 Carbon Dioxide 27.3 Anion Gap 8.7 BUN 28 H Creatinine 1.1 H Estimated GFR/1.73 m2 48.82 Glucose 165 H Calcium 8.2 L Magnesium 2.1 Total Bilirubin 0.4 AST 25 ALT 37 Alkaline Phosphatase 208 H Troponin I < 0.05 Total Protein 6.2 L Albumin 2.9 L COVID-19 Source Patient ABO/Rh Antibody Screen Crossmatch 11/29/20 11/29/20 11/29/20 11:05 14:18 17:30 WBC 6.78 RBC 2.17 L Hgb 6.2 L* Hct 19.5 L* D MCV 89.9 MCH 28.6 MCHC 31.8 L RDW 15.7 H Plt Count 152 MPV 10.7 Immature Gran % Neutrophils % Lymphocytes % Monocytes % Eosinophils % Basophils % Nucleated RBC % Absolute Neutrophils Absolute Lymphocytes Absolute Monocytes Absolute Eosinophils Absolute Basophils RBC Morphology Polychromasia Hypochromasia Anisocytosis PT INR Sodium Potassium Chloride Carbon Dioxide Anion Gap BUN Creatinine Estimated GFR/1.73 m2 Glucose Calcium Magnesium Total Bilirubin AST ALT Alkaline Phosphatase Troponin I < 0.05 Total Protein Albumin COVID-19 Source Patient ABO/Rh O Negative Antibody Screen NEGATIVE Crossmatch See Detail 11/29/20 18:04 WBC RBC Hgb Hct MCV MCH MCHC RDW Plt Count MPV Immature Gran % Neutrophils % Lymphocytes % Monocytes % Eosinophils % Basophils % Nucleated RBC % Absolute Neutrophils Absolute Lymphocytes Absolute Monocytes Absolute Eosinophils Absolute Basophils RBC Morphology Polychromasia Hypochromasia Anisocytosis PT INR Sodium Potassium Chloride Carbon Dioxide Anion Gap BUN Creatinine Estimated GFR/1.73 m2 Glucose Calcium Magnesium Total Bilirubin AST ALT Alkaline Phosphatase Troponin I Total Protein Albumin COVID-19 Source Nasal/Nares Patient ABO/Rh Antibody Screen Crossmatch Last Vital Signs Temp 36.8 C 11/29/20 16:38 Pulse 89 11/29/20 16:38 Resp 18 07/31/21 16:38 BP 123/56 L 11/29/20 16:38 Pulse Ox 97 11/29/20 16:38
[2020-11-29 18:59] LABS: COVID-19 PCR Negative (Negative)
[2020-11-30] VITALS (42 sets, daily range): BP systolic 103–135; BP diastolic 49–80; PULSE 71–121; RESP 15–30; TEMP 36–36.7; O2SAT 94–97
[2020-11-30 00:04] LABS: HGB 7.3 g/dL (11.2-15.7)
[2020-11-30] MEDS: Normal Saline 1,000 ML 65 ML IV (03:07)
[2020-11-30 06:48] LABS: Abs Immature Grans 0.07 10^3/uL (0.0-0.06); Absolute Basophil Count 0.02 10^3/uL (0.0-0.2); Absolute Eosinophil Count 0.13 10^3/uL (0.0-0.7); Absolute Monocyte Count 0.56 10^3/uL (0.1-0.8); Absolute Neutrophil Count 3.84 10^3/uL (1.2-6.7); Basophils % 0.4; Eosinophils % 2.5; HCT 24.8 % (36.0-46.0); HGB 7.8 g/dL (11.2-15.7); Immature Grans % 1.4; Lymphocytes % 9.8; MCH 27.9 pg (27.0-33.0); MCHC 31.5 % (32.0-36.0); MCV 88.6 fL (80-95); MPV 10.1 fL (8.0-11.0); Monocytes % 10.9; Nucleated RBC 0 %; Platelet Count 122 10^3/uL (130-400); RDW 16.9 % (11.7-14.6); RDW-SD 53.6 fL; WBC 5.12 10^3/uL (4.4-10.8)
[2020-11-30 06:57] LABS: Anion Gap 5.5 mmol/L (3-11); BUN 22 mg/dL (7-18); CO2 29.5 mmol/L (21.0-32.0); CREATININE 0.9 mg/dL (0.55-1.02); Calcium 8.2 mg/dL (8.5-10.1); Chloride 109 mmol/L (98-107); Glucose 93 mg/dL (74-106); Potassium 3.9 mmol/L (3.5-5.1); Sodium 144 mmol/L (136-145)
--- NOTE | 2020-11-30 10:59 | PGE_ITS ---
Date of Service Date of service: 11/30/20 Time of Service: 09:30 Assessment and Plan Assessment and plan (1) Lower GI bleeding: Status: Acute Assessment and plan: No further GI bleeding and stable hemoglobin. continue to hold her Apixaban for at least 72 hrs post bleed but will confer w/ GI and Heme/Onc @ [facility] prior to resumption of anticoagulation. (2) Acute on chronic anemia: Status: Acute Assessment and plan: improved after transfusion of 3rd unit of PRBC. Will put her on iron supplementation (Venofer). cont. GI protection w/ Protonix (3) Pulmonary emboli: Status: Chronic Assessment and plan: Eliquis to be kept on hold for 72 hours until we are sure there is no further bleeding. I will consult with her oncologist and GI from [facility] regarding timing of restarting her Eliquis. Qualifiers: Pulmonary embolism type: other Chronicity: chronic Acute cor pulmonale presence: without acute cor pulmonale Qualified Code(s): I27.82 - Chronic pulmonary embolism (4) Pancreatic cancer: Status: Acute Qualifiers: Pancreatic malignancy location: head of pancreas Qualified Code(s): C25.0 - Malignant neoplasm of head of pancreas (5) DNR (do not resuscitate): Status: Acute Assessment and plan: Patient is a DNR in the event of cardiopulmonary arrest but wishes full medical management otherwise. I have confirmed her wishes. She has discussed this w/ her palliative care physician, Dr. Gan. Subjective Subjective Interval history since last seen: Patient denies any abdominal pain, CP or dyspnea. Hb is now up to 7.8 gm after transfusion of 3 units PRBC yesterday. She has had no further bleeding. At this point I do not feel that she will need urgent transfer to either [facility] or to [facility]. I will advance her diet today and monitor her counts and monitor for further bleeding. If no further bleeding then plan for dc tomorrow. I will consult w/ her sewage reticulation drafting officer/oncologist tomorrow and w/ [facility] GI regarding timing of restarting her Apixaban vs using alternative anticoagulant (i.e. lovenox) in light of her recent PE. She is stable and ready for transfer to med/surg. 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 She is sitting up in bed. Her color looks better (not as pale as yesterday prior to her transfusions) Lungs: clear Heart: RRR Abdomen: soft, nondistended, normal bowel sounds, nontender Objective Last Vital Signs Temp 36.1 C L 11/30/20 07:20 Pulse 78 11/30/20 08:00 Resp 20 11/30/20 08:01 BP 129/65 11/30/20 08:00 Pulse Ox 94 11/30/20 08:01 Laboratory Results - last 24 hr 11/29/20 11/29/20 11/29/20 00:00 11:05 11:05 WBC 9.06 RBC 1.67 L Hgb 7.3 L 4.6 L* D Hct 23.0 L 15.4 L* D MCV 92.2 MCH 27.5 MCHC 29.9 L RDW 17.7 H Plt Count 166 D MPV 10.2 Immature Gran % 2.0 Neutrophils % 80.0 Lymphocytes % 9.3 Monocytes % 7.7 Eosinophils % 0.9 Basophils % 0.1 Nucleated RBC % 0 Absolute Neutrophils 7.25 H Absolute Lymphocytes 0.84 L Absolute Monocytes 0.70 Absolute Eosinophils 0.08 Absolute Basophils 0.01 RBC Morphology See Below Polychromasia Present Hypochromasia 2+ Anisocytosis 1+ PT INR Sodium 141 Potassium 3.9 Chloride 105 Carbon Dioxide 27.3 Anion Gap 8.7 BUN 28 H Creatinine 1.1 H Estimated GFR/1.73 m2 48.82 Glucose 165 H Calcium 8.2 L Magnesium 2.1 Total Bilirubin 0.4 AST 25 ALT 37 Alkaline Phosphatase 208 H Troponin I < 0.05 Total Protein 6.2 L Albumin 2.9 L COVID-19 Source SARS-CoV-2 (PCR) Patient ABO/Rh Antibody Screen Crossmatch 11/29/20 11/29/20 11/29/20 11:05 11:05 14:18 WBC RBC Hgb Hct MCV MCH MCHC RDW Plt Count MPV Immature Gran % Neutrophils % Lymphocytes % Monocytes % Eosinophils % Basophils % Nucleated RBC % Absolute Neutrophils Absolute Lymphocytes Absolute Monocytes Absolute Eosinophils Absolute Basophils RBC Morphology Polychromasia Hypochromasia Anisocytosis PT 10.8 INR 1.1 Sodium Potassium Chloride Carbon Dioxide Anion Gap BUN Creatinine Estimated GFR/1.73 m2 Glucose Calcium Magnesium Total Bilirubin AST ALT Alkaline Phosphatase Troponin I < 0.05 Total Protein Albumin COVID-19 Source SARS-CoV-2 (PCR) Patient ABO/Rh O Negative Antibody Screen NEGATIVE Crossmatch See Detail 11/29/20 11/29/20 11/30/20 17:30 18:04 06:30 WBC 6.78 RBC 2.17 L Hgb 6.2 L* Hct 19.5 L* D MCV 89.9 MCH 28.6 MCHC 31.8 L RDW 15.7 H Plt Count 152 MPV 10.7 Immature Gran % Neutrophils % Lymphocytes % Monocytes % Eosinophils % Basophils % Nucleated RBC % Absolute Neutrophils Absolute Lymphocytes Absolute Monocytes Absolute Eosinophils Absolute Basophils RBC Morphology Polychromasia Hypochromasia Anisocytosis PT INR Sodium 144 Potassium 3.9 Chloride 109 H Carbon Dioxide 29.5 Anion Gap 5.5 BUN 22 H D Creatinine 0.9 Estimated GFR/1.73 m2 >= 60.00 Glucose 93 D Calcium 8.2 L Magnesium Total Bilirubin AST ALT Alkaline Phosphatase Troponin I Total Protein Albumin COVID-19 Source Nasal/Nares SARS-CoV-2 (PCR) Negative Patient ABO/Rh Antibody Screen Crossmatch 11/30/20 06:30 WBC 5.12 RBC 2.80 L Hgb 7.8 L Hct 24.8 L D MCV 88.6 MCH 27.9 MCHC 31.5 L RDW 16.9 H Plt Count 122 L MPV 10.1 Immature Gran % 1.4 Neutrophils % 75.0 Lymphocytes % 9.8 Monocytes % 10.9 Eosinophils % 2.5 Basophils % 0.4 Nucleated RBC % 0 Absolute Neutrophils 3.84 Absolute Lymphocytes 0.50 L Absolute Monocytes 0.56 Absolute Eosinophils 0.13 Absolute Basophils 0.02 RBC Morphology Polychromasia Hypochromasia Anisocytosis PT INR Sodium Potassium Chloride Carbon Dioxide Anion Gap BUN Creatinine Estimated GFR/1.73 m2 Glucose Calcium Magnesium Total Bilirubin AST ALT Alkaline Phosphatase Troponin I Total Protein Albumin COVID-19 Source SARS-CoV-2 (PCR) Patient ABO/Rh Antibody Screen Crossmatch Reviewed Pertinent PMH: Yes
--- NOTE | 2020-11-30 11:56 | SCONE_ITS ---
Assessment and Plan Assessment and plan (1) Stage IV adenocarcinoma of pancreas: Status: Acute (2) Lower GI bleeding: Status: Acute Assessment and plan: currently stable hold elequis continue to moniter hgb please alart nursing if any acute abdominal pain or active bleeding. Patient understands that if the tumor is invading into the duodenum, and if she starts active bleeding there is probably not much that we can do to stop it and will most likely prove to be fatal. Patient is aware and understands will follow. Patient is not a candidate for EGD or colonoscopy at [facility] 60 minutes was spent in consultation (3) Acute on chronic anemia: Status: Acute (4) Metastasis to lung: Status: Acute (5) Pulmonary emboli: Status: Chronic Qualifiers: Pulmonary embolism type: other Chronicity: chronic Acute cor pulmonale presence: without acute cor pulmonale Qualified Code(s): I27.82 - Chronic pulmonary embolism (6) Chemotherapy-induced neuropathy: Status: Acute (7) Hypercoagulable state: Status: Acute History of Present Illness Narrative: pt was seen and chart reviewed and CT's reviewed on 11/29. I was privy to the conversation that were going on with [facility] and [facility]. By the time I saw the patient in the ED she was having no further bleeding She was having bright red blood per rectum. She was having no abdominal pain. I did extensively review her CT from and her last CT from 11/06. I did review Dr. Lu's notes. I did talk to Dr. Kramer regarding CP. There is no gross evidence that the tumor has eroded through into the duodenum. However the planes are very indistinct/blurry and so would be difficult to say. There is no sign of any clot within the duodenum. When I saw her down in the ER she was having no acute abdominal pain and no active hemorrhage. Today she has no abdominal pain. She is feeling significantly better. She has no nausea or vomiting. She is tolerating clear liquids. She has not had any stooling in the past 12 hours. She is passing gas Her round of chemo (gemcytobine and a biologic). Was 1 week ago. This did make her very fatigued. She has no rashes, dermatitis, no shortness of breath or pr oductive cough. She has had no diarrhea. It did make her extremely fatigued. She feels this has passed. Her CA 19/9 is trending down. She has also had multiple clotting episodes and is hypercoagulable from cancer. She was on Eliquis at home. She has a family history of pancreatic cancer. One other of her sisters of pancreatic cancer. She has a remote history of smoking in her 20s. Today she is feeling much better. Her hemoglobin is 7.8. She has not passed any further bloody stools. She is tolerating clear liquids. Patient is very realistic about her prognosis and goals of care. She was diagnosed a year ago and is still with us. She is actually looks very well and quite functional still. Consults Consult date: 11/29/20 Review of Systems All systems reviewed & are unremarkable except as noted in HPI and below PFS Medical History (Updated 11/30/20 @ 13:22 by Gita Bustos DO) Acute on chronic anemia required 1 unit prbcs due to Hgb of <7 Anemia elevated ferritin Arthritis Bacteremia Bilateral hydronephrosis Chemotherapy-induced neuropathy Colonic polyp Diverticulosis DNI (do not intubate) DNR (do not resuscitate) Fatigue Goals of care, counseling/discussion Moving to new residence has not sold Provasculon yet; will return in Dec 2020 Obesity resolved Palliative care patient Palpitations POLST (Physician Orders for Life-Sustaining Treatment) Pulmonary embolism Skin lesion Tachycardia Unintentional weight loss Surgical History S/P ACL repair left S/P lobectomy of lung removal of right lung mets from pancreatic cancer S/P thoracotomy Family History Mother , from complications of her diabetes age 80 Breast cancer Diabetes Obesity Sister No problems noted. Sister Diabetes Obesity Sister Duodenal cancer Sister , age 61 of pancreatic cancer Pancreatic cancer Obesity Sister Diabetes Obesity Daughter No problems noted. Daughter Bipolar 1 disorder Son No problems noted. Granddaughter No problems noted. Father , aged 82 from sepsis Sepsis Social History Smoking/Tobacco Use Status: Former Tobacco Use tobacco type: cigarettes Quit Date: 05/02/72 Pack-years: 6 Tobacco: How many years used: 6 Smoking risk assessment performed?: Yes Alcohol Intake: never Substance use type: does not use Caregiver/Support person: Yes Household members: spouse Housing: house Number of Children: 3 number of grandchildren: 1 Communication Needs: Corrective Lenses Education Level: college current occupation: retired dental hygienist and 4-H instructor Do you think of yourself as: straight/heterosexual Current gender identity: female What is your relationship status?: How often do you talk on the phone with friends or family?: three or more times per week How often do you get together with friends or relatives?: once per week Panel score (0-1 are the most socially isolated patients): 2 What type of physical activity do you participate in: walking and independent ambulation Duration: 15-30 minutes/day Frequency: 5-6 times per week Special tucker needs: No Seatbelt use: always Working smoke detector in home: Yes Fire extinguisher in home: Yes Do you feel safe at home: Yes Do you feel safe in your relationship?: Yes Additional Social history: to chronically ill , Tyron, who has a muscle-wasting disease attributed to his exposure to [place]. Two of her children, Clemente and Anuja, live in [place]. Her other daughter, Sherly, is planning on moving to [place], too, and enrolling in nursing school. She will live with her parents, at least initially as soon as Analilia and [place]. She and Tyron had been planning on moving to [facility] but then Analilia was diagnosed with pancreatic cancer out of the [place]. She is now on her third type of cancer-treatment. Her CA-19 is coming down--though has had some ups too. She knows her diagnosis is terminal. She wants to live fully as long as she can. Minimal pain. She had me sign an inter-state acceptable POLST form, indicating her desire to be DNR/DNI no matter where she ends up. Exam Eyes Other: No jaundice no thrush. No stomatitis. No dental abscesses. Chest Chest: normal inspection of the chest Resp Effort & Inspection: normal respiratory effort and able to speak in complete sentences Auscultation: clear to auscultation bilaterally Cardio Rate: regular rate Rhythm: regular rhythm GI Palpation: soft, nontender and No ascites Auscultation: normal bowel sounds Extrem General: no clubbing, cyanosis or edema Results Last Vital Signs Temp 36.1 C L 08/01/21 07:20 Pulse 78 11/30/20 08:00 Resp 20 11/30/20 08:01 BP 129/65 11/30/20 08:00 Pulse Ox 94 11/30/20 08:01 Labs Result diagrams: 11/30/20 06:30 11/30/20 06:30 Labs: Laboratory Results - last 24 hr 11/29/20 11/29/20 11/29/20 00:00 11:05 11:05 WBC RBC Hgb 7.3 L 4.6 L* D Hct 23.0 L 15.4 L* D MCV MCH MCHC RDW Plt Count MPV Immature Gran % Neutrophils % Lymphocytes % Monocytes % Eosinophils % Basophils % Nucleated RBC % Absolute Neutrophils Absolute Lymphocytes Absolute Monocytes Absolute Eosinophils Absolute Basophils Sodium Potassium Chloride Carbon Dioxide Anion Gap BUN Creatinine Estimated GFR/1.73 m2 Glucose Calcium Troponin I COVID-19 Source SARS-CoV-2 (PCR) Patient ABO/Rh O Negative Antibody Screen NEGATIVE Crossmatch See Detail 11/29/20 11/29/20 11/29/20 14:18 17:30 18:04 WBC 6.78 RBC 2.17 L Hgb 6.2 L* Hct 19.5 L* D MCV 89.9 MCH 28.6 MCHC 31.8 L RDW 15.7 H Plt Count 152 MPV 10.7 Immature Gran % Neutrophils % Lymphocytes % Monocytes % Eosinophils % Basophils % Nucleated RBC % Absolute Neutrophils Absolute Lymphocytes Absolute Monocytes Absolute Eosinophils Absolute Basophils Sodium Potassium Chloride Carbon Dioxide Anion Gap BUN Creatinine Estimated GFR/1.73 m2 Glucose Calcium Troponin I < 0.05 COVID-19 Source Nasal/Nares SARS-CoV-2 (PCR) Negative Patient ABO/Rh Antibody Screen Crossmatch 11/30/20 11/30/20 06:30 06:30 WBC 5.12 RBC 2.80 L Hgb 7.8 L Hct 24.8 L D MCV 88.6 MCH 27.9 MCHC 31.5 L RDW 16.9 H Plt Count 122 L MPV 10.1 Immature Gran % 1.4 Neutrophils % 75.0 Lymphocytes % 9.8 Monocytes % 10.9 Eosinophils % 2.5 Basophils % 0.4 Nucleated RBC % 0 Absolute Neutrophils 3.84 Absolute Lymphocytes 0.50 L Absolute Monocytes 0.56 Absolute Eosinophils 0.13 Absolute Basophils 0.02 Sodium 144 Potassium 3.9 Chloride 109 H Carbon Dioxide 29.5 Anion Gap 5.5 BUN 22 H D Creatinine 0.9 Estimated GFR/1.73 m2 >= 60.00 Glucose 93 D Calcium 8.2 L Troponin I COVID-19 Source SARS-CoV-2 (PCR) Patient ABO/Rh Antibody Screen Crossmatch
[2020-11-30 15:12] LABS: HCT 24.6 % (36.0-46.0); HGB 7.8 g/dL (11.2-15.7)
[2020-11-30 19:58] LABS: HCT 25.2 % (36.0-46.0); HGB 7.9 g/dL (11.2-15.7)
[2020-12-01] VITALS (11 sets, daily range): BP systolic 129; BP diastolic 80; PULSE 74–111; RESP 16; TEMP 36.5
--- NOTE | 2020-12-01 08:20 | W.PM.PROGNOT ---
Date of Service Date of service: 12/01/20 Time of Service: 08:20 Assessment and Plan Assessment and plan (1) Stage IV adenocarcinoma of pancreas: Status: Acute (2) Lower GI bleeding: Status: Acute Assessment and plan: She continues to be stable Holding Eliquis Continue to monitor H/H; Stable this morning Patient is not a candidate for EGD or colonoscopy at [facility] (3) Acute on chronic anemia: Status: Acute (4) Metastasis to lung: Status: Acute (5) Pulmonary emboli: Status: Chronic Qualifiers: Pulmonary embolism type: other Chronicity: chronic Acute cor pulmonale presence: without acute cor pulmonale Qualified Code(s): I27.82 - Chronic pulmonary embolism (6) Chemotherapy-induced neuropathy: Status: Acute (7) Hypercoagulable state: Status: Acute Subjective Subjective Interval history since last seen: Patient reports that she is feeling well. Deneis any BMs or bleeding. She denies any feelings of SOB, dizziness or light-headedness. Exam Const General: cooperative, healthy appearing and comfortable Orientation: alert and oriented x3 Resp Effort & Inspection: normal respiratory effort, no audible wheezes and no cough Objective Last Vital Signs Temp 36.0 C L 11/30/20 20:51 Pulse 78 11/30/20 23:06 Resp 18 11/30/20 20:51 BP 113/57 L 11/30/20 20:51 Pulse Ox 94 11/30/20 20:51 Laboratory Results - last 24 hr 11/30/20 11/30/20 15:03 19:50 Hgb 7.8 L 7.9 L Hct 24.6 L 25.2 L
[2020-12-01] MEDS: IRON SUCROSE COMPLEX 300 MG in Normal Saline 250 ML 132.5 MG IVPB (09:34)
--- NOTE | 2020-12-01 09:44 | INITIAL_ITS ---
- If Service Date Differs Date of service: 12/01/20 Time of Service: 09:44 Care Management Initial Assess REASON FOR HOSPITALIZATION:: Acute GI Bleeding PAST MEDICAL HISTORY/PAST SURGICAL HISTORY:: Acute on chronic anemia. required 1 unit prbcs due to Hgb of <7. Anemia. elevated ferritin. Arthritis. Bacteremia. Bilateral hydronephrosis. Chemotherapy-induced neuropathy. Colonic polyp. Diverticulosis. DNI (do not intubate). DNR (do not resuscita te). Fatigue. Goals of care, counseling/discussion. Moving to new residence. has not sold Results Scorecard yet; will return in Dec 2020. Obesity. resolved. Palliative care patient. Palpitations. Pancreatic cancer. POLST (Physician Orders for Life-Sustaining Treatment). Pulmonary embolism. Skin lesion. Tachycardia. Unintentional weight loss. S/P ACL repair. left. S/P lobectomy of lung. removal of right lung mets from pancreatic cancer. S/P thoracotomy PREVIOUS FUNCTIONAL STATUS/SOCIAL/FAMILY SUPPORTS:: Analilia resides in [place] with her , Armando. She is independent at baseline in the community. She has terminal cancer, and per MD, wishes full medical management as discussed this w/ her palliative care physician, Dr. Gan. CURRENT FUNCTIONAL STATUS:: Analilia is lying in bed when CM meets with her, she is pleasant in interaction and voices no concerns at this time. ADVANCE DIRECTIVES:: COLST: Armando as agent, Anuja Shaw (daughter) as alternate. Has patient been provided with info about the portal/API?: Yes Did the patient sign up for the portal?: Yes (Previously) CODE STATUS:: DNR/DNI INSURANCE COVERAGE / FINANCIAL ISSUES:: Medicare. /BS PRIMARY CARE PHYSICIAN:: Nubia Santana POTENTIAL DISCHARGE NEEDS:: New prescriptions, follow up appointments. PATIENT/FAMILY EDUCATION NEEDS:: Review discharge instructions, discuss Ask Me Three. ANTICIPATED BARRIERS TO DISCHARGE:: None identified. TRANSPORTATION:: Via private vehicle will her . PLAN:: Analilia will return home when ready per MD. She will follow up with her PCP and plan of care as prescribed. Analilia will transport via private vehicle with her , Armando.
[2020-12-01 11:43] LABS: HCT 31.2 % (36.0-46.0); HGB 9.9 g/dL (11.2-15.7)
--- NOTE | 2020-12-01 14:03 | CHAPLAIN ---
Analilia and I remembered each other from a previous admission. She told me about her GI bleed, which she thinks is in her lower colon somewhere. She is being treated for pancreatic cancer. Analilia and her are planning to move to [place], [place] to be closer to their three children who can provide some support. She said she knows they need to downsize and prepare how to best deal with their day to day needs.
--- NOTE | 2020-12-01 14:16 | W.PM.PROGNOT ---
Date of Service Date of service: 12/01/20 Time of Service: 14:16 Assessment and Plan Assessment and plan (1) Lower GI bleeding: Status: Acute Assessment and plan: No further GI bleeding and stable hemoglobin. continue to hold her Apixaban for at least 72 hrs post bleed and then start the patient on unfractionated heparin per IV for 24 hours and if no bleeding she can be discharged home on apixaban. Follow-up outpatient with GI at [facility] (2) Acute on chronic anemia: Status: Acute Assessment and plan: improved after transfusion of 3rd unit of PRBC. Will put her on iron supplementation (Venofer). cont. GI protection w/ Protonix (3) Pulmonary emboli: Status: Chronic Assessment and plan: Eliquis to be kept on hold for 72 hours until we are sure there is no further bleeding. Then resume anticoagulation with systemic heparin and if no further bleeding she can go home on Eliquis Qualifiers: Pulmonary embolism type: other Chronicity: chronic Acute cor pulmonale presence: without acute cor pulmonale Qualified Code(s): I27.82 - Chronic pulmonary embolism (4) Pancreatic cancer: Status: Deleted Assessment and plan: Follow-up with Dr. Lu upon discharge Qualifiers: Pancreatic malignancy location: head of pancreas Qualified Code(s): C25.0 - Malignant neoplasm of head of pancreas (5) DNR (do not resuscitate): Status: Acute Assessment and plan: Patient is a DNR in the event of cardiopulmonary arrest but wishes full medical management otherwise. I have confirmed her wishes. She has discussed this w/ her palliative care physician, Dr. Gan. Subjective Subjective Interval history since last seen: Patient's had no further bleeding. She did state that yesterday she had a spot of dark blood with her bowel movement but no bright red rectal bleeding. Hemoglobin hematocrit remained stable. Hemoglobin is currently 7.9 g. She denies any nausea or vomiting or abdominal pain. No shortness of breath or chest pain. I explained to her that the plan based on my conversations with GI and heme-onc at [facility] is to keep her off her apixaban for 72 hours then start her on unfractionated systemic heparin drip for 24 hours and if no further bleeding she can go back on her apixaban. However she does need follow-up as an outpatient with GI at [facility]. Exam Narrative Exam Narrative: Pleasant elderly white female who is alert and oriented person place time circumstance and up in her bed. No acute distress. Lungs are clear to auscultation heart regular rate and rhythm abdomen soft nontender nondistended normal active bowel sounds extremities without peripheral cyanosis or edema Objective Last Vital Signs Temp 36.0 C L 11/30/20 20:51 Pulse 78 11/30/20 23:06 Resp 18 11/30/20 20:51 BP 113/57 L 11/30/20 20:51 Pulse Ox 94 11/30/20 20:51 Laboratory Results - last 24 hr 11/30/20 11/30/20 12/01/20 15:03 19:50 11:37 Hgb 7.8 L 7.9 L 9.9 L Hct 24.6 L 25.2 L 31.2 L D
[2020-12-01] MEDS: Pantoprazole 40 MG TABCR PO (17:51)
[2020-12-02] VITALS (18 sets, daily range): BP systolic 110–131; BP diastolic 56–77; PULSE 79–90; RESP 16–32; TEMP 35.6–36.5; O2SAT 92–98
[2020-12-02 07:09] LABS: HCT 27.8 % (36.0-46.0); HGB 8.7 g/dL (11.2-15.7)
--- NOTE | 2020-12-02 08:14 | NUR.NOTE ---
RN places APTT ordered prior to commencement of Heparin drip.Nursing Note:
--- NOTE | 2020-12-02 08:18 | PGE_ITS ---
Documented by User: GALO Pierce 12/02/20 08:21 Date of Service Date of service: 12/02/20 Time of Service: 08:18 Assessment and Plan Assessment and plan (1) Stage IV adenocarcinoma of pancreas: Status: Acute (2) Lower GI bleeding: Status: Acute Assessment and plan: She continues to be stable, no active bleeding The hospitalist is starting Heparin today Continue to monitor H/H; Patient is not a candidate for EGD or colonoscopy at [facility] (3) Acute on chronic anemia: Status: Acute (4) Metastasis to lung: Status: Acute (5) Pulmonary emboli: Status: Chronic Qualifiers: Acute cor pulmonale presence: without acute cor pulmonale Chronicity: chronic Pulmonary embolism type: other Qualified Code(s): I27.82 - Chronic pulmonary embolism (6) Chemotherapy-induced neuropathy: Status: Acute (7) Hypercoagulable state: Status: Acute Subjective Subjective Interval history since last seen: Patient reports she continues to feel well. denies having any bleeding. Exam Const General: cooperative, healthy appearing and comfortable Orientation: alert and oriented x3 Resp Effort & Inspection: normal respiratory effort, no audible wheezes and no cough Objective Last Vital Signs Temp 36.4 C L 12/02/20 05:40 Pulse 79 12/02/20 05:56 Resp 16 12/02/20 05:40 BP 119/75 12/02/20 05:56 Pulse Ox 92 12/02/20 05:55 Laboratory Results - last 24 hr 12/01/20 12/02/20 11:37 06:08 Hgb 9.9 L 8.7 L Hct 31.2 L D 27.8 L Documented by User: Gita Bustos DO 12/02/20 15:25 Assessment and Plan Assessment and plan (1) Stage IV adenocarcinoma of pancreas: Status: Acute (2) Lower GI bleeding: Status: Acute (3) Acute on chronic anemia: Status: Acute (4) Metastasis to lung: Status: Acute (5) Hypercoagulable state: Status: Acute Assessment and plan: Patient had one small black bowel movement earlier today. She is not had any further bleeding. She is tolerating regular diet. She has no chest pain or shortness of breath. She is not coughing up any blood. She has no pain or swelling in her legs. The heparin is going to be started later this afternoon. And we will monitor and see what happens in the next 48 hours as far as bleeding. And we will continue to follow. (6) Pulmonary embolism: Status: Chronic
[2020-12-02] MEDS: IRON SUCROSE COMPLEX 300 MG in Normal Saline 250 ML 167 MG IVPB (08:29)
[2020-12-02] MEDS: Normal Saline Flush 10 ML SYR IVP ×2 (08:30→14:55)
[2020-12-02] MEDS: Pantoprazole 40 MG TABCR PO (08:33)
--- NOTE | 2020-12-02 08:34 | NUR.NOTE ---
Lab draws APTT.Nursing Note:
[2020-12-02 08:55] LABS: PTT Activated 24.6 sec (21.0-27.5)
--- NOTE | 2020-12-02 09:08 | PDOC.CMPRO ---
- If Service Date Differs Date of service: 12/02/20 Time of Service: 09:08 Care Management Progress Note S/O: Analilia remains in the ICU at this time, she is lying in bed and reports she is awaiting repeat labs to determine if anticoagulation will be restarted. She verbalizes understanding of her treatment plan at this time and shares no additional concerns. She reports speaking with Dr. Gan this morning which she states is always great. CM continues to follow. No change to overall plan. A: 70 year old female admitted to [facility] 11/29/20 for Acute GI bleeding P: Analilia remains in the ICU; anticoagulation will restart today per MD. She continues to be monitored closely, anticipate with continued stability she will be discharged home tomorrow. CM continues to follow.
--- NOTE | 2020-12-02 09:51 | W.NUTCONSULT ---
Date of service: 12/02/20 Time of Service: 09:51 Nutritional Consult ASSESSMENT: 70 year old female admitted to ICU with acute GI bleed with hx of pulmonary embolism, stage 4 pancreatic cancer with lung mets with significant weight loss in last 90 days. Current BMI wnl. Meds include 15 mg remeron. Following regular meal plan with excellent intake (> 75% of meals). Currently meeting macronutrient and fluid needs for weight maintenance. NUTRITIONAL DIAGNOSIS: moderate malnutrition as evidenced by 7% weight loss in last 90 days INTERVENTION: continue current meal plan provide ensure as needed MONITORING AND EVALUATION: weight, po intake, labs Time Spent in Nutritional Counseling and Treatment: 5
--- NOTE | 2020-12-02 13:12 | NUR.NOTE ---
in shop service technician draws patient's Hgb.Nursing Note:
[2020-12-02 13:24] LABS: HCT 30.3 % (36.0-46.0); HGB 9.4 g/dL (11.2-15.7)
--- NOTE | 2020-12-02 14:31 | NUR.NOTE ---
RN send Dr. Pereira a SNPP message requesting permission to start Heparin drip given Hgb value of 9.4. Nursing Note:
--- NOTE | 2020-12-02 14:55 | PCNE_ITS ---
Date of service: 12/02/20 Time of Service: 09:55 History of Present Illness History of Present Illness Chief Complaint: acute on chronic anemia, GI bleed, pancreatic cancer Narrative: Analilia is an established palliative care patient of mine that I have been seeing for her stage IV pancreatic cancer and goals of care. She reports that she was admitted on 11/29 through the ER for extreme exhaustion, weakness, and bloody stool. On admission, she was found to have a hemoglobin of 4.6. She does not describe bright red blood per rectum; she describes instead soft formed stools intermixed with blood. These were seen on the day of admission. She has had very little stool output since admission. This am, she had a very small formed stool that left a pink tinge in the accompanying urine. Since admission, Analilia has received 3 units of prbs, IV iron and a PPI. Her DOAC, which was started in June when she was found to have multiple small PEs due to her malignancy, was held. She was waiting for a 1 pm blood draw to see if she could have a trial of heparin in anticipation of her going back on her DOAC. She is quite bright and understands complex medical decision making. We discussed her proposed referral to [facility] [place] for possible upper and lower endoscopies. I asked her what she would do if the lower scope showed she had a colon cancer; she would not want to pursue cancer or surgical treatment for this. We discussed that fact that diverticular bleeds usually stop on their own; she would not be open to having a partial colectomy if the bleeding became profuse. As for the possibility of an upper bleed, this seems much less likely as the blood was bright red in color, not dark. She understands that her life expectancy is limited. She was told in June that she only had 3-4 months left to live. She has already passed that prognosis. She wants to head out to [place] to be with her children and as soon as she can; she has been scheduled to leave on December 08. She is due to see her oncologist, Dr Star Lu this coming Tuesday. She is very willing to receive aggressive palliative interventions, including blood transfusions and IV iron. She is interested in treatments and interventions that make her feel better and allow her to achieve her goals. She is not interested in other testing or treatment--though she is still receiving some treatment for her pancreatic cancer. She is worried, with good cause, that her chemotherapy contributed to why her hemoglobin was so low despite moderate and short-lasting GI bleeding. I suspect she is right. She will discuss this with oncology on Tuesday. Assessment and Plan Assessment and plan (1) Metastasis to lung: Status: Acute Assessment and plan: Until the metastasis was found, several months after her initial pancreatic cancer diagnosis. Analilia had hoped that she would be able to have a Whipple. She was disappointed to learn earlier this year that she could not; she has not perseverated about this. She is quite accepting of whatever comes her way. She has great kirk. She was not in any respiratory distress during my visit. No coughing. No dyspnea at rest. She did not get up to move. I suspect that will cause some respiratory distress. (2) Stage IV adenocarcinoma of pancreas: Status: Acute Assessment and plan: Sees Dr Lu. Due to have f/u this Tuesday. She is worried that most of her anemia has been caused by her cancer treatment, not by her bleeding. To be discussed with her oncologist. IF this is true, she recognizes that she will have to stop cancer treatment. She is currently on her 3rd or 4th line treatment. (3) Lower GI bleeding: Status: Acute Assessment and plan: Has stopped for the most part. (Pinkish fluid around her small hard stool noted this am). Will have heparin trial starting this afternoon and lasting 24 hrs to see if she can go back on a blood thinner upon discharge. (4) Acute on chronic anemia: Status: Acute Assessment and plan: Mixed causes: cancer treatment and ? diverticular bleed and overanticagularion with DOAC. Feels much better with her 3 units prbcs and her IV iron. Hoping to be discharged as soon as possible. (5) Pulmonary emboli: Status: Chronic Assessment and plan: Found on CT in June after an episode of severe dyspnea. Has been on DOAC since then. Would prefer not to have PEs again---knows she is between a rock and a hard place weighing risk of GI bleeding with risk of recurrent PEs. Qualifiers: Pulmonary embolism type: other Chronicity: chronic Acute cor pulmonale presence: without acute cor pulmonale Qualified Code(s): I27.82 - Chronic pulmonary embolism (6) Fatigue: Status: Acute Assessment and plan: Better today. Says that she has had 8 treatments with current cancer regimen. First 5 were easy for her. Last 3, she has grown increasingly fatigued. Not sure that this s/e is tolerable, given her goals of care leading her toward palliative interventions. (7) Unintentional weight loss: Status: Acute Assessment and plan: Due to her cancer. Previously obese. (8) Goals of care, counseling/discussion: Status: Acute (9) Palliative care patient: Status: Acute (10) Blood transfusion during current hospitalization: Status: Acute Review of Systems Constitutional Constitutional: Reports fatigue, Reports lethargy (though it is fast improving since she received blood and iron), Reports poor appetite, Reports weakness and Reports weight loss Eyes Eyes: Reports requires corrective lenses ENT Ears, Nose, Mouth, and Throat: Reports disequilibrium Cardiovascular Cardiovascular: Reports dyspnea on exertion (hasn't been OOB since admission; would like to get up and about) Respiratory Respiratory: Reports dyspnea on exertion (hasn't been OOB since admission; would like to get up and about) Gastrointestinal Gastrointestinal: Denies abdominal pain, Denies melena, Denies hematochezia, Reports change in stool character, Reports early satiety, Reports loose stools (some blood intermixed on admission), Denies nausea and Denies hematemesis Genitourinary Genitourinary: Denies abnormal vaginal bleeding Musculoskeletal Musculoskeletal: Reports atrophy and Reports muscle weakness Integumentary/Breasts Skin/Breast: Reports dry skin, Denies rash and Denies unusual bruising Neurologic Neurologic: Reports disequilibrium and Reports weakness Psychiatric Psychiatric: Denies anxiety, Denies depression, Reports difficulty concentrating, Denies hopelessness, Denies irritability and Denies anhedonia Endocrine Endocrine: Reports fatigue Hematologic/Lymphatic Hematologic/Lymphatic: Reports easy bleeding (at time of admission) [facility] Medical History (Updated 12/02/20 @ 16:43 by Gloria Gan MD) Acute on chronic anemia Anemia elevated ferritin Arthritis Bacteremia Bilateral hydronephrosis Blood transfusion during current hospitalization 3 units as inpatient Chemotherapy-induced neuropathy Colonic polyp Diverticulosis DNI (do not intubate) DNR (do not resuscitate) Fatigue Goals of care, counseling/discussion Moving to new residence has not sold [email or web address] yet; will return in Dec 2020 Obesity resolved Palliative care patient Palpitations POLST (Physician Orders for Life-Sustaining Treatment) Pulmonary embolism Skin lesion Tachycardia Unintentional weight loss Surgical History S/P ACL repair left S/P lobectomy of lung removal of right lung mets from pancreatic cancer S/P thoracotomy Family History Mother , from complications of her diabetes age 80 Breast cancer Diabetes Obesity Sister No problems noted. Sister Diabetes Obesity Sister Duodenal cancer Sister , age 61 of pancreatic cancer Pancreatic cancer Obesity Sister Diabetes Obesity Daughter No problems noted. Daughter Bipolar 1 disorder Son No problems noted. Granddaughter No problems noted. Father , aged 82 from sepsis Sepsis Social History Smoking/Tobacco Use Status: Former Tobacco Use tobacco type: cigarettes Quit Date: 05/02/72 Pack-years: 6 Tobacco: How many years used: 6 Smoking risk assessment performed?: Yes Alcohol Intake: never Substance use type: does not use Caregiver/Support person: Yes Household members: spouse Housing: house Number of Children: 3 number of grandchildren: 1 Communication Needs: Corrective Lenses Education Level: college current occupation: retired dental hygienist and 4-H instructor Do you think of yourself as: straight/heterosexual Current gender identity: female What is your relationship status?: How often do you talk on the phone with friends or family?: three or more times per week How often do you get together with friends or relatives?: once per week Panel score (0-1 are the most socially isolated patients): 2 What type of physical activity do you participate in: walking and independent ambulation Duration: 15-30 minutes/day Frequency: 5-6 times per week Special tucker needs: No Seatbelt use: always Working smoke detector in home: Yes Fire extinguisher in home: Yes Do you feel safe at home: Yes Do you feel safe in your relationship?: Yes Additional Social history: to chronically ill , Tyron, who has a muscle-wasting disease attributed to his exposure to [place]. Two of her children, Clemente and Anuja, live in [place]. Her other daughter, Sherly, is planning on moving to [place], too, and enrolling in nursing school. She will live with her parents, at least initially as soon as Analilia and Tyron move out west. She and Tyron had been planning on moving to [facility] but then Analilia was diagnosed with pancreatic cancer out of the [place]. She is now on her third type of cancer-treatment. Her CA-19 is coming down--though has had some ups too. She knows her diagnosis is terminal. She wants to live fully as long as she can. Minimal pain. She had me sign an inter-state acceptable POLST form, indicating her desire to be DNR/DNI no matter where she ends up. Exam Narrative Exam Narrative: General: Normal weight woman, looks younger than stated age, alert and oriented, in NAD, sitting up in her ICU bed. Eyes: wearing glasses, EOMI, anicteric HEENT: no JVD, no LAD, neck supple Lungs: crackles at bases bilateral posterior lobes, no increased WOB Heart: regular, soft murmur loudest at LLSB Abd: soft, NT, ND, +BS Ext: no obvious bruising, trace bilateral LE edema Neuro: oriented, alert, no cognitive impairment, speech and movement wnl Psych: Reports she is not afraid. Would like to make plans to drive out to [place] sooner rather than later. Wants to have plan in place IN CASE she has a GI bleed again. Skin: still pale, but not as pale as she was on admission.... Results Last Vital Signs Temp 97.5 F L 12/02/20 12:06 Pulse 85 12/02/20 12:06 Resp 20 12/02/20 12:06 BP 131/77 12/02/20 12:06 Pulse Ox 96 12/02/20 12:06 Labs Result diagrams: 12/02/20 13:10 11/30/20 06:30 Labs: Laboratory Results - last 24 hr 12/02/20 12/02/20 12/02/20 06:08 08:32 13:10 Hgb 8.7 L 9.4 L Hct 27.8 L 30.3 L APTT 24.6
--- NOTE | 2020-12-02 17:56 | W.PM.PROGNOT ---
Date of Service Date of service: 12/02/20 Time of Service: 17:57 Assessment and Plan Assessment and plan (1) Stage IV adenocarcinoma of pancreas: Status: Acute Assessment and plan: Patient seen by palliative care and goals of treatments reviewed. She very aware and accepting of her poor prognosis. Her main goal is optimizing quality of life for the projected short future ahead of her. (2) Lower GI bleeding: Status: Acute Assessment and plan: She declines any endoscopy or further work up as to the cause. Likely diverticular vs small bowel bleed. (3) Acute on chronic anemia: Status: Acute Assessment and plan: Hgb now stabilized. Repeat in the AM (4) Pulmonary emboli: Status: Chronic Assessment and plan: On Eliquis; being held d/t GI bleed. Now that Hgb appears to have stabilized / bleeding resolved, heparin drip initiated and will run for 24H. If no bleeding noted, then home on Eliquis. Qualifiers: Pulmonary embolism type: other Chronicity: chronic Acute cor pulmonale presence: without acute cor pulmonale Qualified Code(s): I27.82 - Chronic pulmonary embolism Subjective Subjective Patient reports: no new complaints, tolerating a regular diet, blood in stool (tinge of pinkish blood noted on stool.) and afebrile; denies diarrhea, nausea, vomiting and shortness of breath Exam Const General: cooperative and no acute distress Nutritional Appearance: average body habitus Orientation: alert and oriented x3 Resp Effort & Inspection: normal respiratory effort Auscultation: clear to auscultation bilaterally Cardio Rate: regular rate Rhythm: regular rhythm Heart Sounds: S1 normal and S2 normal GI Palpation: soft and nontender Auscultation: normal bowel sounds Extrem General: no pedal edema and no calf tenderness Psych Appearance: grossly normal Mental Status: mental status grossly normal Speech and Movement: speech and movement normal Affect: normal affect Objective Last Vital Signs Temp 36.5 C 12/02/20 16:29 Pulse 89 12/02/20 15:01 Resp 20 12/02/20 15:01 BP 110/59 L 12/02/20 15:01 Pulse Ox 95 12/02/20 15:01 Laboratory Results - last 24 hr 12/02/20 12/02/20 12/02/20 06:08 08:32 13:10 Hgb 8.7 L 9.4 L Hct 27.8 L 30.3 L APTT 24.6
--- NOTE | 2020-12-02 21:15 | NUR.NOTE ---
Nursing Note: wind turbine service technician draws patient's APTT.
[2020-12-02 21:41] LABS: PTT Activated 68.3 sec (21.0-27.5)
[2020-12-03] VITALS (8 sets, daily range): BP systolic 117–136; BP diastolic 62–69; PULSE 76–84; RESP 14; TEMP 36.6; O2SAT 92–94
[2020-12-03 04:52] LABS: HCT 26.9 % (36.0-46.0); HGB 8.4 g/dL (11.2-15.7)
[2020-12-03 05:10] LABS: PTT Activated 73.5 sec (21.0-27.5)
[2020-12-03] MEDS: Pantoprazole 40 MG TABCR PO (08:22)
--- NOTE | 2020-12-03 09:08 | PDOC.CMDIS ---
- If Service Date Differs Date of service: 12/03/20 Time of Service: 09:08 LACE Index Scoring Tool - Questions: Length of Stay (in days): 4 - 6 Acuity (Admit via E.D.?): Yes Comorbidities: Metastatic Solid Tumor E.D. Visits: 3 - Answers: Total Score: 15 Risk of Readmission: High Risk Care Management Discharge Reason for Hospitalization: Acute GI Bleeding Discharge Plan: Analilia will discharge home when ready per MD, no additional services anticipated at this time. She will transport via private vehicle with her , Armando, follow up with her PCP and plan of care as prescribed. Patient/Family Education Needs: Review discharge instructions, discuss Ask Me Three.
--- NOTE | 2020-12-03 11:13 | DSE_ITS ---
Date of service: 12/03/20 Time of Service: 11:14 DS: Diagnosis Discharge Diagnosis (1) Stage IV adenocarcinoma of pancreas: Status: Acute (2) Lower GI bleeding: Status: Acute (3) Acute on chronic anemia: Status: Acute (4) Pulmonary emboli: Status: Chronic Discharge Plan Disposition Patient Disposition: HOME Condition: Improving Discharge Details Reason For Visit: Acute GI Bleeding Admit Date/Time: 11/29/20 16:33 Admit Provider: Vincent Arreola Attending Provider: Vincent Arreola Primary Care Provider: Nubia Santana V Hospital Course Hospital Course: 70 yr old female w/ stage 4 pancreatic cancer w/ lung mets who was diagnosed in July 2019 w/ stage 2 pancreatic cancer but after extensive workup was found to have stage 4 disease and has been under chemotherapy w/ Abraxane/Gemzar and who had bilateral ureteral stents place last week, and her cancer has been complicated by pulmonary emboli discovered during restaging CT scans in June 2020 and has been on Apixaban presented to the ER w/ bright red rectal bleeding that began around 9 am on day of admission. She had three episodes of bright red bleeding. On arrival to the ER she was tachycardic at 118 bpm but not hypotensive (BP 138/53) but was found to be profoundly anemic w/ Hb 4.6 gm. Note she was also anemic w/ Hb of 6.8 gm a week ago when she was transfused 1 unit during her chemotherapy on 11/21. She has felt weak and lightheaded ever since her cystoscopy and bilateral ureteral stenting done on 11/27. She denies any hx of diverticulitis or PUD. She denies any current abdominal pains nor fevers or rigors. CT of her abdomen and pelvis were done w/ contrast and demonstrated the following: Increased size of posterior basilar densities. Increased pulmonary nodules in both upper and lower lobes, consistent with metastatic disease. Persistent pulmonary emboli. No visible recurrence pancreatic mass or adenopathy. New left hydronephrosis. New left renal vein thrombosis. Her Eliquis was held. General surgery consulted but patient desires no endoscopy. She is a palliative care patient and Dr. Gan, with palliative medicine, was consulted and the patients goals of care were reinforced. She is OK with blood transfusions if necessary. Her hemoglobin values were variable: 6.2 > transfused > 7.8 > 7.9 > 9.9 > 8.7 > 9.4 > 8.4. The decision was made to resume anticoagulation with IV heparin for 24 hours. She did have a bowel movement during that time. The toilet water was blood tinged but no gross blood noted on the stool. Eliquis will be restarted on the night of discharge. She will continued to follow her hemoglobin with oncology and is satisfied with intermittent outpt blood transfusions if necessary. Cont to f/u with oncology; has appt on 11/04/2020. Home Meds and New Rx's Prescriptions: Continued albuterol sulfate 90 mcg/actuation HFA aerosol inhaler 2 puff inhalation Q6H PRN (Reason: shortness of breath or wheezing) Qty: 8.5 RF: 0 senna 8.6 mg capsule 8.6 mg PO DAILY RF: 0 loratadine 10 mg Tablet 10 mg PO QAM RF: 0 ondansetron 8 mg tablet,disintegrating 8 mg translingual Q8H PRN PRNRF: 0 famotidine 20 mg tablet 20 mg PO BID PRNRF: 0 Creon 24,000-76,000 -120,000 unit capsule,delayed release(DR/EC) See Rx Instructions .ROUTE .COMPLEX RF: 0 cyanocobalamin (vitamin B-12) [Vitamin B-12] 1,000 mcg Tablet 1,000 mcg PO DAILY RF: 0 Eliquis DVT-PE Treat 30D Start 5 mg (74 tabs) tablets,dose pack See Rx Instructions .ROUTE .COMPLEX Qty: 74 RF: 0 mirtazapine 15 mg tablet 15 mg PO QHS PRNRF: 0 Discharge Instructions Activity:: Activity as Tolerated Equipment/Supplies:: No Equipment Needed Diet:: Normal Diet Discharge Orders Discharge Orders: Discharge Order (Routine); Ordered 12/03/20 Ordered By: Mannie Pereira DS: Summary Time Spent with Patient providing and/or coordinating discharge services: Greater than 30 minutes Status at Discharge Functional status at discharge: independent ambulation Overall status at discharge: patient is back to baseline Mental Status: mental status grossly normal Speech and Movement: speech and movement normal Mood: congruent mood Affect: normal affect Exam Const General: cooperative and no acute distress Nutritional Appearance: average body habitus Orientation: alert and oriented x3 Resp Effort & Inspection: normal respiratory effort Auscultation: clear to auscultation bilaterally Cardio Rate: regular rate Rhythm: regular rhythm Heart Sounds: S1 normal and S2 normal GI Palpation: soft and nontender Auscultation: normal bowel sounds Extrem General: no pedal edema and no calf tenderness Psych Appearance: grossly normal Mental Status: mental status grossly normal Speech and Movement: speech and movement normal Mood: congruent mood Affect: normal affect DS: Data Vitals/I&O Vitals and I&O: Vital Signs Temperature 36.6 C 12/03/20 08:00 Temperature Source Temporal Artery Scan 12/03/20 08:15 Pulse 80 12/03/20 08:15 Pulse Rhythm Regular 12/03/20 08:15 Pulse 86 12/01/20 08:00 Respiratory Rate 14 12/03/20 08:15 Respiratory Effort Non-Labored 12/03/20 08:15 Respiratory Depth Normal 12/03/20 08:15 Respiratory Pattern Normal 12/03/20 08:15 Blood Pressure 133/69 12/03/20 08:15 Blood Pressure Mean 78 12/03/20 04:26 Blood Pressure Position Supine 11/30/20 20:51 Pulse Oximetry 94 12/03/20 08:15 Oxygen Delivery Method Room Air 12/03/20 08:15 Oxygen Flow Rate 0 12/03/20 08:15 Pain Level 0 12/03/20 08:15 Comment 11/29/20 11:44 Intake & Output 12/02/20 12/02/20 12/03/20 11:59 23:59 11:59 Intake Total 465 / 793.4 328.4 / 793.4 97 / 97 Output Total 1325 / 1925 600 / 1925 750 / 750 Balance -860 / -1131.6 -271.6 / -1131.6 -653 / -653 Weight 69.8 kg 66.8 kg Intake: IV 265 / 353.4 88.4 / 353.4 97 / 97 Oral 200 / 440 240 / 440 Output: Urine 1325 / 1925 600 / 1925 750 / 750 Other: Urine Color Yellow Yellow Yellow Urine Appearance Clear Urine Odor None Comment voided on commode urine mixed with stool Stool Occult Blood Positive Stool Size Moderate Moderate Stool Characteristics Formed Formed Brown Black Voiding Methods Bedside Commode Data Completed and Pending Labs on day of discharge: Labs from last 24 hours 12/03/20 12/03/20 12/03/20 11:35 04:28 04:28 Hgb 8.4 L Hct 26.9 L APTT Pending 73.5 H 12/02/20 12/02/20 21:12 13:10 Hgb 9.4 L Hct 30.3 L APTT 68.3 H [facility] Medical History Acute on chronic anemia Anemia elevated ferritin Arthritis Bacteremia Bilateral hydronephrosis Blood transfusion during current hospitalization 3 units as inpatient Chemotherapy-induced neuropathy Colonic polyp Diverticulosis DNI (do not intubate) DNR (do not resuscitate) Fatigue Goals of care, counseling/discussion Moving to new residence has not sold [employer] yet; will return in Dec 2020 Obesity resolved Palliative care patient Palpitations POLST (Physician Orders for Life-Sustaining Treatment) Pulmonary embolism Skin lesion Tachycardia Unintentional weight loss Surgical History S/P ACL repair left S/P lobectomy of lung removal of right lung mets from pancreatic cancer S/P thoracotomy Family History Mother , from complications of her diabetes age 80 Breast cancer Diabetes Obesity Sister No problems noted. Sister Diabetes Obesity Sister Duodenal cancer Sister , age 61 of pancreatic cancer Pancreatic cancer Obesity Sister Diabetes Obesity Daughter No problems noted. Daughter Bipolar 1 disorder Son No problems noted. Granddaughter No problems noted. Father , aged 82 from sepsis Sepsis Social History Smoking/Tobacco Use Status: Former Tobacco Use tobacco type: cigarettes Quit Date: 05/02/72 Pack-years: 6 Tobacco: How many years used: 6 Smoking risk assessment performed?: Yes Alcohol Intake: never Substance use type: does not use Caregiver/Support person: Yes Household members: spouse Housing: house Number of Children: 3 number of grandchildren: 1 Communication Needs: Corrective Lenses Education Level: college current occupation: retired dental hygienist and 4-H instructor Do you think of yourself as: straight/heterosexual Current gender identity: female What is your relationship status?: How often do you talk on the phone with friends or family?: three or more times per week How often do you get together with friends or relatives?: once per week Panel score (0-1 are the most socially isolated patients): 2 What type of physical activity do you participate in: walking and independent ambulation Duration: 15-30 minutes/day Frequency: 5-6 times per week Special tucker needs: No Seatbelt use: always Working smoke detector in home: Yes Fire extinguisher in home: Yes Do you feel safe at home: Yes Do you feel safe in your relationship?: Yes Additional Social history: to chronically ill , Tyron, who has a muscle-wasting disease attributed to his exposure to [place]. Two of her children, Clemente and Anuja, live in [place]. Her other daughter, Sherly, is planning on moving to [place], too, and enrolling in nursing school. She will live with her parents, at least initially as soon as Analilia and Tyron move out west. She and Tyron had been planning on moving to [facility] but then Analilia was diagnosed with pancreatic cancer out of the [place]. She is now on her third type of cancer-treatment. Her CA-19 is coming down--though has had some ups too. She knows her diagnosis is terminal. She wants to live fully as long as she can. Minimal pain. She had me sign an inter-state acceptable POLST form, indicating her desire to be DNR/DNI no matter where she ends up.
[2020-12-03 11:51] LABS: PTT Activated 44.8 sec (21.0-27.5)
== END 2020-12-03 13:18 | disposition home or self-care (01) | DRG 378 ==
LOC: ER 17:23 → ICU 17:43
PROVIDERS: Family Medicine; Admitting Provider Internal Medicine; Emergency Provider Physician Assistant; PCP Family Medicine; Visit Provider Internal Medicine
DX: K62.5 Hemorrhage of anus and rectum (principal); I27.82 Chronic pulmonary embolism; C25.0 Malignant neoplasm of head of pancreas; C78.01 Secondary malignant neoplasm of right lung; D68.59 Other primary thrombophilia; Z79.01 Long term (current) use of anticoagulants; Z66 Do not resuscitate; G70.1 Toxic myoneural disorders; T45.1X5A Adverse effect of antineoplastic and immunosuppressive drugs, initial encounter
CPT/HCPCS: 36410; 36415; 36430; 80048; 80053; 85027; 86850; 86900; 86901; 86920; 87635; 93005; 96361; 96374; 99222; 99232; 99285; 74177; 83735; 84484; 85014; 85018; 85025; 85610; 85730; 93010; 99223; 99231; 99239; J1756; J3490; P9016

== ENCOUNTER 2020-12-05 05:18 | Outpatient (RCR) | payer MEDICARE, BC, SELFPAY ==
[2020-11-30 00:23] VITALS: BP 123/74; PULSE 81; RESP 16; TEMP 37.2
[2020-12-05] MEDS: Normal Saline Flush 10 ML SYR IVP (09:09)
[2020-12-05 09:24] LABS: Absolute Basophil Count 0.03 10^3/uL (0.0-0.2); Absolute Eosinophil Count 0.14 10^3/uL (0.0-0.7); Absolute Lymphocyte Count 0.62 10^3/uL (1.2-3.4); Absolute Monocyte Count 0.81 10^3/uL (0.1-0.8); Absolute Neutrophil Count 9.72 10^3/uL (1.2-6.7); Basophils % 0.3; Eosinophils % 1.2; HCT 30.3 % (36.0-46.0); HGB 9.4 g/dL (11.2-15.7); Immature Grans % 0.9; Lymphocytes % 5.4; MCH 28.3 pg (27.0-33.0); MCV 91.3 fL (80-95); MPV 10.2 fL (8.0-11.0); Monocytes % 7.1; Neutrophils % 85.1; Nucleated RBC 0 %; Platelet Count 283 10^3/uL (130-400); RBC 3.32 10^6/uL (3.93-5.22); RDW 17.2 % (11.7-14.6); RDW-SD 55.2 fL; WBC 11.42 10^3/uL (4.4-10.8)
[2020-12-05 09:36] LABS: ALT 25 U/L (14-59); AST 23 U/L (15-37); Albumin 3.2 g/dL (3.4-5.0); Alkaline Phosphatase 195 U/L (46-116); Anion Gap 8.9 mmol/L (3-11); BUN 17 mg/dL (7-18); Bilirubin, Total 0.7 mg/dL (0.2-1.0); CO2 26.1 mmol/L (21.0-32.0); CREATININE 1.1 mg/dL (0.55-1.02); Calcium 8.8 mg/dL (8.5-10.1); Chloride 102 mmol/L (98-107); Estimated GFR 48.82 (mL/min/1.73m2); Glucose 190 mg/dL (74-106); Potassium 3.9 mmol/L (3.5-5.1); Sodium 137 mmol/L (136-145); Total Protein 6.9 g/dL (6.4-8.2)
[2020-12-08 15:18] LABS: CA 19-9 23883 U/mL (<35)
== END 2020-12-30 23:59 | disposition home or self-care (01) ==
LOC: INF 05:18
PROVIDERS: PCP Family Medicine; Visit Provider Internal Medicine Hematology & Oncology
DX: C25.0 Malignant neoplasm of head of pancreas (principal); C78.02 Secondary malignant neoplasm of left lung; Z45.2 Encounter for adjustment and management of vascular access device
CPT/HCPCS: 36591; 80053; 85025; 86301

== ENCOUNTER 2021-01-06 21:02 | Outpatient (CLI) | payer MEDICARE, BC, SELFPAY ==
[2021-01-06] MEDS: Omnipaque 350 MG/ML 50 ML BTL PO (13:53)
[2021-01-06] MEDS: Breeza Beverage 473 ML BTL PO ×2 (13:54→13:55)
--- NOTE | 2021-01-06 15:19 | DI.CT_ITS ---
Exam(s) CT CHEST/ABD/PEL WO EXAM: CT CHEST/ABD/PEL WO CLINICAL HISTORY: STAGE IV PANCREATIC CA, LUNG METS, INCREASED DYSPNEA, RESTAGING. TECHNIQUE: Imaging Protocol: Axial computed tomography images with coronal and sagittal reformatted images were created and reviewed CONTRAST MATERIAL: Intravenous: Omnipaque 350 Contrast volume:None given due to poor GFR. Oral: yes COMPARISON: CT CT CHEST/ABD/PEL W from 08/18/[address] CHEST/ABD/PEL W from 08/18/[address] CHEST/ABD/PEL W from 11/06/[address] CHEST/ABD/PEL W from 11/06/[address] ABDOMEN PELVIS W from 11/29/[address] ABDOMEN PELVIS W from 11/29/2020 FINDINGS: CHEST: Tracheobronchial tree: Patent where visualized. Mediastinum and Carla: No dominant adenopathy or fluid collection. Pulmonary parenchyma: Increased size and number of numerous bilateral pulmonary nodules in both upper and lower lobes. Masslike densities in the posterior lung bases appear slightly more prominent. Das ture material posterior right lower lobe. Pleura: Increased size right pleural effusion. Trace left pleural effusion. No pneumothorax. Lymph nodes: Within normal limits. Aorta: Thoracic portion non-dilated. Heart: Normal size. Trace pericardial effusion. Bones: Osteopenia and degenerative changes. No compression fracture or destructive lesion. Port over right pectoral muscle. ABDOMEN: Liver: Normal density. No measurable mass. Gallbladder and biliary tract: Status post cholecystectomy. Biliary stent and biliary air, unchanged . Pancreas: Not well evaluated without IV contrast. No gross evidence of a large recurrence mass. Per ipancreatic stranding and duodenal wall thickening similar to the most recent exam 29 November. Atrophic pancreatic tail. Spleen: Normal. Kidneys: Bilateral ureteral stents. Worsening bilateral hydronephrosis. Adrenal glands: Stable mild bilateral adrenal prominence. Aorta: Abdominal portion non-dilated. Lymph nodes: Within normal limits. Soft tissues: Mild diffuse subcutaneous edema. PELVIS: Bladder: Nearly empty. Distal pigtails of ureteral stents present within the bladder.. Bowel: No obstruction or bowel wall thickening. Peritoneal cavity: Increased the amount of ascites seen around the liver as well as in the lower pelv is. Bones: No fracture or destructive bony lesion. Degenerative changes. Reproductive organs: Within normal limits. IMPRESSION: 1. Interval worsening of bilateral pleural effusions and bilateral pulmonary nodules. 2. Increased ascites. 3. Interval worsening of bilateral hydronephrosis. Bilateral ureteral stents remain in place. 4. Pancreas not well evaluated without IV contrast. No gross interval change. Biliary stent. RADIATION DOSE DELIVERED: 1,112.92mGy.cm Total DLP DATA REPOSITORY: All CT scans at this facility are submitted to the National Radiology Data Registry (NRDR) Dose Index Registry (DIR) with the [employer] (ACR). RADIATION OPTIMIZATION: All CT scans at this facility use at least one of these dose optimization te chniques: automated exposure control; mA and/or kV adjustment per patient size (includes targeted exa ms where dose is matched to clinical indication); or iterative reconstruction.
== END 2021-01-06 21:22 ==
PROVIDERS: PCP Family Medicine; Visit Provider Internal Medicine Hematology & Oncology
DX: C25.9 Malignant neoplasm of pancreas, unspecified (principal); C78.00 Secondary malignant neoplasm of unspecified lung; J90 Pleural effusion, not elsewhere classified; R91.1 Solitary pulmonary nodule; N13.30 Unspecified hydronephrosis; Z96.0 Presence of urogenital implants
CPT/HCPCS: 36591; 71250; 80053; 86850; 86900; 86901; 86920; 74176; 85025; Q9967

== ENCOUNTER 2021-01-07 02:55 | Outpatient (RCR) | payer MEDICARE, BC, SELFPAY ==
[2020-12-31] VITALS (7 sets, daily range): BP systolic 120–151; BP diastolic 72–83; PULSE 81–101; RESP 16–18; TEMP 36.7–37.3; O2SAT 90–95
[2020-12-31] MEDS: Heparin 500 UNITS/5 ML SYRINGE (10:59)
[2020-12-31] MEDS: Normal Saline Flush 10 ML SYR IVP (11:00)
[2020-12-31 11:10] LABS: Abs Immature Grans 0.07 10^3/uL (0.0-0.06); Absolute Basophil Count 0.04 10^3/uL (0.0-0.2); Absolute Eosinophil Count 0.14 10^3/uL (0.0-0.7); Absolute Lymphocyte Count 0.74 10^3/uL (1.2-3.4); Absolute Monocyte Count 0.75 10^3/uL (0.1-0.8); Absolute Neutrophil Count 8.86 10^3/uL (1.2-6.7); Basophils % 0.4; Eosinophils % 1.3; HCT 22.1 % (36.0-46.0); Immature Grans % 0.7; MCH 26.9 pg (27.0-33.0); MCV 92.9 fL (80-95); Monocytes % 7.1; Neutrophils % 83.5; Nucleated RBC 0 %; Platelet Count 238 10^3/uL (130-400); RBC 2.38 10^6/uL (3.93-5.22); RDW 17.7 % (11.7-14.6); RDW-SD 60.4 fL
[2020-12-31 11:22] LABS: ALT 20 U/L (14-59); AST 23 U/L (15-37); Albumin 2.8 g/dL (3.4-5.0); Alkaline Phosphatase 137 U/L (46-116); Anion Gap 7.9 mmol/L (3-11); BUN 28 mg/dL (7-18); Bilirubin, Total 0.5 mg/dL (0.2-1.0); CO2 28.1 mmol/L (21.0-32.0); Calcium 8.2 mg/dL (8.5-10.1); Chloride 106 mmol/L (98-107); Glucose 168 mg/dL (74-106); Potassium 4.2 mmol/L (3.5-5.1); Sodium 142 mmol/L (136-145); Total Protein 6.5 g/dL (6.4-8.2)
[2020-12-31 11:32] LABS: HGB 6.4 g/dL (11.2-15.7)
[2020-12-31 11:35] LABS: Diff Comment Diff Reviewed; Macrocytosis 1+; Polychromasia Present
[2021-01-01 11:48] VITALS: BP 134/83; PULSE 118; RESP 28; TEMP 37; O2SAT 91
[2021-01-01 12:03] VITALS: BP 122/75; PULSE 102; RESP 24; TEMP 37; O2SAT 91
[2021-01-01 12:33] VITALS: BP 122/74; PULSE 99; RESP 24; TEMP 37.1; O2SAT 91
[2021-01-01 13:35] VITALS: BP 138/79; PULSE 96; RESP 22; TEMP 37; O2SAT 96
[2021-01-01] MEDS: Heparin 500 UNITS/5 ML SYRINGE IV (13:48)
[2021-01-01] MEDS: Normal Saline Flush 10 ML SYR IVP (13:48)
[2021-01-02 15:11] LABS: CA 19-9 33533 U/mL (<35)
[2021-01-06] MEDS: Normal Saline Flush 10 ML SYR IVP (12:17)
[2021-01-06 12:56] LABS: Abs Immature Grans 0.07 10^3/uL (0.0-0.06); Absolute Basophil Count 0.04 10^3/uL (0.0-0.2); Basophils % 0.3; Eosinophils % 0.8; HCT 25.5 % (36.0-46.0); HGB 7.7 g/dL (11.2-15.7); Immature Grans % 0.6; Lymphocytes % 3.9; MCH 27.4 pg (27.0-33.0); MCHC 30.2 % (32.0-36.0); MCV 90.7 fL (80-95); MPV 10.5 fL (8.0-11.0); Monocytes % 5.4; Nucleated RBC 0 %; Platelet Count 176 10^3/uL (130-400); RBC 2.81 10^6/uL (3.93-5.22); RDW 16.9 % (11.7-14.6); RDW-SD 55.8 fL; WBC 12.67 10^3/uL (4.4-10.8)
[2021-01-06 12:57] LABS: Absolute Lymphocyte Count 0.49 10^3/uL (1.2-3.4); Absolute Monocyte Count 0.68 10^3/uL (0.1-0.8); Absolute Neutrophil Count 11.28 10^3/uL (1.2-6.7)
[2021-01-06 13:12] LABS: ALT 20 U/L (14-59); AST 22 U/L (15-37); Albumin 2.9 g/dL (3.4-5.0); Alkaline Phosphatase 143 U/L (46-116); Anion Gap 10.5 mmol/L (3-11); BUN 43 mg/dL (7-18); Bilirubin, Total 0.5 mg/dL (0.2-1.0); CO2 24.5 mmol/L (21.0-32.0); CREATININE 2.2 mg/dL (0.55-1.02); Calcium 8.4 mg/dL (8.5-10.1); Chloride 107 mmol/L (98-107); Estimated GFR 21.94 (mL/min/1.73m2); Glucose 99 mg/dL (74-106); Potassium 4.4 mmol/L (3.5-5.1); Sodium 142 mmol/L (136-145); Total Protein 6.7 g/dL (6.4-8.2)
[2021-01-07 13:06] VITALS: BP 138/91; PULSE 109; RESP 22; TEMP 37; O2SAT 91
[2021-01-07 13:21] VITALS: BP 134/77; PULSE 103; RESP 20; TEMP 36.9; O2SAT 91
[2021-01-07 13:51] VITALS: BP 135/80; PULSE 98; RESP 20; TEMP 36.9; O2SAT 94
[2021-01-07 14:50] VITALS: BP 159/83; PULSE 97; RESP 18; TEMP 37.1; O2SAT 94
[2021-01-07] MEDS: Normal Saline Flush 10 ML SYR IVP (14:57)
[2021-01-07] MEDS: Heparin 500 UNITS/5 ML SYRINGE IV (14:57)
== END 2021-01-19 23:59 | disposition home or self-care (01) ==
LOC: INF 02:55
PROVIDERS: PCP Family Medicine; Visit Provider Internal Medicine Hematology & Oncology
DX: C25.0 Malignant neoplasm of head of pancreas (principal); K86.89 Other specified diseases of pancreas; C78.00 Secondary malignant neoplasm of unspecified lung; Z45.2 Encounter for adjustment and management of vascular access device
CPT/HCPCS: 36430; 36591; 80053; 86850; 86900; 86901; 86920; 85025; 86301; P9016

== ENCOUNTER 2021-01-18 14:54 | Inpatient (IN) | payer OTHER, SELFPAY ==
[2021-01-18] VITALS (53 sets, daily range): BP systolic 100–212; BP diastolic 25–182; PULSE 64–204; RESP 1–36; TEMP 36–36.7; O2SAT 80–100
--- NOTE | 2021-01-18 15:30 | RT.EKG_ITS ---
APPROVED REPORT Exam: Resting ECG Reason for Exam: SOB Patient Location: E HR:72 bpm ECG Measurements Heart Rate 72 AXIS NM [id number] P [id number] QRSd 147 QRS 47 QT 418 T -29 QTc 457 Conclusion Atrial fibrillation...V-rate 64- 86, irreg A-activity Right bundle branch block...QRSd>120, terminal axis(90,270). Afib. RBBB. Widened QRS compared to previous EKG. No STEMI. I have reviewed and interpreted ECG and agree with software generated interpretation.
--- NOTE | 2021-01-18 15:32 | W.ED.GENAD ---
Discharge Plan Disposition Patient Disposition: [facility] INPATIENT Condition: Deteriorating Discharge Details Clinical Impression: Acute renal failure, Hospice care patient Admit Date/Time: 01/18/21 20:46 Admit Provider: Gloria Gan Attending Provider: Gloria Gan Primary Care Provider: Nubia Santana V ED Provider: India Membreno Discharge Data Discharge Date/Time-TO BE ENTERED AT DEPARTURE: 01/18/21 23:20 Discharge Physician: Gloria Gan Medical Decision Making 70-year-old female with past medical history of stage IV pancreatic cancer, anemia, PE presents to the ER chief complaint of shortness of breath which has gotten worse over the last 2 to 3 days. Patient states that about severe prior to arrival. She has noticed increased bilateral lower extremity swelling over the 3 days. She is scheduled to have a paracentesis with Dr. Dobson outpatient tomorrow per patient report. She reports mild cough and productive of clear sputum, she denies any fever chills. She denies any pain. She is alert and oriented x4. Patient has been vaccinated for Covid. At this time patient is agreeable to work-up. Labs including BNP, chest x-ray EKG ordered at this time. EKG was reviewed by Laura Cummins MD ER attending, please see her official report. No evidence of peaked T waves Differential diagnosis includes but not limited to PE, CHF, fluid overload, worsening ascites, anemia, pneumonia. Lab results are returned with critical results potassium 7.6 BUN 141 creatinine 8.0 pH 7.2 troponin 0 0.07. BMP reordered to confirm labs. Repeat labs show BUN 141 creatinine 7.9 potassium 7.6, proBNP is greater than 35,000 VBG shows pH of 7.20 PCO2 of 39 bicarb 15 White blood cell 17.62 hemoglobin 8.2 hematocrit 27.4 1729: Notified by [facility] operations staff officer that patient is nauseous Zofran given 4 mg IV. At this time albuterol neb ordered Lasix 40 mg IV. Discussed ferrer with patient. She agrees to Ferrer placement. Patient reports that she is to be taken off hospice status for her procedure tomorrow. 1809: Spoke with Armando her who reports that she was planning to have thoracentesis tomorrow, he does not confirm comfort measures only. 1856: Spoke again with patient who is willing to have nephrostomy tubes if needed or thoracentesis. 1856: Discussed patient case and details with Dr. Mims who is on for hospitalist regarding patient. 1857: Calll made to [facility] to consult with urology for possible transfer if ureteral stents could possibly be cause of Failure. Spoke with Dr. Mims again who reports that he is not accepting this patient if she wants to pursue interventions. Patient has ICU status requires IR for possible nephrostomy tubes and thoracentesis. 2004: Spoke with Lesly with home health hospice who is marketing information analyst with palliative care will have Gloria Gan MD call me regarding patient. Armando is called to come in. 2015: Spoke with Dr. Mejia palliative care regarding patient, patient is current active hospice patient. She agrees to come in and speak with patient regarding her goals of care. 2048: Gloria Gan here to accept patient for admission to hospice. Dr. Gan is speaking with . Patient is still a hospice patient and wishes to be admitted. Medical Records Medical records reviewed: Yes I reviewed the patient's medical records. Medical records narrative: Exam(s) CT CHEST/ABD/PEL WO EXAM: CT CHEST/ABD/PEL WO CLINICAL HISTORY: Hx Effusions, Pancreatic CA Increased SOB. CONTRAST MATERIAL: Intravenous: none Oral: None COMPARISON: CT CT CHEST/ABD/PEL WO from 01/06/2021 FINDINGS: CHEST: Distal tip of the right Port-A-Cath is in the SVC. LUNGS: There has been slight further increase in size of the nodular and non nodular infiltrate in both lung montero and the size of the unilateral right pleural effusion has slightly further increased and is associated with volume loss of basal segments in the right lower lobe. MEDIASTINUM: No obvious new hilar nor mediastinal adenopathy. Visualized thyroid unremarkable. CARDIAC: Heart size is normal. There is no pericardial effusion.Caliber of the thoracic aorta is within normal limits. OSSEOUS: Calcified mass in the spinal canal measuring 11 x 7 x 14 millimeters is noted at T4 level, presumed to be neoplastic. There is no associated adjacent bone destruction.. ABDOMEN: There is increasing ascites in both upper quadrants as well as moderate amount of ascites again noted in the pelvis. LIVER: There are no obvious focal hepatic lesions evident of this noninfused study. Pneumobilia is again noted in the left lobe consistent with the presence of the CBD stent. GALLBLADDER/BILIARY: Gallbladder is again noted be surgically absent. CBD stent is again noted be in place. PANCREAS: Pancreatic head mass is difficult to visualize without IV contrast. The pancreatic duct in the body and tail is dilated. SPLEEN: Spleen is not enlarged. No obvious intrasplenic lesions. ADRENALS: Adrenal masses again noted, unchanged. KIDNEYS: Bilateral pigtail ureteral stents are again noted extending from the bilateral renal pelves down into the urinary bladder. The amount of hydronephrosis bilaterally is unchanged. No prominent perinephric fluid. ABDOMINAL AORTA: Abdominal aorta is not enlarged. LYMPH NODES: There is no retroperitoneal nor para-aortic adenopathy. ABDOMINAL WALL/GI: No evidence of significant anterior abdominal wall nor inguinal hernia. Symmetrical mild anasarca. PELVIS: LYMPH NODES: There is no intrapelvic nor inguinal adenopathy. GI: Dense material in the appendix but no evidence of acute appendicitis.No evidence of sigmoid diverticulitis. URINARY BLADDER: Not distended. Contains both lower pigtails of the bilateral ureteral stents. REPRODUCTIVE: Age appropriate OSSEOUS: No significant osseous lesions. Ascites in the cul-de-sac and anterior pelvis again noted. IMPRESSION: 1. Increasing metastatic disease in the lung montero and increasing size unilateral right pleural effusion. 2. Calcified density with measurements above seen within the spinal canal at T4 level, most probably neoplastic-metastatic 3. Slight increase in the amount of ascites in the upper abdomen. Unchanged amount of ascites in the pelvis. 4. CBD stent in place. Pancreatic head mass is difficult to delineate without IV contrast. 5. Stable bilateral hydronephrosis with bilateral ureteral stents in place which appear to remain in satisfactory position. No perinephric stranding. HPI General Mode of arrival: EMS. Date/Time Provider Initiated Documentation: 01/18/21 14:57. Limitations to Documentation: no limitations. Information obtained by: patient, EMS, RN notes reviewed and old records reviewed. HPI Narrative: 70-year-old female with past medical history of stage IV pancreatic cancer, anemia, PE presents to the ER chief complaint of shortness of breath which has gotten worse over the last 2 to 3 days. Patient states that about severe prior to arrival. She has noticed increased bilateral lower extremity swelling over the 3 days. She is scheduled to have a paracentesis with Dr. Dobson outpatient tomorrow per patient report. She reports mild cough and productive of clear sputum, she denies any fever chills. She denies any pain. She is alert and oriented x4. Patient has been vaccinated for Covid. Related Data Home Medications Medication Instructions Recorded Confirmed loratadine 10 mg PO QAM 10/23/19 01/18/21 Creon See Rx Instructions .ROUTE .COMPLEX 08/18/20 01/18/21 ondansetron 8 mg TRANSLINGUAL Q8H PRN PRN 08/18/20 01/18/21 apixaban 5 mg (74 tabs) tablets in See Rx Instructions .ROUTE 08/20/20 01/18/21 a dose pack .COMPLEX #74 dose pk sennosides 8.6 mg capsule 8.6 mg PO DAILY 11/04/20 01/18/21 albuterol sulfate 90 mcg/actuation 2 puff INHALATION Q6H PRN #8.5 g 01/15/21 01/18/21 aerosol inhaler famotidine 20 mg tablet 20 mg PO BID #30 tab 01/15/21 01/18/21 lorazepam 1 mg tablet 1 mg PO Q4H PRN PRN #30 tab 01/15/21 01/18/21 mirtazapine 15 mg tablet 30 mg PO QHS PRN tab 01/15/21 01/18/21 Previous Rx's Medication Instructions Recorded apixaban 5 mg (74 tabs) tablets in See Rx Instructions .ROUTE 08/20/20 a dose pack .COMPLEX #74 dose pk albuterol sulfate 90 mcg/actuation 2 puff INHALATION Q6H PRN #8.5 g 01/15/21 aerosol inhaler famotidine 20 mg tablet 20 mg PO BID #30 tab 01/15/21 lorazepam 1 mg tablet 1 mg PO Q4H PRN PRN #30 tab 01/15/21 Allergies Allergy/AdvReac Type Severity Reaction Status Date / Time propoxyphene AdvReac Severe vomiting Verified 01/18/21 15:09 [From Darvocet-N] and nausea General Stated Complaint: SOB OBDULIA: 2 Review of Systems All systems reviewed & are unremarkable except as noted in HPI and below Cardiovascular Cardiovascular: Reports leg edema, Reports dyspnea, Reports dyspnea on exertion and Reports orthopnea Respiratory Respiratory: Reports as per HPI, Reports dyspnea and Reports dyspnea on exertion [facility] Medical History Acute on chronic anemia Acute renal failure Anemia elevated ferritin Anxiety Arthritis Bacteremia Bilateral hydronephrosis Blood transfusion during current hospitalization 3 units as inpatient Chemotherapy-induced neuropathy Colonic polyp Comfort measures only status Diverticulosis DNI (do not intubate) DNR (do not resuscitate) Dying care Dyspnea and respiratory abnormalities Fatigue Goals of care, counseling/discussion Hospice care patient Moving to new residence sold [place] house in [place] bought new one in [place] will not live long enough to move Obesity resolved Palliative care patient Palpitations POLST (Physician Orders for Life-Sustaining Treatment) Pulmonary embolism Skin lesion Tachycardia Unintentional weight loss Surgical History S/P ACL repair left S/P lobectomy of lung removal of right lung mets from pancreatic cancer S/P thoracotomy Family History Mother , from complications of her diabetes age 80 Breast cancer Diabetes Obesity Sister No problems noted. Sister Diabetes Obesity Sister Duodenal cancer Sister , age 61 of pancreatic cancer Pancreatic cancer Obesity Sister Diabetes Obesity Daughter No problems noted. Daughter Bipolar 1 disorder Son No problems noted. Granddaughter No problems noted. Father , aged 82 from sepsis Sepsis Social History Smoking/Tobacco Use Status: Former Tobacco Use tobacco type: cigarettes Quit Date: 05/02/72 Pack-years: 6 Tobacco: How many years used: 6 Smoking risk assessment performed?: Yes Alcohol Intake: never Substance use type: does not use Caregiver/Support person: Yes Household members: spouse Housing: house Number of Children: 3 number of grandchildren: 1 Communication Needs: Corrective Lenses Education Level: college current occupation: retired dental hygienist and 4-H instructor Do you think of yourself as: straight/heterosexual Current gender identity: female What is your relationship status?: How often do you talk on the phone with friends or family?: three or more times per week How often do you get together with friends or relatives?: once per week Panel score (0-1 are the most socially isolated patients): 2 What type of physical activity do you participate in: walking and independent ambulation Duration: 15-30 minutes/day Frequency: 5-6 times per week Special tucker needs: No Seatbelt use: always Working smoke detector in home: Yes Fire extinguisher in home: Yes Do you feel safe at home: Yes Do you feel safe in your relationship?: Yes Additional Social history: to chronically ill , Tyron, who has a muscle-wasting disease attributed to his exposure to [employer] [place]. Her three children live in [place]. The two oldest, Clemente and Anuja, are unvaccinated so cannot visit their mother when she's inpatient. Her other daughter, Sherly, is enrolling in nursing school so she is vaccinated. Clemente arrives 01/19; Anuja and Sherly are trying to get the next flight out. Analilia and Tyron returned from [place] the first week of December; they just bought a house there and sold theirs in [place] [employer], with a closing date in March. She and Tyron had been planning on moving to [facility] but then Analilia was diagnosed with pancreatic cancer out of the blue. She tried three types of cancer-treatment. It's progressing VERY RAPIDLY as of Dec 31. Exam Narrative Exam Narrative: Constitutional: Alert and oriented x3. Appears stated age. Normal body habitus. Pale. Head: Normocephalic, no trauma. Eyes: Pupils PERRLA, Red reflex noted, EOM's intact. Eyelids symmetrical without lesions, discharge, or swelling. ENT: Bilateral TM's WNL, External ear normal to inspection, no mastoid TTP, swelling, or erythema, Nasal turbinates WNL, no nasal discharge. Normal dentition, Posterior pharynx WNL, no exudate. Chest: RRR, Normal S1, S2, distal pulses intact. Resp: Lungs clear to auscultation bilaterally, no wheezes, rales, or rhonchi. Auscultated slightly diminished in the bases. Prolonged expiratory rate. Abdomen: Soft nontender to palpation not acutely distended. Musculoskeletal: Unable to assess gait. Bilateral 2+ pitting edema to the lower extremities. Skin: No suspicious rashes or lesions. Capillary refill less than 2 sec. Neurologic: Cranial nerves II-XII intact. Alert and oriented x 3. Hematologic/Lymphatic: No ecchymosis, no lymphadenopathy. Course Vital Signs Vital signs: Vital Signs Temperature 36.7 C 01/18/21 15:04 Pulse 81 01/18/21 15:04 Respiratory Rate 24 01/18/21 15:04 Blood Pressure 163/118 H 01/18/21 15:04 Pulse Oximetry 99 01/18/21 15:04 Temperature 36.7 C 01/18/21 15:04 Pulse 81 01/18/21 15:04 Respiratory Rate 24 01/18/21 15:04 Respiratory Effort Non-Labored 01/18/21 15:04 Blood Pressure 163/118 H 01/18/21 15:04 Blood Pressure Position Supine 01/18/21 15:04 Pulse Oximetry 99 01/18/21 15:04 Oxygen Delivery Method Nasal Cannula 01/18/21 15:04 Oxygen Flow Rate 5 01/18/21 15:04 Pain Level 15 01/18/21 15:04
--- NOTE | 2021-01-18 15:45 | DI.CT_ITS ---
Exam(s) CT CHEST/ABD/PEL WO EXAM: CT CHEST/ABD/PEL WO CLINICAL HISTORY: Hx Effusions, Pancreatic CA Increased SOB. TECHNIQUE: Imaging Protocol: Axial computed tomography images with coronal and sagittal reformatted images were created and reviewed CONTRAST MATERIAL: Intravenous: none Oral: None COMPARISON: CT CT CHEST/ABD/PEL WO from 01/06/2021 FINDINGS: CHEST: Distal tip of the right Port-A-Cath is in the SVC. LUNGS: There has been slight further increase in size of the nodular and non nodular infiltrate in jose ramon th lung montero and the size of the unilateral right pleural effusion has slightly further increased a nd is associated with volume loss of basal segments in the right lower lobe. MEDIASTINUM: No obvious new hilar nor mediastinal adenopathy. Visualized thyroid unremarkable. CARDIAC: Heart size is normal. There is no pericardial effusion.Caliber of the thoracic aorta is wit hin normal limits. OSSEOUS: Calcified mass in the spinal canal measuring 11 x 7 x 14 millimeters is noted at T4 level, p resumed to be neoplastic. There is no associated adjacent bone destruction.. ABDOMEN: There is increasing ascites in both upper quadrants as well as moderate amount of ascites again noted in the pelvis. LIVER: There are no obvious focal hepatic lesions evident of this noninfused study. Pneumobilia is a gain noted in the left lobe consistent with the presence of the CBD stent. GALLBLADDER/BILIARY: Gallbladder is again noted be surgically absent. CBD stent is again noted be in place. PANCREAS: Pancreatic head mass is difficult to visualize without IV contrast. The pancreatic duct in the body and tail is dilated. SPLEEN: Spleen is not enlarged. No obvious intrasplenic lesions. ADRENALS: Adrenal masses again noted, unchanged. KIDNEYS: Bilateral pigtail ureteral stents are again noted extending from the bilateral renal pelves down into the urinary bladder. The amount of hydronephrosis bilaterally is unchanged. No prominent perinephric fluid. ABDOMINAL AORTA: Abdominal aorta is not enlarged. LYMPH NODES: There is no retroperitoneal nor para-aortic adenopathy. ABDOMINAL WALL/GI: No evidence of significant anterior abdominal wall nor inguinal hernia. Symmetrical mild anasarca. PELVIS: LYMPH NODES: There is no intrapelvic nor inguinal adenopathy. GI: Dense material in the appendix but no evidence of acute appendicitis.No evidence of sigmoid diver ticulitis. URINARY BLADDER: Not distended. Contains both lower pigtails of the bilateral ureteral stents. REPRODUCTIVE: Age appropriate OSSEOUS: No significant osseous lesions. Ascites in the cul-de-sac and anterior pelvis again noted. IMPRESSION: 1. Increasing metastatic disease in the lung montero and increasing size unilateral right pleural effu norma. 2. Calcified density with measurements above seen within the spinal canal at T4 level, most probably neoplastic-metastatic 3. Slight increase in the amount of ascites in the upper abdomen. Unchanged amount of ascites in the pelvis. 4. CBD stent in place. Pancreatic head mass is difficult to delineate without IV contrast. 5. Stable bilateral hydronephrosis with bilateral ureteral stents in place which appear to remain in satisfactory position. No perinephric stranding. RADIATION DOSE DELIVERED: 1,194.94mGy.cm Total DLP DATA REPOSITORY: All CT scans at this facility are submitted to the National Radiology Data Registry (NRDR) Dose Index Registry (DIR) with the [employer] (ACR). RADIATION OPTIMIZATION: All CT scans at this facility use at least one of these dose optimization te chniques: automated exposure control; mA and/or kV adjustment per patient size (includes targeted exa ms where dose is matched to clinical indication); or iterative reconstruction.
[2021-01-18 15:51] LABS: Abs Immature Grans 0.28 10^3/uL (0.0-0.06); Absolute Basophil Count 0.02 10^3/uL (0.0-0.2); Absolute Lymphocyte Count 0.28 10^3/uL (1.2-3.4); Absolute Monocyte Count 0.46 10^3/uL (0.1-0.8); Basophils % 0.1; Eosinophils % 0.1; HCT 27.4 % (36.0-46.0); HGB 8.2 g/dL (11.2-15.7); Immature Grans % 1.6; Lymphocytes % 1.6; MCH 27.2 pg (27.0-33.0); MCHC 29.9 % (32.0-36.0); MPV 10.5 fL (8.0-11.0); Monocytes % 2.6; Nucleated RBC 0 %; Platelet Count 117 10^3/uL (130-400); RBC 3.01 10^6/uL (3.93-5.22); RDW 18.3 % (11.7-14.6); RDW-SD 60.2 fL; WBC 17.62 10^3/uL (4.4-10.8)
[2021-01-18 15:54] LABS: Absolute Eosinophil Count 0.02 10^3/uL (0.0-0.7); Absolute Neutrophil Count 16.56 10^3/uL (1.2-6.7)
[2021-01-18 16:04] LABS: Magnesium 3.3 mg/dL (1.8-2.4)
[2021-01-18 16:22] LABS: ALT 44 U/L (14-59); AST 47 U/L (15-37); Albumin 2.8 g/dL (3.4-5.0); Alkaline Phosphatase 330 U/L (46-116); Anion Gap 19.7 mmol/L (3-11); Bilirubin, Total 0.7 mg/dL (0.2-1.0); CO2 16.3 mmol/L (21.0-32.0); Calcium 8.5 mg/dL (8.5-10.1); Chloride 102 mmol/L (98-107); Estimated GFR 4.95 (mL/min/1.73m2); Glucose 120 mg/dL (74-106); Sodium 138 mmol/L (136-145); Total Protein 6.8 g/dL (6.4-8.2)
[2021-01-18 16:27] LABS: BE (Venous) -13 mmol/L (-2-3); HCO3 (Venous) 15 mmol/L (23-28); O2 Sat (Venous) 45 %; TCO2 (Venous) 15 mmol/L (24-29); pCO2 (Venous) 39 mmHg (41-51); pO2 (Venous) 32 mmHg
[2021-01-18 16:31] LABS: BUN 141 mg/dL (7-18)
[2021-01-18 16:32] LABS: NT-proBNP > 35000 pg/mL (<300); Potassium 7.6 mmol/L (3.5-5.1); Troponin I 0.07 ng/mL (<0.06)
[2021-01-18 17:01] LABS: Calcium 8.5 mg/dL (8.5-10.1); Chloride 101 mmol/L (98-107); Estimated GFR 5.02 (mL/min/1.73m2); Glucose 117 mg/dL (74-106); Sodium 137 mmol/L (136-145)
[2021-01-18 17:12] LABS: BUN 141 mg/dL (7-18); Potassium 7.6 mmol/L (3.5-5.1)
[2021-01-18 17:13] LABS: CREATININE 7.9 mg/dL (0.55-1.02)
[2021-01-18] MEDS: Ondansetron 4 MG/2 ML VIAL (17:31)
[2021-01-18] MEDS: Albuterol 2.5 MG/3 ML INH SOLN VIAL UPD (17:32)
[2021-01-18] MEDS: Furosemide 40 MG/4 ML VIAL IVP (17:32)
--- NOTE | 2021-01-18 17:54 | DI.VRAD_ITS ---
PROCEDURE INFORMATION: Exam: CT Chest Without Contrast; Diagnostic Exam date and time: 01/18/2021 3:49 PM Age: 70 years old Clinical indication: Other: HX effusions, pancreatic CA increased SOB; Prior surgery; Surgery date: 6+ months; Surgery type: Lung resection TECHNIQUE: Imaging protocol: Diagnostic computed tomography of the chest without contrast. COMPARISON: CT CHEST/ABD/PEL WO 11/07/2020 15:26 FINDINGS: Lungs: The lungs contain innumerable irregular nodular densities scattered bilaterally measuring up to 4.5 cm in diameter. These have significantly increased both in size and number compared to the prior study. No focal airspace disease is seen. Some of the nodular densities are partially calcified. Pleural spaces: There is a moderate-sized pleural effusion layered posteriorly on the right. This is also increased from prior study. Heart: Unremarkable. No cardiomegaly. No pericardial effusion. Esophagus: No esophageal mass or wall thickening. No hiatal hernia. Aorta: Unremarkable. No aortic aneurysm or significant atherosclerosis. Lymph nodes: Unremarkable. No enlarged lymph nodes. Bones/joints: Unremarkable. No acute fracture. There is a calcified mass within the spinal canal to the right of midline at the T4 level. This has increased in size from the previous exam. Soft tissues: There is a right subclavian [id number] in place. IMPRESSION: Worsening metastatic disease throughout the lungs. There is an enlarging partially calcified metastasis within the spinal canal at T4. PROCEDURE INFORMATION: Exam: CT Abdomen And Pelvis Without Contrast Exam date and time: 01/18/2021 3:49 PM Age: 70 years old Clinical indication: Other: HX effusions, pancreatic CA increased SOB; Prior surgery; Surgery date: 6+ months; Surgery type: Lung resection TECHNIQUE: Imaging protocol: Computed tomography of the abdomen and pelvis without contrast. COMPARISON: CT CHEST/ABD/PEL WO 11/07/2020 15:26 FINDINGS: Liver: No mass or intrahepatic biliary ductal dilatation. There is pneumobilia in the left lobe secondary to a common bile duct stent. Gallbladder and bile ducts: Previous cholecystectomy. CBD stent is in place. Pancreas: Pancreatic head mass is difficult to delineate on this noncontrast study. Spleen: Normal. No splenomegaly. Adrenal glands: Bilateral adrenal masses are present similar to prior exam. Kidneys and ureters: There is bilateral hydronephrosis with bilateral ureteral stents in place. Stomach and bowel: The stomach is fluid filled and mildly distended. Small bowel loops are normal. The colon is grossly normal except for scattered diverticula. No obstruction. No mucosal thickening or visible mass. Appendix: No evidence of appendicitis. Intraperitoneal space: There is ascites present throughout the abdomen and pelvis. Fluid has somewhat increased from previous exam. Vasculature: Unremarkable. No abdominal aortic aneurysm . Moderate atherosclerosis is present. Lymph nodes: No enlarged retroperitoneal or mesenteric lymph nodes. Urinary bladder: No mass or wall thickening. Ureteral stents extend into the bladder lumen. Reproductive: Unremarkable as visualized. Bones/joints: Unremarkable. No acute fracture. No lytic osseous lesions visualized. Soft tissues: Unremarkable. IMPRESSION: Pancreatic head mass with CBD stent in place. Bilateral hydronephrosis with ureteral stents in place. Slight increase in the amount of ascites throughout the abdomen. Dictated and Authenticated by: You Traore MD. Ordering:LEXIS Osborne MD
[2021-01-18] MEDS: Sodium Zirconium Cyclosilicate 10 GM PKT PO (18:26)
[2021-01-18 19:45] LABS: Troponin I 0.07 ng/mL (<0.06)
--- NOTE | 2021-01-18 21:19 | W.PM.HP.N ---
Date of service: 01/18/21 Time of Service: 21:20 Assessment and Plan Assessment and plan (1) Comfort measures only status: Status: Acute Assessment and plan: Symptom management admission for hospice. Breathlessness has been her biggest problem. Advised we need to address it from many sides: morphine, lorazepam, traffic court magistrate, possible thorancentesis. (Dr Dobson aware of Analilia's admission). (2) Dying care: Status: Acute Assessment and plan: She did not seem surprised to hear that I thought she only had days maybe a week or two. She had always told me that she wanted to in [place]. She was planning on moving to [place] in March, but she will not survive until that date. She now has a morphine pump in place, low dose. She REALLY WANTS TO BE WITH HER CHILDREN before she dies. The only way that she can see two of them is IF we can get her outside the hospital or better yet IF we can send her back home. Her is too disabled to move furniture around so DME (such as hospital bed) cannot be delivered until Tuesday. (Son Clemente is arriving late Tuesday night). (3) Acute renal failure: Status: Acute Assessment and plan: On a renal diet for now. Stopped romina-exalate. If she wants other food, she can have it. (4) Hospice care patient: Status: Acute (5) Dyspnea and respiratory abnormalities: Status: Acute Assessment and plan: multifactorial advised Analilia NOT to gume her oxygen saturation cannot go home on [place], so better to use nasal cannula was in the mid-90s on 3 L when I saw her in the ER (6) Metastasis to lung: Status: Acute (7) Stage IV adenocarcinoma of pancreas: Status: Acute (8) Moving to new residence: Status: Acute Assessment and plan: Home in [place] is purchase. House in [place] is sold. Just waiting for closing dates. Advised Analilia to let it go, let her children and worry about this stuff. (9) Anxiety: Status: Chronic Assessment and plan: When her was present, her BP went up significantly. She is the caregiver. Hates not being able to direct/plan/control. Reiki may be helpful Lorazepam ordered. History of Present Illness History of Present Illness Chief Complaint: stage IV pancreatic, dyspnea, anxiety Narrative: Analilia had a CT scan on 01/06/21 that showed significant progression of her stage IV pancreatic cancer. She has mets throughout her chest and abdomen, to her lungs, ureters, bones, spleen, kidney. She saw her oncologist, Dr Lu, on 01/09 who regretfully told her that there were no other cancer-directed therapies available for her. She was admitted to hospice later that day. I saw her last at her home on , 01/15. She reported then, as now, that her biggest symptom of her cancer is her breathlessness. She is on oxygen at home. She had not taken ANY morphine until my visit with her; I am not clear how much she has taken over the last 4 days, but not enough. She is willing to go on a morphine SC pump; we are starting her at 1 mg/hr but will likely need to titrate up. She did not call the hospice team today to let them know that she was worsening; instead, she went to the ER. I only learned of her being in the ER after 5 hours of care had elapsed, with many diagnostic tests, including a repeat CT scan and multiple labs. It was written on her problem list that she is a hospice patient. After about 5 hrs, the ER PA called the hospice nurse who then called me. It was clear that Analilia could not go home. Prior to calling me, there was talk of sending Analilia to [facility] or admitting her to the ICU at [facility]. This is not what she wants. She is in new severe kidney failure DESPITE have [address] scan did not show a severe pleural effusion (she has a moderate effusion, still); she has a significant tumor burden. I told Analilia that I thought she was dying; she likely only has days, maybe 1.5 weeks. We called her children, who are all in [place], to tell them this and to suggest they get on the next available flight. Her son was due to arrive tomorrow night anyway. Unfortunately, only 2/3 are vaccinated against COVID-19. I explained that the unvaccinated children cannot visit their mother in the hospital, but that we can do our best to stabilize her and get her home. The earliest I see that happening is Tuesday. Analilia was supposed to have a thorancentesis tomorrow with Dr Dobson. I have let her know that Analilia is now inpatient. I asked her to look at this most recent CT scan to see if she thinks that drawing off fluid might help. Analilia is being admitted on Comfort Measures status. She is here for hospice symptom management. Review of Systems Constitutional Constitutional: Reports anorexia, Reports difficulty sleeping, Reports fatigue, Reports lethargy, Reports poor appetite, Reports weakness and Reports weight loss Eyes Eyes: Reports dry eyes and Reports requires corrective lenses ENT Ears, Nose, Mouth, and Throat: Reports disequilibrium Cardiovascular Cardiovascular: Reports pedal edema, Reports edema, Reports leg edema, Reports dyspnea, Reports dyspnea on exertion and Reports orthopnea Respiratory Respiratory: Reports dyspnea and Reports dyspnea on exertion Gastrointestinal Gastrointestinal: Reports abdominal pain, Reports constipation and Reports early satiety Genitourinary Genitourinary: Reports difficulty voiding Musculoskeletal Musculoskeletal: Reports atrophy, Reports muscle cramps, Reports muscle weakness and Reports stiffness Integumentary/Breasts Skin/Breast: Reports dry skin Neurologic Neurologic: Reports disequilibrium and Reports weakness Psychiatric Psychiatric: Reports anxiety, Denies depression, Reports difficulty concentrating, Reports hopelessness, Denies irritability and Reports anhedonia Endocrine Endocrine: Reports fatigue Hematologic/Lymphatic Hematologic/Lymphatic: Reports easy bleeding (at time of admission) [facility] Medical History (Updated 01/18/21 @ 21:40 by Gloria Gan MD) Acute on chronic anemia Acute renal failure Anemia elevated ferritin Anxiety Arthritis Bacteremia Bilateral hydronephrosis Blood transfusion during current hospitalization 3 units as inpatient Chemotherapy-induced neuropathy Colonic polyp Comfort measures only status Diverticulosis DNI (do not intubate) DNR (do not resuscitate) Dying care Dyspnea and respiratory abnormalities Fatigue Goals of care, counseling/discussion Hospice care patient Moving to new residence sold her house in [place] bought new one in [place] will not live long enough to move Obesity resolved Palliative care patient Palpitations POLST (Physician Orders for Life-Sustaining Treatment) Pulmonary embolism Skin lesion Tachycardia Unintentional weight loss Surgical History S/P ACL repair left S/P lobectomy of lung removal of right lung mets from pancreatic cancer S/P thoracotomy Family History Mother , from complications of her diabetes age 80 Breast cancer Diabetes Obesity Sister No problems noted. Sister Diabetes Obesity Sister Duodenal cancer Sister , age 61 of pancreatic cancer Pancreatic cancer Obesity Sister Diabetes Obesity Daughter No problems noted. Daughter Bipolar 1 disorder Son No problems noted. Granddaughter No problems noted. Father , aged 82 from sepsis Sepsis Social History (Updated 01/18/21 @ 21:47 by Gloria Gan MD) Smoking/Tobacco Use Status: Former Tobacco Use tobacco type: cigarettes Quit Date: 05/02/72 Pack-years: 6 Tobacco: How many years used: 6 Smoking risk assessment performed?: Yes Alcohol Intake: never Substance use type: does not use Caregiver/Support person: Yes Household members: spouse Housing: house Number of Children: 3 number of grandchildren: 1 Communication Needs: Corrective Lenses Education Level: college current occupation: retired dental hygienist and 4-H instructor Do you think of yourself as: straight/heterosexual Current gender identity: female What is your relationship status?: How often do you talk on the phone with friends or family?: three or more times per week How often do you get together with friends or relatives?: once per week Panel score (0-1 are the most socially isolated patients): 2 What type of physical activity do you participate in: walking and independent ambulation Duration: 15-30 minutes/day Frequency: 5-6 times per week Special tucker needs: No Seatbelt use: always Working smoke detector in home: Yes Fire extinguisher in home: Yes Do you feel safe at home: Yes Do you feel safe in your relationship?: Yes Additional Social history: to chronically ill , Tyron, who has a muscle-wasting disease attributed to his exposure to [place]. Her three children live in [place]. The two oldest, Clemente and Anuja, are unvaccinated so cannot visit their mother when she's inpatient. Her other daughter, Sherly, is enrolling in nursing school so she is vaccinated. Clemente arrives 01/19; Anuja and Sherly are trying to get the next flight out. Analilia and Tyron returned from [place] the first week of December; they just bought a house there and sold theirs in [place], with a closing date in March. She and Tyron had been planning on moving to [facility] but then Analilia was diagnosed with pancreatic cancer out of the blue. She tried three types of cancer-treatment. It's progressing VERY RAPIDLY as of Dec 31. Meds Allergies and Home Medications Allergies Allergy/AdvReac Type Severity Reaction Status Date / Time propoxyphene AdvReac Severe vomiting Verified 01/18/21 15:09 [From oYnny] and nausea Home Medications Medication Instructions Recorded Confirmed Type loratadine 10 mg PO QAM 10/23/19 01/18/21 History Creon See Rx Instructions .ROUTE .COMPLEX 08/18/20 01/18/21 History ondansetron 8 mg TRANSLINGUAL Q8H PRN PRN 08/18/20 01/18/21 History apixaban 5 mg (74 tabs) tablets in See Rx Instructions .ROUTE 08/20/20 01/18/21 Rx a dose pack .COMPLEX #74 dose pk sennosides 8.6 mg capsule 8.6 mg PO DAILY 11/04/20 01/18/21 History albuterol sulfate 90 mcg/actuation 2 puff INHALATION Q6H PRN #8.5 g 01/15/21 01/18/21 Rx aerosol inhaler famotidine 20 mg tablet 20 mg PO BID #30 tab 01/15/21 01/18/21 Rx lorazepam 1 mg tablet 1 mg PO Q4H PRN PRN #30 tab 01/15/21 01/18/21 Rx mirtazapine 15 mg tablet 30 mg PO QHS PRN tab 01/15/21 01/18/21 History Exam Narrative Exam Narrative: Constitutional: Alert and oriented x3. Appears stated age. Normal body habitus. Pale. Tired appearing. Head: Normocephalic, no trauma. Eyes: Pupils PERRLA, Red reflex noted, EOM's intact. Wears glasses. ENT: NOrmal hearing. L, External ear normal to inspection, , no nasal discharge. Normal dentition, No LAD. Dry mm. Chest: RRR, Normal S1, S2, distal pulses intact. Resp: Lungs diminished in the bases, right 1/3 up, left 1/4 up. Prolonged expiratory rate. Abdomen: Soft slightly tender to palpation not acutely distended. No obvious ascites. Musculoskeletal: Unable to assess gait. Bilateral 2+ pitting edema to the lower extremities. Skin: No suspicious rashes or lesions. Capillary refill less than 2 sec. Neurologic: Cranial nerves II-XII intact. Alert and oriented x 3. DTR's intact. Hematologic/Lymphatic: No ecchymosis, no lymphadenopathy. Psych: anxious, trying to maintain control, wanting not to suffer, accepts that she is dying, things moving faster than I thought Results Labs Result diagrams: 01/18/21 15:45 01/18/21 16:25 Labs: Laboratory Results - last 24 hr 01/18/21 01/18/21 01/18/21 15:45 15:45 15:45 WBC 17.62 H RBC 3.01 L Hgb 8.2 L Hct 27.4 L MCV 91.0 MCH 27.2 MCHC 29.9 L RDW 18.3 H Plt Count 117 L MPV 10.5 Immature Gran % 1.6 Neutrophils % 94.0 Lymphocytes % 1.6 Monocytes % 2.6 Eosinophils % 0.1 Basophils % 0.1 Nucleated RBC % 0 Absolute Neutrophils 16.56 H Absolute Lymphocytes 0.28 L Absolute Monocytes 0.46 Absolute Eosinophils 0.02 Absolute Basophils 0.02 VBG pH VBG pCO2 VBG pO2 VBG HCO3 VBG Total CO2 VBG O2 Saturation VBG Base Excess Sodium 138 Potassium 7.6 H* Chloride 102 Carbon Dioxide 16.3 L Anion Gap 19.7 H BUN 141 H* Creatinine 8.0 H* Estimated GFR/1.73 m2 4.95 Glucose 120 H Calcium 8.5 Magnesium 3.3 H Total Bilirubin 0.7 AST 47 H ALT 44 Alkaline Phosphatase 330 H Troponin I 0.07 H NT-Pro-B Natriuret Pep > 83928 H Total Protein 6.8 Albumin 2.8 L 01/18/21 01/18/21 01/18/21 16:25 16:25 18:45 WBC RBC Hgb Hct MCV MCH MCHC RDW Plt Count MPV Immature Gran % Neutrophils % Lymphocytes % Monocytes % Eosinophils % Basophils % Nucleated RBC % Absolute Neutrophils Absolute Lymphocytes Absolute Monocytes Absolute Eosinophils Absolute Basophils VBG pH 7.20 L VBG pCO2 39 L VBG pO2 32 VBG HCO3 15 L VBG Total CO2 15 L VBG O2 Saturation 45 VBG Base Excess -13 L Sodium 137 Potassium 7.6 H* Chloride 101 Carbon Dioxide 17.0 L Anion Gap 19.0 H BUN 141 H* Creatinine 7.9 H* Estimated GFR/1.73 m2 5.02 Glucose 117 H Calcium 8.5 Magnesium Total Bilirubin AST ALT Alkaline Phosphatase Troponin I 0.07 H NT-Pro-B Natriuret Pep Total Protein Albumin Last Vital Signs Temp 98.1 F 01/18/21 15:04 Pulse 68 01/18/21 20:15 Resp 15 01/18/21 20:20 BP 105/65 01/18/21 20:15 Pulse Ox 93 01/18/21 20:01
[2021-01-18 23:44] LABS: Source Nasal/Nares
[2021-01-19] MEDS: Mirtazapine 15 MG TAB 30 MG PO (00:44)
[2021-01-19] MEDS: LORazepam 2 MG/ML VIAL IV/SC (00:44)
[2021-01-19] MEDS: Normal Saline Flush 10 ML SYR IVP (01:07)
--- NOTE | 2021-01-19 07:50 | W.PM.DS.N ---
Date of service: 01/19/21 Time of Service: 06:50 DS: Diagnosis Discharge Diagnosis (1) Comfort measures only status: Status: Acute (2) Dying care: Status: Acute (3) Acute renal failure: Status: Acute (4) Hospice care patient: Status: Acute (5) Dyspnea and respiratory abnormalities: Status: Acute (6) Metastasis to lung: Status: Acute (7) Stage IV adenocarcinoma of pancreas: Status: Acute (8) Moving to new residence: Status: Acute (9) Anxiety: Status: Chronic (10) : Status: Acute Discharge Plan Disposition Condition: Deteriorating Discharge Details Reason For Visit: Acute Renal Failu,Stage 4 Pancreatic CA,Hospice PT Admit Date/Time: 01/18/21 20:46 Admit Provider: Gloria Gan Attending Provider: Gloria Gan Primary Care Provider: Nubia Santana V Hospital Course Hospital Course: Admitted for hospice symptom management. Started on low dose CADD pump of morphine for breathlessness. Received small amount lorazepam for anxiety. peacefully at 6:24 am, not long after nurse had checked on her. Home Meds and New Rx's Prescriptions: No Action senna 8.6 mg capsule 8.6 mg PO DAILY RF: 0 albuterol sulfate 90 mcg/actuation HFA aerosol inhaler 2 puff inhalation Q6H PRN (Reason: shortness of breath or wheezing) Qty: 8.5 RF: 0 mirtazapine 15 mg tablet 30 mg PO QHS PRNRF: 0 lorazepam 1 mg tablet 1 mg PO Q4H PRN PRN (Reason: anxiety, breathlessness) Qty: 30 RF: 0 famotidine 20 mg tablet 20 mg PO BID Qty: 30 RF: 3 loratadine 10 mg Tablet 10 mg PO QAM RF: 0 ondansetron 8 mg tablet,disintegrating 8 mg translingual Q8H PRN PRNRF: 0 Creon 24,000-76,000 -120,000 unit capsule,delayed release(DR/EC) See Rx Instructions .ROUTE .COMPLEX RF: 0 Eliquis DVT-PE Treat 30D Start 5 mg (74 tabs) tablets,dose pack See Rx Instructions .ROUTE .COMPLEX Qty: 74 RF: 0 Hold Instructions: Home Medication placed on hold at Doctor's office Discharge Instructions Activity:: Discharge Data Discharge Date/Time-TO BE ENTERED AT DEPARTURE: 01/19/21 07:00 Discharge Comment: Analilia without suffering from pain or dyspnea. Discharge Physician: Gloria Gan DS: Summary Time Spent with Patient providing and/or coordinating discharge services: Less than 30 minutes Status at Discharge Functional status at discharge: bed bound Overall status at discharge: other Mental Status: other Speech and Movement: other Mood: other Affect: other Exam Psych Mental Status: other Speech and Movement: other Mood: other Affect: other DS: Data Vitals/I&O Vitals and I&O: Vital Signs Temperature 96.8 F L 01/18/21 21:43 Pulse 74 01/18/21 21:43 Pulse Rhythm Regular 01/18/21 21:43 Pulse 72 01/18/21 20:20 Respiratory Rate 20 01/18/21 21:43 Respiratory Effort 01/18/21 21:43 Respiratory Depth Deep 01/18/21 21:43 Respiratory Pattern Normal 01/18/21 21:43 Blood Pressure 105/65 01/18/21 20:15 Blood Pressure Mean 74 01/18/21 20:15 Blood Pressure Position Supine 01/18/21 15:04 Pulse Oximetry 93 01/18/21 21:43 Oxygen Delivery Method Nasal Cannula 01/19/21 04:50 Oxygen Flow Rate 5 01/19/21 04:50 Pain Level 15 01/18/21 15:04 Comment 01/18/21 21:43 Intake & Output 01/18/21 01/18/21 01/19/21 11:59 23:59 11:59 Output Total 150 / 150 300 / 300 Balance -150 / -150 -300 / -300 Weight 175 lb Output: Urine 150 / 150 300 / 300 Other: Urine Color Straw Yellow Urine Appearance Clear Clear Data Completed and Pending Labs on day of discharge: Labs from last 24 hours 01/18/21 01/18/21 01/18/21 22:55 18:45 16:25 WBC RBC Hgb Hct MCV MCH MCHC RDW Plt Count MPV Immature Gran % Neutrophils % Lymphocytes % Monocytes % Eosinophils % Basophils % Nucleated RBC % Absolute Neutrophils Absolute Lymphocytes Absolute Monocytes Absolute Eosinophils Absolute Basophils VBG pH VBG pCO2 VBG pO2 VBG HCO3 VBG Total CO2 VBG O2 Saturation VBG Base Excess Sodium 137 Potassium 7.6 H* Chloride 101 Carbon Dioxide 17.0 L Anion Gap 19.0 H BUN 141 H* Creatinine 7.9 H* Estimated GFR/1.73 m2 5.02 Glucose 117 H Calcium 8.5 Magnesium Total Bilirubin AST ALT Alkaline Phosphatase Troponin I 0.07 H NT-Pro-B Natriuret Pep Total Protein Albumin COVID-19 Source Nasal/Nares SARS-CoV-2 (PCR) Pending 01/18/21 01/18/21 01/18/21 16:25 15:45 15:45 WBC 17.62 H RBC 3.01 L Hgb 8.2 L Hct 27.4 L MCV 91.0 MCH 27.2 MCHC 29.9 L RDW 18.3 H Plt Count 117 L MPV 10.5 Immature Gran % 1.6 Neutrophils % 94.0 Lymphocytes % 1.6 Monocytes % 2.6 Eosinophils % 0.1 Basophils % 0.1 Nucleated RBC % 0 Absolute Neutrophils 16.56 H Absolute Lymphocytes 0.28 L Absolute Monocytes 0.46 Absolute Eosinophils 0.02 Absolute Basophils 0.02 VBG pH 7.20 L VBG pCO2 39 L VBG pO2 32 VBG HCO3 15 L VBG Total CO2 15 L VBG O2 Saturation 45 VBG Base Excess -13 L Sodium Potassium Chloride Carbon Dioxide Anion Gap BUN Creatinine Estimated GFR/1.73 m2 Glucose Calcium Magnesium 3.3 H Total Bilirubin AST ALT Alkaline Phosphatase Troponin I NT-Pro-B Natriuret Pep Total Protein Albumin COVID-19 Source SARS-CoV-2 (PCR) 01/18/21 15:45 WBC RBC Hgb Hct MCV MCH MCHC RDW Plt Count MPV Immature Gran % Neutrophils % Lymphocytes % Monocytes % Eosinophils % Basophils % Nucleated RBC % Absolute Neutrophils Absolute Lymphocytes Absolute Monocytes Absolute Eosinophils Absolute Basophils VBG pH VBG pCO2 VBG pO2 VBG HCO3 VBG Total CO2 VBG O2 Saturation VBG Base Excess Sodium 138 Potassium 7.6 H* Chloride 102 Carbon Dioxide 16.3 L Anion Gap 19.7 H BUN 141 H* Creatinine 8.0 H* Estimated GFR/1.73 m2 4.95 Glucose 120 H Calcium 8.5 Magnesium Total Bilirubin 0.7 AST 47 H ALT 44 Alkaline Phosphatase 330 H Troponin I 0.07 H NT-Pro-B Natriuret Pep > 95168 H Total Protein 6.8 Albumin 2.8 L COVID-19 Source SARS-CoV-2 (PCR) [facility] Medical History Acute on chronic anemia Acute renal failure Anemia elevated ferritin Anxiety Arthritis Bacteremia Bilateral hydronephrosis Blood transfusion during current hospitalization 3 units as inpatient Chemotherapy-induced neuropathy Colonic polyp Comfort measures only status Diverticulosis DNI (do not intubate) DNR (do not resuscitate) Dying care Dyspnea and respiratory abnormalities Fatigue Goals of care, counseling/discussion Hospice care patient Moving to new residence sold her house in [place] bought new one in [place] will not live long enough to move Obesity resolved Palliative care patient Palpitations POLST (Physician Orders for Life-Sustaining Treatment) Pulmonary embolism Skin lesion Tachycardia Unintentional weight loss Surgical History S/P ACL repair left S/P lobectomy of lung removal of right lung mets from pancreatic cancer S/P thoracotomy Family History Mother , from complications of her diabetes age 80 Breast cancer Diabetes Obesity Sister No problems noted. Sister Diabetes Obesity Sister Duodenal cancer Sister , age 61 of pancreatic cancer Pancreatic cancer Obesity Sister Diabetes Obesity Daughter No problems noted. Daughter Bipolar 1 disorder Son No problems noted. Granddaughter No problems noted. Father , aged 82 from sepsis Sepsis Social History Smoking/Tobacco Use Status: Former Tobacco Use tobacco type: cigarettes Quit Date: 05/02/72 Pack-years: 6 Tobacco: How many years used: 6 Smoking risk assessment performed?: Yes Alcohol Intake: never Substance use type: does not use Caregiver/Support person: Yes Household members: spouse Housing: house Number of Children: 3 number of grandchildren: 1 Communication Needs: Corrective Lenses Education Level: college current occupation: retired dental hygienist and 4-H instructor Do you think of yourself as: straight/heterosexual Current gender identity: female What is your relationship status?: How often do you talk on the phone with friends or family?: three or more times per week How often do you get together with friends or relatives?: once per week Panel score (0-1 are the most socially isolated patients): 2 What type of physical activity do you participate in: walking and independent ambulation Duration: 15-30 minutes/day Frequency: 5-6 times per week Special tucker needs: No Seatbelt use: always Working smoke detector in home: Yes Fire extinguisher in home: Yes Do you feel safe at home: Yes Do you feel safe in your relationship?: Yes Additional Social history: to chronically ill , Tyron, who has a muscle-wasting disease attributed to his exposure to [place]. Her three children live in [place]. The two oldest, Clemente and Anuja, are unvaccinated so cannot visit their mother when she's inpatient. Her other daughter, Sherly, is enrolling in nursing school so she is vaccinated. Clemente arrives 01/19; Anuja and Sherly are trying to get the next flight out. Analilia and Tyron returned from [place] the first week of December; they just bought a house there and sold theirs in [place], with a closing date in March. She and Tyron had been planning on moving to [facility] but then Analilia was diagnosed with pancreatic cancer out of the blue. She tried three types of cancer-treatment. It's progressing VERY RAPIDLY as of Dec 31.
[2021-01-19 11:43] LABS: COVID-19 PCR Negative (Negative)
== END 2021-01-19 07:00 | disposition expired | DRG 181 ==
LOC: ER 21:13 → MS 21:29
PROVIDERS: Admitting Provider Family Medicine; Emergency Provider Registered Nurse Emergency; PCP Family Medicine; Visit Provider Family Medicine
DX: C78.01 Secondary malignant neoplasm of right lung (principal); C25.9 Malignant neoplasm of pancreas, unspecified; N17.9 Acute kidney failure, unspecified; N13.39 Other hydronephrosis; C79.51 Secondary malignant neoplasm of bone; C79.19 Secondary malignant neoplasm of other urinary organs; C78.89 Secondary malignant neoplasm of other digestive organs; C79.00 Secondary malignant neoplasm of unspecified kidney and renal pelvis; C78.02 Secondary malignant neoplasm of left lung; Z51.5 Encounter for palliative care; F41.9 Anxiety disorder, unspecified; D64.9 Anemia, unspecified; G62.2 Polyneuropathy due to other toxic agents; T45.1X5A Adverse effect of antineoplastic and immunosuppressive drugs, initial encounter; K57.90 Diverticulosis of intestine, part unspecified, without perforation or abscess without bleeding; Z66 Do not resuscitate; R06.00 Dyspnea, unspecified; R53.1 Weakness; Z86.711 Personal history of pulmonary embolism; R00.0 Tachycardia, unspecified; R63.4 Abnormal weight loss; Z87.891 Personal history of nicotine dependence; Z20.822 Contact with and (suspected) exposure to COVID-19
CPT/HCPCS: 36415; 36591; 71250; 80048; 80053; 82805; 87635; 93005; 94640; 96374; 96375; 99285; 74176; 83735; 83880; 84484; 85025; 93010; J1940; J2060; J2405; J7613